=== PATIENT | female | born 1955 | race Caucasian/White ===

== ENCOUNTER → 2018-09-03 10:35 | Outpatient (CLI) | payer OTHER, SELFPAY ==
[2018-09-03 11:27] LABS: International Normalized Ratio 1.1; Prothrombin Time (Protime)PT. 14.1 SECONDS (11.7-14.9)
[2018-09-03 11:28] LABS: Partial Thromboplast Time 25.3 Seconds (24.1-36.2)
[2018-09-03 11:30] LABS: Absolute Neutrophil Count 10.2 X10^3/uL (2.0-7.7); Basophil# 0.03 X10^3/uL; Basophil% 0.2 % (0-1); Eosinophil# 0.14 X10^3/uL; Hematocrit 33.5 % (37-47); Lymphocyte % 17.3 % (19-41); Mean Corp Hgb Conc 29.9 g/gl (32-36); Mean Corpuscular Hgb 19.7 pg (27.0-32.0); Mean Corpuscular Volume 65.9 fL (81-99); Mean Platelet Vol. 10.5 fl (6.2-12.0); Monocyte# 1.06 X10^3/uL; Monocyte% 7.6 % (0-10); Neutrophil % 73.7 % (47-70); Platelet Count 487 K/mm3 (150-450); RBC Distribution Width CV 21.2 % (11.6-14.6); RBC Distribution Width SD 49.7 fl (35.1-43.9); Red Blood Count 5.08 M/mm3 (4.2-5.4); White Blood Count 13.9 K/mm3 (4.4-11.0)
[2018-09-03 11:34] LABS: Differential Indicated SCAN CRITERIA MET; POSITIVE COUNT NO; POSITIVE DIFFERENTIAL NO; POSITIVE MORPHOLOGY YES
[2018-09-03 11:49] LABS: Anisocytosis 2+; Hypochromasia 2+; Microcytosis 1+; Platelet Estimate ADEQUATE (ADEQ); Polychromasia 1+
== END ==
PROVIDERS: Referring Provider Surgery; Visit Provider Surgery
DX: Z01.818 Encounter for other preprocedural examination (principal); D64.9 Anemia, unspecified
CPT/HCPCS: 36415; 85025; 85610; 85730

== ENCOUNTER → 2019-04-10 12:52 | Outpatient (CLI) | payer OTHER, SELFPAY ==
[2018-10-01 14:43] VITALS: BMI 29.9
[2019-04-10 13:51] LABS: Absolute Lymphocyte Count 2.93 X10^3/ul (0.83-4.51); Absolute Neutrophil Count 3.4 X10^3/uL (2.0-7.7); Basophil# 0.01 X10^3/uL; Basophil% 0.1 % (0-1); Eosinophil# 0.06 X10^3/uL; Eosinophils% 0.8 % (0-5); Hematocrit 38.4 % (37-47); Lymphocyte # 2.93 X10^3/ul (4.0); Lymphocyte % 40.3 % (19-41); Mean Corp Hgb Conc 31.3 g/gl (32-36); Mean Corpuscular Hgb 26.5 pg (27.0-32.0); Mean Platelet Vol. 10.5 fl (6.2-12.0); Monocyte# 0.84 X10^3/uL; Monocyte% 11.6 % (0-10); Neutrophil # 3.41 X10^3/uL (2.7-7.7); Neutrophil % 46.9 % (47-70); POSITIVE COUNT NO; POSITIVE DIFFERENTIAL NO; POSITIVE MORPHOLOGY NO; Platelet Count 224 K/mm3 (150-450); RBC Distribution Width CV 19.2 % (11.6-14.6); RBC Distribution Width SD 59.4 fl (35.1-43.9); Red Blood Count 4.52 M/mm3 (4.2-5.4); White Blood Count 7.3 K/mm3 (4.4-11.0)
[2019-04-10 14:12] LABS: ALB/GLOB Ratio 1.1 RATIO (0.9-2.4); AST(SGOT) 12 U/L (15-37); Alanine Aminotransfer ALT/SGPT 15 U/L (13-56); Albumin, Serum 3.6 g/dL (3.2-5.0); Alkaline Phosphatase 65 U/L (45-117); Anion Gap 7 (5-15); BUN 13 mg/dL (7-18); BUN/Creat Ratio 20.5 RATIO (10-20); Calcium,Total 8.9 mg/dL (8.5-10.1); Chloride 106 mmol/L (98-107); Creatinine, Serum 0.63 mg/dL (0.55-1.02); EST Glomerular Filtration Rate 101 mL/min (>60); Est Glom Filt Rate - Afr Amer 122 mL/min (>60); Globulin 3.4 g/dL (2.2-4.2); Glucose 89 mg/dL (74-106); Sodium Level 140 mmol/L (136-145); Thyroid Stim Hormone (TSH) 0.12 uIU/mL (0.358-3.74)
== END ==
PROVIDERS: Visit Provider Obstetrics & Gynecology Gynecologic Oncology
DX: C54.1 Malignant neoplasm of endometrium (principal)
CPT/HCPCS: 80053; 84443; 85025; 96523; A4216

== ENCOUNTER → 2019-05-01 13:02 | Outpatient (CLI) | payer OTHER, SELFPAY ==
[2018-10-01 14:43] VITALS: BMI 29.9
[2019-05-01 13:45] LABS: Absolute Lymphocyte Count 2.94 X10^3/ul (0.83-4.51); Absolute Neutrophil Count 3.2 X10^3/uL (2.0-7.7); Basophil# 0.01 X10^3/uL; Basophil% 0.1 % (0-1); Eosinophil# 0.11 X10^3/uL; Eosinophils% 1.6 % (0-5); Hematocrit 37.1 % (37-47); Hemoglobin 11.5 g/dl (12.0-15.0); Lymphocyte # 2.94 X10^3/ul (4.0); Lymphocyte % 42.7 % (19-41); Mean Corpuscular Hgb 26.1 pg (27.0-32.0); Mean Corpuscular Volume 84.3 fL (81-99); Mean Platelet Vol. 11.2 fl (6.2-12.0); Monocyte# 0.64 X10^3/uL; Monocyte% 9.3 % (0-10); Neutrophil # 3.17 X10^3/uL (2.7-7.7); Platelet Count 211 K/mm3 (150-450); RBC Distribution Width CV 16.3 % (11.6-14.6); White Blood Count 6.9 K/mm3 (4.4-11.0)
[2019-05-01 13:48] LABS: POSITIVE COUNT NO; POSITIVE DIFFERENTIAL NO; POSITIVE MORPHOLOGY NO
[2019-05-01 14:01] LABS: Albumin, Serum 3.7 g/dL (3.2-5.0); BUN 11 mg/dL (7-18); BUN/Creat Ratio 18.3 RATIO (10-20); EST Glomerular Filtration Rate 107 mL/min (>60); Est Glom Filt Rate - Afr Amer 129 mL/min (>60); Glucose 94 mg/dL (74-106); Protein, Total 7.1 g/dL (6.4-8.2)
[2019-05-01 14:02] LABS: ALB/GLOB Ratio 1.1 RATIO (0.9-2.4); AST(SGOT) 12 U/L (15-37); Alanine Aminotransfer ALT/SGPT 16 U/L (13-56); Alkaline Phosphatase 79 U/L (45-117); Anion Gap 6 (5-15); Calcium,Total 9.2 mg/dL (8.5-10.1); Chloride 108 mmol/L (98-107); Globulin 3.4 g/dL (2.2-4.2); Potassium 3.7 mmol/L (3.5-5.1); Sodium Level 142 mmol/L (136-145)
[2019-05-01 21:39] LABS: Xtra Tube EP Lab EXTRA TUBE
== END ==
PROVIDERS: Referring Provider Obstetrics & Gynecology Gynecologic Oncology; Visit Provider Obstetrics & Gynecology Gynecologic Oncology
DX: Z45.2 Encounter for adjustment and management of vascular access device (principal); C54.1 Malignant neoplasm of endometrium
CPT/HCPCS: 36591; 80053; 85025; A4216

== ENCOUNTER → 2019-05-22 12:52 | Outpatient (CLI) | payer OTHER, SELFPAY ==
[2018-10-01 14:43] VITALS: BMI 29.9
[2019-05-22 13:30] LABS: Absolute Lymphocyte Count 2.94 X10^3/uL (0.83-4.51); Absolute Neutrophil Count 3.4 X10^3/uL (2.0-7.7); Basophil# 0.02 X10^3/uL; Basophil% 0.3 % (0-1); Eosinophils% 2.8 % (0-5); Hematocrit 37.6 % (37-47); Lymphocyte # 2.94 X10^3/ul (4.0); Lymphocyte % 41.6 % (19-41); Mean Corp Hgb Conc 31.9 g/dL (32-36); Mean Corpuscular Volume 84.7 fL (81-99); Mean Platelet Vol. 10.8 fl (6.2-12.0); Monocyte# 0.51 X10^3/uL; Monocyte% 7.2 % (0-10); NRBC Flagged by Analyzer 0 % (0-5); Neutrophil # 3.38 X10^3/uL (2.7-7.7); Neutrophil % 47.8 % (47-70); Platelet Count 230 K/mm3 (150-450); RBC Distribution Width CV 14.6 % (11.6-14.6); RBC Distribution Width SD 45.3 fl (35.1-43.9); Red Blood Count 4.44 M/mm3 (4.2-5.4); White Blood Count 7.1 K/mm3 (4.4-11.0)
[2019-05-22 13:44] LABS: ALB/GLOB Ratio 1.2 RATIO (0.9-2.4); AST(SGOT) 12 U/L (15-37); Alanine Aminotransfer ALT/SGPT 15 U/L (13-56); Albumin, Serum 3.9 g/dL (3.2-5.0); Alkaline Phosphatase 78 U/L (45-117); Anion Gap 6 (5-15); BUN 13 mg/dL (7-18); BUN/Creat Ratio 18.9 RATIO (10-20); Calcium,Total 9.1 mg/dL (8.5-10.1); Chloride 108 mmol/L (98-107); Creatinine, Serum 0.69 mg/dL (0.55-1.02); EST Glomerular Filtration Rate 91 mL/min (>60); Est Glom Filt Rate - Afr Amer 111 mL/min (>60); Globulin 3.2 g/dL (2.2-4.2); Glucose 92 mg/dL (74-106); Potassium 3.8 mmol/L (3.5-5.1); Protein, Total 7.1 g/dL (6.4-8.2); Sodium Level 141 mmol/L (136-145)
== END ==
PROVIDERS: Referring Provider Obstetrics & Gynecology Gynecologic Oncology; Visit Provider Obstetrics & Gynecology Gynecologic Oncology
DX: C54.1 Malignant neoplasm of endometrium (principal)
CPT/HCPCS: 36591; 80053; 85025; A4216

== ENCOUNTER → 2019-06-12 13:22 | Outpatient (CLI) | payer OTHER, SELFPAY ==
[2018-10-01 14:43] VITALS: BMI 29.9
[2019-06-12 13:59] LABS: Absolute Lymphocyte Count 3.32 X10^3/uL (0.83-4.51); Absolute Neutrophil Count 4.6 X10^3/uL (2.0-7.7); Basophil# 0.03 X10^3/uL; Basophil% 0.3 % (0-1); Eosinophil# 0.35 X10^3/uL; Eosinophils% 3.9 % (0-5); Hematocrit 37.2 % (37-47); Hemoglobin 11.6 g/dL (12.0-15.0); Lymphocyte # 3.32 X10^3/ul (4.0); Lymphocyte % 37.4 % (19-41); Mean Corp Hgb Conc 31.2 g/dL (32-36); Mean Corpuscular Volume 83.2 fL (81-99); Mean Platelet Vol. 10.7 fl (6.2-12.0); Monocyte# 0.57 X10^3/uL; Monocyte% 6.4 % (0-10); NRBC Flagged by Analyzer 0 % (0-5); Neutrophil # 4.58 X10^3/uL (2.7-7.7); Neutrophil % 51.8 % (47-70); Platelet Count 230 K/mm3 (150-450); RBC Distribution Width CV 14.1 % (11.6-14.6); RBC Distribution Width SD 42.9 fl (35.1-43.9); Red Blood Count 4.47 M/mm3 (4.2-5.4); White Blood Count 8.9 K/mm3 (4.4-11.0)
[2019-06-12 14:16] LABS: ALB/GLOB Ratio 1.2 RATIO (0.9-2.4); AST(SGOT) 11 U/L (15-37); Alanine Aminotransfer ALT/SGPT 14 U/L (13-56); Albumin, Serum 3.7 g/dL (3.2-5.0); Alkaline Phosphatase 77 U/L (45-117); Anion Gap 8 (5-15); BUN 14 mg/dL (7-18); Calcium,Total 8.9 mg/dL (8.5-10.1); Chloride 110 mmol/L (98-107); Creatinine, Serum 0.67 mg/dL (0.55-1.02); EST Glomerular Filtration Rate 95 mL/min (>60); Est Glom Filt Rate - Afr Amer 115 mL/min (>60); Globulin 3.2 g/dL (2.2-4.2); Glucose 86 mg/dL (74-106); Potassium 3.8 mmol/L (3.5-5.1); Protein, Total 6.9 g/dL (6.4-8.2); Sodium Level 145 mmol/L (136-145)
[2019-06-12 21:52] LABS: Xtra Tube EP Lab EXTRA TUBE
== END ==
PROVIDERS: Referring Provider Obstetrics & Gynecology Gynecologic Oncology; Visit Provider Obstetrics & Gynecology Gynecologic Oncology
DX: C15.4 Malignant neoplasm of middle third of esophagus (principal)
CPT/HCPCS: 36592; 80053; 85025; A4216

== ENCOUNTER → 2019-06-25 13:53 | Outpatient (CLI) | payer OTHER, SELFPAY ==
[2018-10-01 14:43] VITALS: BMI 29.9
[2019-06-25 14:14] LABS: Absolute Lymphocyte Count 3.91 X10^3/uL (0.83-4.51); Absolute Neutrophil Count 3.3 X10^3/uL (2.0-7.7); Basophil# 0.03 X10^3/uL; Basophil% 0.4 % (0-1); Eosinophil# 0.14 X10^3/uL; Eosinophils% 1.8 % (0-5); Hemoglobin 12.5 g/dL (12.0-15.0); Lymphocyte # 3.91 X10^3/ul (4.0); Lymphocyte % 48.9 % (19-41); Mean Corp Hgb Conc 31.3 g/dL (32-36); Mean Corpuscular Hgb 25.6 pg (27.0-32.0); Mean Corpuscular Volume 81.8 fL (81-99); Mean Platelet Vol. 10.5 fl (6.2-12.0); Monocyte# 0.62 X10^3/uL; Monocyte% 7.8 % (0-10); NRBC Flagged by Analyzer 0 % (0-5); Neutrophil # 3.27 X10^3/uL (2.7-7.7); Neutrophil % 40.8 % (47-70); Platelet Count 249 K/mm3 (150-450); RBC Distribution Width CV 14.6 % (11.6-14.6); RBC Distribution Width SD 42.5 fl (35.1-43.9); Red Blood Count 4.89 M/mm3 (4.2-5.4)
[2019-06-25 14:30] LABS: ALB/GLOB Ratio 1.1 RATIO (0.9-2.4); AST(SGOT) 47 U/L (15-37); Alanine Aminotransfer ALT/SGPT 57 U/L (13-56); Albumin, Serum 3.8 g/dL (3.2-5.0); Alkaline Phosphatase 86 U/L (45-117); Anion Gap 5 (5-15); BUN 11 mg/dL (7-18); BUN/Creat Ratio 13.4 RATIO (10-20); Calcium,Total 9.2 mg/dL (8.5-10.1); Chloride 109 mmol/L (98-107); Creatinine, Serum 0.82 mg/dL (0.55-1.02); EST Glomerular Filtration Rate 75 mL/min (>60); Est Glom Filt Rate - Afr Amer 91 mL/min (>60); Globulin 3.5 g/dL (2.2-4.2); Glucose 112 mg/dL (74-106); Potassium 3.7 mmol/L (3.5-5.1); Protein, Total 7.3 g/dL (6.4-8.2); Sodium Level 143 mmol/L (136-145)
== END ==
PROVIDERS: Visit Provider Obstetrics & Gynecology Gynecologic Oncology
DX: Z45.2 Encounter for adjustment and management of vascular access device (principal); C54.1 Malignant neoplasm of endometrium
CPT/HCPCS: 36591; 80053; 85025; A4216

== ENCOUNTER → 2019-07-24 12:25 | Outpatient (CLI) | payer OTHER, SELFPAY ==
[2018-10-01 14:43] VITALS: BMI 29.9
[2019-07-24 12:57] LABS: Absolute Lymphocyte Count 3.48 X10^3/uL (0.83-4.51); Absolute Neutrophil Count 3.4 X10^3/uL (2.0-7.7); Basophil# 0.03 X10^3/uL; Basophil% 0.4 % (0-1); Eosinophil# 0.22 X10^3/uL; Eosinophils% 2.8 % (0-5); Hematocrit 36.6 % (37-47); Hemoglobin 11.3 g/dL (12.0-15.0); Lymphocyte # 3.48 X10^3/ul (4.0); Mean Corp Hgb Conc 30.9 g/dL (32-36); Mean Corpuscular Hgb 24.5 pg (27.0-32.0); Mean Corpuscular Volume 79.2 fL (81-99); Mean Platelet Vol. 9.9 fl (6.2-12.0); Monocyte# 0.62 X10^3/uL; NRBC Flagged by Analyzer 0 % (0-5); Neutrophil # 3.36 X10^3/uL (2.7-7.7); Neutrophil % 43.5 % (47-70); Platelet Count 273 K/mm3 (150-450); RBC Distribution Width CV 15.3 % (11.6-14.6); RBC Distribution Width SD 43.6 fl (35.1-43.9); Red Blood Count 4.62 M/mm3 (4.2-5.4); White Blood Count 7.7 K/mm3 (4.4-11.0)
[2019-07-24 13:16] LABS: ALB/GLOB Ratio 1.2 RATIO (0.9-2.4); AST(SGOT) 12 U/L (15-37); Alanine Aminotransfer ALT/SGPT 17 U/L (13-56); Alkaline Phosphatase 77 U/L (45-117); Anion Gap 5 (5-15); BUN 12 mg/dL (7-18); Calcium,Total 9.2 mg/dL (8.5-10.1); Chloride 108 mmol/L (98-107); Creatinine, Serum 0.67 mg/dL (0.55-1.02); EST Glomerular Filtration Rate 95 mL/min (>60); Est Glom Filt Rate - Afr Amer 114 mL/min (>60); Globulin 3.3 g/dL (2.2-4.2); Glucose 94 mg/dL (74-106); Potassium 3.8 mmol/L (3.5-5.1); Protein, Total 7.3 g/dL (6.4-8.2); Sodium Level 141 mmol/L (136-145)
[2019-07-24 20:54] LABS: Xtra Tube EP Lab EXTRA TUBE
== END ==
PROVIDERS: Referring Provider Obstetrics & Gynecology Gynecologic Oncology; Visit Provider Obstetrics & Gynecology Gynecologic Oncology
DX: C54.1 Malignant neoplasm of endometrium (principal)
CPT/HCPCS: 36592; 80053; 85025; A4216

== ENCOUNTER → 2019-08-14 12:41 | Outpatient (CLI) | payer OTHER, SELFPAY ==
[2018-10-01 14:43] VITALS: BMI 29.9
[2019-08-14 12:58] LABS: Absolute Lymphocyte Count 2.26 X10^3/uL (0.83-4.51); Absolute Neutrophil Count 6.7 X10^3/uL (2.0-7.7); Basophil# 0.04 X10^3/uL; Basophil% 0.4 % (0-1); Eosinophil# 0.17 X10^3/uL; Eosinophils% 1.7 % (0-5); Hemoglobin 11.4 g/dL (12.0-15.0); Lymphocyte # 2.26 X10^3/ul (4.0); Lymphocyte % 22.8 % (19-41); Mean Corp Hgb Conc 30.8 g/dL (32-36); Mean Corpuscular Hgb 24.1 pg (27.0-32.0); Mean Corpuscular Volume 78.1 fL (81-99); Mean Platelet Vol. 9.9 fl (6.2-12.0); Monocyte# 0.72 X10^3/uL; Monocyte% 7.3 % (0-10); NRBC Flagged by Analyzer 0 % (0-5); Neutrophil # 6.67 X10^3/uL (2.7-7.7); Neutrophil % 67.3 % (47-70); Platelet Count 263 K/mm3 (150-450); RBC Distribution Width CV 16.4 % (11.6-14.6); RBC Distribution Width SD 46.4 fl (35.1-43.9); Red Blood Count 4.74 M/mm3 (4.2-5.4); White Blood Count 9.9 K/mm3 (4.4-11.0)
[2019-08-14 13:16] LABS: ALB/GLOB Ratio 1.1 RATIO (0.9-2.4); AST(SGOT) 11 U/L (15-37); Alanine Aminotransfer ALT/SGPT 18 U/L (13-56); Albumin, Serum 3.8 g/dL (3.2-5.0); Alkaline Phosphatase 76 U/L (45-117); Anion Gap 5 (5-15); BUN 7 mg/dL (7-18); BUN/Creat Ratio 10.1 RATIO (10-20); Calcium,Total 8.9 mg/dL (8.5-10.1); Chloride 109 mmol/L (98-107); Creatinine, Serum 0.69 mg/dL (0.55-1.02); EST Glomerular Filtration Rate 91 mL/min (>60); Est Glom Filt Rate - Afr Amer 110 mL/min (>60); Globulin 3.5 g/dL (2.2-4.2); Glucose 105 mg/dL (74-106); Potassium 3.8 mmol/L (3.5-5.1); Protein, Total 7.3 g/dL (6.4-8.2); Sodium Level 141 mmol/L (136-145)
== END ==
PROVIDERS: Referring Provider Obstetrics & Gynecology Gynecologic Oncology; Visit Provider Obstetrics & Gynecology Gynecologic Oncology
DX: C54.1 Malignant neoplasm of endometrium (principal)
CPT/HCPCS: 36415; 36591; 80053; 85025; A4216

== ENCOUNTER → 2019-08-23 12:30 | Outpatient (CLI) | payer OTHER, SELFPAY ==
[2018-10-01 14:43] VITALS: BMI 29.9
[2019-08-23 13:00] LABS: Absolute Neutrophil Count 4.2 X10^3/uL (2.0-7.7); Basophil# 0.05 X10^3/uL; Basophil% 0.6 % (0-1); Eosinophil# 0.26 X10^3/uL; Eosinophils% 2.9 % (0-5); Hematocrit 37.2 % (37-47); Hemoglobin 11.3 g/dL (12.0-15.0); Mean Corp Hgb Conc 30.4 g/dL (32-36); Mean Corpuscular Hgb 23.7 pg (27.0-32.0); Mean Platelet Vol. 10.2 fl (6.2-12.0); Monocyte% 8.9 % (0-10); NRBC Flagged by Analyzer 0 % (0-5); Neutrophil # 4.17 X10^3/uL (2.7-7.7); Platelet Count 334 K/mm3 (150-450); RBC Distribution Width CV 16.9 % (11.6-14.6); RBC Distribution Width SD 47.6 fl (35.1-43.9); Red Blood Count 4.77 M/mm3 (4.2-5.4)
[2019-08-23 13:09] LABS: AST(SGOT) 12 U/L (15-37); Alanine Aminotransfer ALT/SGPT 23 U/L (13-56); Albumin, Serum 3.6 g/dL (3.2-5.0); Alkaline Phosphatase 84 U/L (45-117); Anion Gap 7 (5-15); BUN 9 mg/dL (7-18); BUN/Creat Ratio 14.4 RATIO (10-20); Calcium,Total 8.7 mg/dL (8.5-10.1); Chloride 109 mmol/L (98-107); Creatinine, Serum 0.63 mg/dL (0.55-1.02); EST Glomerular Filtration Rate 102 mL/min (>60); Est Glom Filt Rate - Afr Amer 123 mL/min (>60); Globulin 3.6 g/dL (2.2-4.2); Glucose 91 mg/dL (74-106); Protein, Total 7.2 g/dL (6.4-8.2); Sodium Level 142 mmol/L (136-145)
== END ==
PROVIDERS: Visit Provider Obstetrics & Gynecology Gynecologic Oncology
DX: C54.1 Malignant neoplasm of endometrium (principal)
CPT/HCPCS: 36592; 80053; 85025; A4216

== ENCOUNTER → 2019-09-04 09:54 | Outpatient (CLI) | payer OTHER, SELFPAY ==
[2018-10-01 14:43] VITALS: BMI 29.9
[2019-09-04 10:17] LABS: Absolute Lymphocyte Count 2.96 X10^3/uL (0.83-4.51); Absolute Neutrophil Count 3.2 X10^3/uL (2.0-7.7); Basophil# 0.03 X10^3/uL; Basophil% 0.4 % (0-1); Eosinophil# 0.25 X10^3/uL; Eosinophils% 3.5 % (0-5); Hemoglobin 10.5 g/dL (12.0-15.0); Lymphocyte # 2.96 X10^3/ul (4.0); Lymphocyte % 41.5 % (19-41); Mean Corpuscular Hgb 23.5 pg (27.0-32.0); Mean Corpuscular Volume 78.3 fL (81-99); Mean Platelet Vol. 10.2 fl (6.2-12.0); Monocyte# 0.68 X10^3/uL; Monocyte% 9.5 % (0-10); NRBC Flagged by Analyzer 0 % (0-5); Neutrophil % 44.8 % (47-70); Platelet Count 306 K/mm3 (150-450); RBC Distribution Width CV 17.3 % (11.6-14.6); RBC Distribution Width SD 48.8 fl (35.1-43.9); Red Blood Count 4.47 M/mm3 (4.2-5.4); White Blood Count 7.1 K/mm3 (4.4-11.0)
[2019-09-04 10:32] LABS: AST(SGOT) 12 U/L (15-37); Alanine Aminotransfer ALT/SGPT 19 U/L (13-56); Albumin, Serum 3.6 g/dL (3.2-5.0); Alkaline Phosphatase 73 U/L (45-117); Anion Gap 6 (5-15); BUN 9 mg/dL (7-18); BUN/Creat Ratio 13.2 RATIO (10-20); Calcium,Total 8.7 mg/dL (8.5-10.1); Chloride 110 mmol/L (98-107); Creatinine, Serum 0.68 mg/dL (0.55-1.02); EST Glomerular Filtration Rate 93 mL/min (>60); Est Glom Filt Rate - Afr Amer 112 mL/min (>60); Globulin 3.5 g/dL (2.2-4.2); Glucose 108 mg/dL (74-106); Potassium 3.7 mmol/L (3.5-5.1); Protein, Total 7.1 g/dL (6.4-8.2); Sodium Level 141 mmol/L (136-145)
== END ==
PROVIDERS: Referring Provider Obstetrics & Gynecology Gynecologic Oncology; Visit Provider Obstetrics & Gynecology Gynecologic Oncology
DX: C54.1 Malignant neoplasm of endometrium (principal)
CPT/HCPCS: 36591; 80053; 85025; A4216

== ENCOUNTER → 2019-09-25 11:55 | Outpatient (CLI) | payer OTHER, SELFPAY ==
[2018-10-01 14:43] VITALS: BMI 29.9
[2019-09-25 12:47] LABS: Absolute Lymphocyte Count 3.21 X10^3/uL (0.83-4.51); Absolute Neutrophil Count 3.9 X10^3/uL (2.0-7.7); Basophil# 0.03 X10^3/uL; Basophil% 0.4 % (0-1); Eosinophil# 0.42 X10^3/uL; Hematocrit 36.2 % (37-47); Lymphocyte # 3.21 X10^3/ul (4.0); Lymphocyte % 38.3 % (19-41); Mean Corp Hgb Conc 30.4 g/dL (32-36); Mean Corpuscular Hgb 23.5 pg (27.0-32.0); Mean Corpuscular Volume 77.2 fL (81-99); Mean Platelet Vol. 10.4 fl (6.2-12.0); Monocyte# 0.77 X10^3/uL; Monocyte% 9.2 % (0-10); NRBC Flagged by Analyzer 0 % (0-5); Neutrophil # 3.93 X10^3/uL (2.7-7.7); Neutrophil % 46.7 % (47-70); Platelet Count 313 K/mm3 (150-450); RBC Distribution Width CV 17.1 % (11.6-14.6); RBC Distribution Width SD 47.6 fl (35.1-43.9); Red Blood Count 4.69 M/mm3 (4.2-5.4); White Blood Count 8.4 K/mm3 (4.4-11.0)
[2019-09-25 13:06] LABS: International Normalized Ratio 2.7; Prothrombin Time (Protime)PT. 28.7 SECONDS (11.7-14.9)
[2019-09-25 13:08] LABS: AST(SGOT) 11 U/L (15-37); Alanine Aminotransfer ALT/SGPT 20 U/L (13-56); Albumin, Serum 3.7 g/dL (3.2-5.0); Alkaline Phosphatase 76 U/L (45-117); Anion Gap 6 (5-15); BUN 12 mg/dL (7-18); BUN/Creat Ratio 15.1 RATIO (10-20); Calcium,Total 8.5 mg/dL (8.5-10.1); Chloride 107 mmol/L (98-107); Creatinine, Serum 0.79 mg/dL (0.55-1.02); EST Glomerular Filtration Rate 78 mL/min (>60); Est Glom Filt Rate - Afr Amer 94 mL/min (>60); Globulin 3.6 g/dL (2.2-4.2); Glucose 106 mg/dL (74-106); Potassium 3.7 mmol/L (3.5-5.1); Protein, Total 7.3 g/dL (6.4-8.2); Sodium Level 141 mmol/L (136-145)
== END ==
PROVIDERS: Referring Provider Obstetrics & Gynecology Gynecologic Oncology; Visit Provider Obstetrics & Gynecology Gynecologic Oncology
DX: C54.1 Malignant neoplasm of endometrium (principal); K55.069 Acute infarction of intestine, part and extent unspecified
CPT/HCPCS: 36591; 80053; 85025; 85610; A4216

== ENCOUNTER → 2019-10-14 11:13 | Outpatient (CLI) | payer OTHER, SELFPAY ==
[2018-10-01 14:43] VITALS: BMI 29.9
[2019-10-14 11:43] LABS: Absolute Lymphocyte Count 3.17 X10^3/uL (0.83-4.51); Basophil# 0.04 X10^3/uL; Basophil% 0.6 % (0-1); Eosinophil# 0.29 X10^3/uL; Eosinophils% 4.1 % (0-5); Hematocrit 34.5 % (37-47); Hemoglobin 10.3 g/dL (12.0-15.0); Lymphocyte # 3.17 X10^3/ul (4.0); Lymphocyte % 44.5 % (19-41); Mean Corp Hgb Conc 29.9 g/dL (32-36); Mean Corpuscular Hgb 22.7 pg (27.0-32.0); Mean Corpuscular Volume 76.2 fL (81-99); Mean Platelet Vol. 10.4 fl (6.2-12.0); Monocyte# 0.65 X10^3/uL; Monocyte% 9.1 % (0-10); NRBC Flagged by Analyzer 0 % (0-5); Neutrophil # 2.96 X10^3/uL (2.7-7.7); Neutrophil % 41.4 % (47-70); Platelet Count 287 K/mm3 (150-450); RBC Distribution Width SD 46.5 fl (35.1-43.9); Red Blood Count 4.53 M/mm3 (4.2-5.4); White Blood Count 7.1 K/mm3 (4.4-11.0)
[2019-10-14 11:51] LABS: ALB/GLOB Ratio 1.1 RATIO (0.9-2.4); AST(SGOT) 12 U/L (15-37); Alanine Aminotransfer ALT/SGPT 20 U/L (13-56); Albumin, Serum 3.6 g/dL (3.2-5.0); Alkaline Phosphatase 86 U/L (45-117); Anion Gap 5 (5-15); BUN 11 mg/dL (7-18); BUN/Creat Ratio 16.6 RATIO (10-20); Calcium,Total 8.3 mg/dL (8.5-10.1); Chloride 110 mmol/L (98-107); Creatinine, Serum 0.66 mg/dL (0.55-1.02); EST Glomerular Filtration Rate 96 mL/min (>60); Est Glom Filt Rate - Afr Amer 116 mL/min (>60); Globulin 3.3 g/dL (2.2-4.2); Glucose 103 mg/dL (74-106); Protein, Total 6.9 g/dL (6.4-8.2); Sodium Level 143 mmol/L (136-145)
[2019-10-14 11:56] LABS: Prothrombin Time (Protime)PT. 36.1 SECONDS (11.7-14.9)
[2019-10-14 12:25] LABS: International Normalized Ratio 3.6
== END ==
PROVIDERS: Referring Provider Obstetrics & Gynecology Gynecologic Oncology; Visit Provider Obstetrics & Gynecology Gynecologic Oncology
DX: C54.1 Malignant neoplasm of endometrium (principal)
CPT/HCPCS: 36591; 80053; 85025; 85610; A4216

== ENCOUNTER → 2019-11-06 10:33 | Outpatient (CLI) | payer OTHER, SELFPAY ==
[2018-10-01 14:43] VITALS: BMI 29.9
[2019-11-06 11:09] LABS: Absolute Lymphocyte Count 2.69 X10^3/uL (0.83-4.51); Absolute Neutrophil Count 2.8 X10^3/uL (2.0-7.7); Basophil# 0.04 X10^3/uL; Basophil% 0.6 % (0-1); Eosinophil# 0.21 X10^3/uL; Eosinophils% 3.3 % (0-5); Hematocrit 33.4 % (37-47); Hemoglobin 9.7 g/dL (12.0-15.0); Lymphocyte # 2.69 X10^3/ul (4.0); Lymphocyte % 42.6 % (19-41); Mean Corpuscular Hgb 21.6 pg (27.0-32.0); Mean Corpuscular Volume 74.2 fL (81-99); Mean Platelet Vol. 10.4 fl (6.2-12.0); Monocyte# 0.53 X10^3/uL; Monocyte% 8.4 % (0-10); NRBC Flagged by Analyzer 0 % (0-5); Neutrophil # 2.84 X10^3/uL (2.7-7.7); Neutrophil % 44.9 % (47-70); Platelet Count 288 K/mm3 (150-450); RBC Distribution Width CV 17.1 % (11.6-14.6); RBC Distribution Width SD 45.1 fl (35.1-43.9); White Blood Count 6.3 K/mm3 (4.4-11.0)
[2019-11-06 11:19] LABS: International Normalized Ratio 1.6; Prothrombin Time (Protime)PT. 18.7 SECONDS (11.7-14.9)
[2019-11-06 11:25] LABS: AST(SGOT) 11 U/L (15-37); Alanine Aminotransfer ALT/SGPT 17 U/L (13-56); Albumin, Serum 3.5 g/dL (3.2-5.0); Alkaline Phosphatase 82 U/L (45-117); Anion Gap 5 (5-15); BUN 12 mg/dL (7-18); BUN/Creat Ratio 18.7 RATIO (10-20); Calcium,Total 8.6 mg/dL (8.5-10.1); Chloride 110 mmol/L (98-107); Creatinine, Serum 0.64 mg/dL (0.55-1.02); EST Glomerular Filtration Rate 99 mL/min (>60); Est Glom Filt Rate - Afr Amer 120 mL/min (>60); Globulin 3.5 g/dL (2.2-4.2); Glucose 92 mg/dL (74-106); Potassium 3.7 mmol/L (3.5-5.1); Sodium Level 143 mmol/L (136-145)
== END ==
PROVIDERS: Referring Provider Obstetrics & Gynecology Gynecologic Oncology; Visit Provider Obstetrics & Gynecology Gynecologic Oncology
DX: Z45.2 Encounter for adjustment and management of vascular access device (principal); C54.1 Malignant neoplasm of endometrium
CPT/HCPCS: 36591; 80053; 85025; 85610; A4216

== ENCOUNTER → 2019-11-27 10:24 | Outpatient (CLI) | payer OTHER, SELFPAY ==
[2018-10-01 14:43] VITALS: BMI 29.9
[2019-11-27 10:53] LABS: Absolute Lymphocyte Count 3.19 X10^3/uL (0.83-4.51); Basophil# 0.03 X10^3/uL; Basophil% 0.4 % (0-1); Eosinophil# 0.19 X10^3/uL; Eosinophils% 2.7 % (0-5); Hematocrit 33.3 % (37-47); Hemoglobin 9.9 g/dL (12.0-15.0); Lymphocyte # 3.19 X10^3/ul (4.0); Lymphocyte % 45.6 % (19-41); Mean Corp Hgb Conc 29.7 g/dL (32-36); Mean Corpuscular Hgb 21.7 pg (27.0-32.0); Mean Corpuscular Volume 72.9 fL (81-99); Mean Platelet Vol. 10.2 fl (6.2-12.0); Monocyte# 0.59 X10^3/uL; Monocyte% 8.4 % (0-10); NRBC Flagged by Analyzer 0 % (0-5); Neutrophil # 2.98 X10^3/uL (2.7-7.7); Neutrophil % 42.6 % (47-70); Platelet Count 297 K/mm3 (150-450); RBC Distribution Width CV 17.2 % (11.6-14.6); RBC Distribution Width SD 44.9 fl (35.1-43.9); Red Blood Count 4.57 M/mm3 (4.2-5.4)
[2019-11-27 11:10] LABS: AST(SGOT) 10 U/L (15-37); Alanine Aminotransfer ALT/SGPT 17 U/L (13-56); Albumin, Serum 3.6 g/dL (3.2-5.0); Alkaline Phosphatase 83 U/L (45-117); Anion Gap 4 (5-15); BUN 10 mg/dL (7-18); BUN/Creat Ratio 13.8 RATIO (10-20); Calcium,Total 8.8 mg/dL (8.5-10.1); Chloride 111 mmol/L (98-107); Creatinine, Serum 0.73 mg/dL (0.55-1.02); EST Glomerular Filtration Rate 86 mL/min (>60); Est Glom Filt Rate - Afr Amer 104 mL/min (>60); Globulin 3.5 g/dL (2.2-4.2); Glucose 104 mg/dL (74-106); Potassium 3.6 mmol/L (3.5-5.1); Protein, Total 7.1 g/dL (6.4-8.2); Sodium Level 142 mmol/L (136-145)
== END ==
PROVIDERS: Referring Provider Obstetrics & Gynecology Gynecologic Oncology; Visit Provider Obstetrics & Gynecology Gynecologic Oncology
DX: Z45.2 Encounter for adjustment and management of vascular access device (principal); C54.1 Malignant neoplasm of endometrium
CPT/HCPCS: 36415; 80053; 85025; 96523; A4216

== ENCOUNTER → 2019-12-18 12:21 | Outpatient (CLI) | payer OTHER, SELFPAY ==
[2018-10-01 14:43] VITALS: BMI 29.9
[2019-12-18 12:54] LABS: Absolute Lymphocyte Count 2.69 X10^3/uL (0.83-4.51); Absolute Neutrophil Count 3.6 X10^3/uL (2.0-7.7); Basophil# 0.03 X10^3/uL; Basophil% 0.4 % (0-1); Eosinophil# 0.15 X10^3/uL; Eosinophils% 2.1 % (0-5); Hematocrit 32.2 % (37-47); Hemoglobin 9.3 g/dL (12.0-15.0); Lymphocyte # 2.69 X10^3/ul (4.0); Lymphocyte % 37.6 % (19-41); Mean Corp Hgb Conc 28.9 g/dL (32-36); Mean Corpuscular Hgb 20.9 pg (27.0-32.0); Mean Corpuscular Volume 72.2 fL (81-99); Mean Platelet Vol. 10.1 fl (6.2-12.0); Monocyte# 0.69 X10^3/uL; Monocyte% 9.7 % (0-10); NRBC Flagged by Analyzer 0 % (0-5); Neutrophil # 3.56 X10^3/uL (2.7-7.7); Neutrophil % 49.8 % (47-70); Platelet Count 280 K/mm3 (150-450); RBC Distribution Width CV 18.1 % (11.6-14.6); RBC Distribution Width SD 46.2 fl (35.1-43.9); Red Blood Count 4.46 M/mm3 (4.2-5.4); White Blood Count 7.2 K/mm3 (4.4-11.0)
[2019-12-18 13:05] LABS: International Normalized Ratio 2.7; Prothrombin Time (Protime)PT. 28.6 SECONDS (11.7-14.9)
[2019-12-18 13:09] LABS: AST(SGOT) 11 U/L (15-37); Alanine Aminotransfer ALT/SGPT 19 U/L (13-56); Albumin, Serum 3.8 g/dL (3.2-5.0); Alkaline Phosphatase 85 U/L (45-117); Anion Gap 5 (5-15); BUN 11 mg/dL (7-18); BUN/Creat Ratio 16.6 RATIO (10-20); Calcium,Total 8.7 mg/dL (8.5-10.1); Chloride 109 mmol/L (98-107); Creatinine, Serum 0.66 mg/dL (0.55-1.02); EST Glomerular Filtration Rate 95 mL/min (>60); Est Glom Filt Rate - Afr Amer 116 mL/min (>60); Globulin 3.7 g/dL (2.2-4.2); Glucose 96 mg/dL (74-106); Potassium 3.8 mmol/L (3.5-5.1); Protein, Total 7.5 g/dL (6.4-8.2); Sodium Level 141 mmol/L (136-145)
== END ==
PROVIDERS: Referring Provider Obstetrics & Gynecology Gynecologic Oncology; Visit Provider Obstetrics & Gynecology Gynecologic Oncology
DX: C54.1 Malignant neoplasm of endometrium (principal); K55.069 Acute infarction of intestine, part and extent unspecified
CPT/HCPCS: 36591; 80053; 85025; 85610; A4216

== ENCOUNTER → 2020-01-08 09:55 | Outpatient (CLI) | payer OTHER, SELFPAY ==
[2018-10-01 14:43] VITALS: BMI 29.9
[2020-01-08 10:26] LABS: Absolute Lymphocyte Count 2.62 X10^3/uL (0.83-4.51); Absolute Neutrophil Count 2.8 X10^3/uL (2.0-7.7); Basophil# 0.04 X10^3/uL; Basophil% 0.6 % (0-1); Eosinophil# 0.25 X10^3/uL; Hematocrit 31.7 % (37-47); Hemoglobin 9.1 g/dL (12.0-15.0); Lymphocyte # 2.62 X10^3/ul (4.0); Lymphocyte % 41.6 % (19-41); Mean Corp Hgb Conc 28.7 g/dL (32-36); Mean Corpuscular Hgb 20.6 pg (27.0-32.0); Mean Corpuscular Volume 71.9 fL (81-99); Mean Platelet Vol. 10.2 fl (6.2-12.0); Monocyte# 0.57 X10^3/uL; NRBC Flagged by Analyzer 0 % (0-5); Neutrophil # 2.79 X10^3/uL (2.7-7.7); Neutrophil % 44.3 % (47-70); Platelet Count 301 K/mm3 (150-450); RBC Distribution Width CV 18.6 % (11.6-14.6); RBC Distribution Width SD 47.3 fl (35.1-43.9); Red Blood Count 4.41 M/mm3 (4.2-5.4); White Blood Count 6.3 K/mm3 (4.4-11.0)
[2020-01-08 10:42] LABS: AST(SGOT) 15 U/L (15-37); Alanine Aminotransfer ALT/SGPT 17 U/L (13-56); Albumin, Serum 3.5 g/dL (3.2-5.0); Alkaline Phosphatase 83 U/L (45-117); Anion Gap 6 (5-15); BUN 12 mg/dL (7-18); BUN/Creat Ratio 17.6 RATIO (10-20); Calcium,Total 8.4 mg/dL (8.5-10.1); Chloride 109 mmol/L (98-107); Creatinine, Serum 0.68 mg/dL (0.55-1.02); EST Glomerular Filtration Rate 92 mL/min (>60); Est Glom Filt Rate - Afr Amer 112 mL/min (>60); Globulin 3.4 g/dL (2.2-4.2); Glucose 119 mg/dL (74-106); Potassium 3.7 mmol/L (3.5-5.1); Protein, Total 6.9 g/dL (6.4-8.2); Sodium Level 140 mmol/L (136-145)
[2020-01-08 10:43] LABS: International Normalized Ratio 2.3
== END ==
PROVIDERS: Referring Provider Obstetrics & Gynecology Gynecologic Oncology; Visit Provider Obstetrics & Gynecology Gynecologic Oncology
DX: Z45.2 Encounter for adjustment and management of vascular access device (principal); C54.1 Malignant neoplasm of endometrium
CPT/HCPCS: 36591; 80053; 85025; 85610; A4216

== ENCOUNTER → 2020-01-29 10:15 | Outpatient (CLI) | payer OTHER, SELFPAY ==
[2018-10-01 14:43] VITALS: BMI 29.9
[2020-01-29] MEDS: 0.9% NaCl VAD Flush IV (10:29)
[2020-01-29 10:40] LABS: Absolute Neutrophil Count 3.4 X10^3/uL (2.0-7.7); Basophil# 0.03 X10^3/uL; Basophil% 0.4 % (0-1); Eosinophil# 0.22 X10^3/uL; Eosinophils% 3.2 % (0-5); Hematocrit 32.8 % (37-47); Hemoglobin 9.3 g/dL (12.0-15.0); Lymphocyte % 36.9 % (19-41); Mean Corp Hgb Conc 28.4 g/dL (32-36); Mean Corpuscular Hgb 20.1 pg (27.0-32.0); Mean Corpuscular Volume 70.8 fL (81-99); Mean Platelet Vol. 9.9 fl (6.2-12.0); Monocyte# 0.61 X10^3/uL; NRBC Flagged by Analyzer 0 % (0-5); Neutrophil # 3.39 X10^3/uL (2.7-7.7); Neutrophil % 50.1 % (47-70); Platelet Count 338 K/mm3 (150-450); RBC Distribution Width CV 18.5 % (11.6-14.6); RBC Distribution Width SD 46.4 fl (35.1-43.9); Red Blood Count 4.63 M/mm3 (4.2-5.4); White Blood Count 6.8 K/mm3 (4.4-11.0)
[2020-01-29 10:55] LABS: ALB/GLOB Ratio 1.1 RATIO (0.9-2.4); AST(SGOT) 13 U/L (15-37); Alanine Aminotransfer ALT/SGPT 18 U/L (13-56); Albumin, Serum 3.7 g/dL (3.2-5.0); Alkaline Phosphatase 86 U/L (45-117); Anion Gap 5 (5-15); BUN 13 mg/dL (7-18); BUN/Creat Ratio 17.4 RATIO (10-20); Calcium,Total 8.8 mg/dL (8.5-10.1); Chloride 112 mmol/L (98-107); Creatinine, Serum 0.74 mg/dL (0.55-1.02); EST Glomerular Filtration Rate 83 mL/min (>60); Est Glom Filt Rate - Afr Amer 101 mL/min (>60); Globulin 3.3 g/dL (2.2-4.2); Glucose 101 mg/dL (74-106); Potassium 3.8 mmol/L (3.5-5.1); Sodium Level 143 mmol/L (136-145)
[2020-01-29 11:00] LABS: Prothrombin Time (Protime)PT. 36.1 SECONDS (11.7-14.9)
[2020-01-29 11:29] LABS: International Normalized Ratio 3.7
== END ==
PROVIDERS: Referring Provider Obstetrics & Gynecology Gynecologic Oncology; Visit Provider Obstetrics & Gynecology Gynecologic Oncology
DX: Z45.2 Encounter for adjustment and management of vascular access device (principal); C54.1 Malignant neoplasm of endometrium; K55.069 Acute infarction of intestine, part and extent unspecified
CPT/HCPCS: 36592; 80053; 85025; 85610; A4216

== ENCOUNTER → 2020-02-03 13:23 | Outpatient (CLI) | payer OTHER, SELFPAY ==
[2018-10-01 14:43] VITALS: BMI 29.9
[2020-02-03 15:25] LABS: International Normalized Ratio 2.8; Prothrombin Time (Protime)PT. 28.8 SECONDS (11.7-14.9)
== END ==
PROVIDERS: Referring Provider Obstetrics & Gynecology Gynecologic Oncology; Visit Provider Obstetrics & Gynecology Gynecologic Oncology
DX: Z45.2 Encounter for adjustment and management of vascular access device (principal); C54.1 Malignant neoplasm of endometrium; K55.069 Acute infarction of intestine, part and extent unspecified
CPT/HCPCS: 36415; 85610

== ENCOUNTER → 2020-02-18 13:25 | Outpatient (CLI) | payer OTHER, SELFPAY ==
[2018-10-01 14:43] VITALS: BMI 29.9
[2020-02-18 13:52] LABS: Absolute Lymphocyte Count 2.42 X10^3/uL (0.83-4.51); Absolute Neutrophil Count 4.8 X10^3/uL (2.0-7.7); Basophil# 0.03 X10^3/uL; Basophil% 0.4 % (0-1); Eosinophil# 0.15 X10^3/uL; Eosinophils% 1.9 % (0-5); Hematocrit 30.6 % (37-47); Hemoglobin 8.8 g/dL (12.0-15.0); Lymphocyte # 2.42 X10^3/ul (4.0); Lymphocyte % 30.5 % (19-41); Mean Corp Hgb Conc 28.8 g/dL (32-36); Mean Corpuscular Hgb 19.8 pg (27.0-32.0); Mean Corpuscular Volume 68.9 fL (81-99); Mean Platelet Vol. 10.1 fl (6.2-12.0); Monocyte# 0.53 X10^3/uL; Monocyte% 6.7 % (0-10); NRBC Flagged by Analyzer 0 % (0-5); Neutrophil # 4.78 X10^3/uL (2.7-7.7); Neutrophil % 60.1 % (47-70); Platelet Count 342 K/mm3 (150-450); RBC Distribution Width CV 18.4 % (11.6-14.6); RBC Distribution Width SD 45.3 fl (35.1-43.9); Red Blood Count 4.44 M/mm3 (4.2-5.4); White Blood Count 7.9 K/mm3 (4.4-11.0)
[2020-02-18 13:55] LABS: International Normalized Ratio 2.7; Prothrombin Time (Protime)PT. 28.3 SECONDS (11.7-14.9)
[2020-02-18 14:02] LABS: AST(SGOT) 11 U/L (15-37); Alanine Aminotransfer ALT/SGPT 18 U/L (13-56); Albumin, Serum 3.5 g/dL (3.2-5.0); Alkaline Phosphatase 84 U/L (45-117); Anion Gap 6 (5-15); BUN 10 mg/dL (7-18); BUN/Creat Ratio 14.3 RATIO (10-20); Calcium,Total 8.6 mg/dL (8.5-10.1); Chloride 110 mmol/L (98-107); EST Glomerular Filtration Rate 89 mL/min (>60); Est Glom Filt Rate - Afr Amer 108 mL/min (>60); Globulin 3.4 g/dL (2.2-4.2); Glucose 110 mg/dL (74-106); Potassium 3.5 mmol/L (3.5-5.1); Protein, Total 6.9 g/dL (6.4-8.2); Sodium Level 142 mmol/L (136-145)
== END ==
PROVIDERS: Referring Provider Obstetrics & Gynecology Gynecologic Oncology; Visit Provider Obstetrics & Gynecology Gynecologic Oncology
DX: Z45.2 Encounter for adjustment and management of vascular access device (principal); C54.1 Malignant neoplasm of endometrium; K55.069 Acute infarction of intestine, part and extent unspecified
CPT/HCPCS: 36592; 80053; 85025; 85610; A4216

== ENCOUNTER → 2020-03-11 13:19 | Outpatient (CLI) | payer OTHER, SELFPAY ==
[2018-10-01 14:43] VITALS: BMI 29.9
[2020-03-11] MEDS: 0.9% Saline Lock 10 ML Syringe IV (13:37)
[2020-03-11] MEDS: 0.9 % NaCl (Sterile) Posiflush 10 mL IV (13:37)
[2020-03-11 13:55] LABS: Absolute Lymphocyte Count 2.81 X10^3/uL (0.83-4.51); Absolute Neutrophil Count 3.7 X10^3/uL (2.0-7.7); Basophil# 0.03 X10^3/uL; Basophil% 0.4 % (0-1); Eosinophil# 0.15 X10^3/uL; Hematocrit 31.4 % (37-47); Hemoglobin 8.8 g/dL (12.0-15.0); Lymphocyte # 2.81 X10^3/ul (4.0); Lymphocyte % 38.2 % (19-41); Mean Corpuscular Hgb 19.2 pg (27.0-32.0); Mean Corpuscular Volume 68.6 fL (81-99); Mean Platelet Vol. 10.4 fl (6.2-12.0); Monocyte# 0.62 X10^3/uL; Monocyte% 8.4 % (0-10); NRBC Flagged by Analyzer 0 % (0-5); Neutrophil # 3.73 X10^3/uL (2.7-7.7); Neutrophil % 50.7 % (47-70); Platelet Count 370 K/mm3 (150-450); RBC Distribution Width CV 18.7 % (11.6-14.6); RBC Distribution Width SD 45.1 fl (35.1-43.9); Red Blood Count 4.58 M/mm3 (4.2-5.4); White Blood Count 7.4 K/mm3 (4.4-11.0)
[2020-03-11 14:07] LABS: ALB/GLOB Ratio 1.1 RATIO (0.9-2.4); AST(SGOT) 10 U/L (15-37); Alanine Aminotransfer ALT/SGPT 18 U/L (13-56); Albumin, Serum 3.7 g/dL (3.2-5.0); Alkaline Phosphatase 93 U/L (45-117); Anion Gap 6 (5-15); BUN 9 mg/dL (7-18); BUN/Creat Ratio 13.1 RATIO (10-20); Chloride 107 mmol/L (98-107); Creatinine, Serum 0.68 mg/dL (0.55-1.02); EST Glomerular Filtration Rate 92 mL/min (>60); Est Glom Filt Rate - Afr Amer 111 mL/min (>60); Globulin 3.5 g/dL (2.2-4.2); Glucose 96 mg/dL (74-106); Potassium 3.6 mmol/L (3.5-5.1); Protein, Total 7.2 g/dL (6.4-8.2); Sodium Level 140 mmol/L (136-145)
[2020-03-11 14:10] LABS: International Normalized Ratio 2.7; Prothrombin Time (Protime)PT. 28.2 SECONDS (11.7-14.9)
[2020-03-11 21:46] LABS: Xtra Tube EP Lab EXTRA TUBE
== END ==
PROVIDERS: Referring Provider Obstetrics & Gynecology Gynecologic Oncology; Visit Provider Obstetrics & Gynecology Gynecologic Oncology
DX: C54.1 Malignant neoplasm of endometrium (principal); K55.069 Acute infarction of intestine, part and extent unspecified
CPT/HCPCS: 36591; 80053; 85025; 85610; A4216

== ENCOUNTER → 2020-04-21 09:50 | Outpatient (CLI) | payer OTHER, SELFPAY ==
[2018-10-01 14:43] VITALS: BMI 29.9
[2020-04-21] MEDS: 0.9 % NaCl (Sterile) Posiflush 10 mL IV (10:05)
[2020-04-21] MEDS: 0.9% NaCl VAD Flush IV (10:05)
[2020-04-21 10:15] LABS: Absolute Lymphocyte Count 2.16 X10^3/uL (0.83-4.51); Absolute Neutrophil Count 4.2 X10^3/uL (2.0-7.7); Basophil# 0.03 X10^3/uL; Basophil% 0.4 % (0-1); Eosinophils% 2.7 % (0-5); Hematocrit 31.3 % (37-47); Hemoglobin 8.6 g/dL (12.0-15.0); Lymphocyte # 2.16 X10^3/ul (4.0); Lymphocyte % 29.4 % (19-41); Mean Corp Hgb Conc 27.5 g/dL (32-36); Mean Corpuscular Hgb 18.5 pg (27.0-32.0); Mean Corpuscular Volume 67.5 fL (81-99); Mean Platelet Vol. 10.3 fl (6.2-12.0); Monocyte# 0.73 X10^3/uL; Monocyte% 9.9 % (0-10); NRBC Flagged by Analyzer 0 % (0-5); Neutrophil # 4.19 X10^3/uL (2.7-7.7); Neutrophil % 57.2 % (47-70); Platelet Count 383 K/mm3 (150-450); RBC Distribution Width CV 19.1 % (11.6-14.6); RBC Distribution Width SD 45.2 fl (35.1-43.9); Red Blood Count 4.64 M/mm3 (4.2-5.4); White Blood Count 7.3 K/mm3 (4.4-11.0)
[2020-04-21 10:25] LABS: International Normalized Ratio 2.5; Prothrombin Time (Protime)PT. 26.7 SECONDS (11.7-14.9)
[2020-04-21 10:32] LABS: AST(SGOT) 10 U/L (15-37); Alanine Aminotransfer ALT/SGPT 17 U/L (13-56); Albumin, Serum 3.6 g/dL (3.2-5.0); Alkaline Phosphatase 92 U/L (45-117); Anion Gap 5 (5-15); BUN 9 mg/dL (7-18); BUN/Creat Ratio 12.6 RATIO (10-20); Calcium,Total 8.4 mg/dL (8.5-10.1); Chloride 110 mmol/L (98-107); Creatinine, Serum 0.72 mg/dL (0.55-1.02); EST Glomerular Filtration Rate 87 mL/min (>60); Est Glom Filt Rate - Afr Amer 105 mL/min (>60); Globulin 3.6 g/dL (2.2-4.2); Glucose 106 mg/dL (74-106); Potassium 3.7 mmol/L (3.5-5.1); Protein, Total 7.2 g/dL (6.4-8.2); Sodium Level 142 mmol/L (136-145)
== END ==
PROVIDERS: Referring Provider Obstetrics & Gynecology Gynecologic Oncology; Visit Provider Obstetrics & Gynecology Gynecologic Oncology
DX: Z45.2 Encounter for adjustment and management of vascular access device (principal); C54.1 Malignant neoplasm of endometrium; K55.069 Acute infarction of intestine, part and extent unspecified
CPT/HCPCS: 36591; 80053; 85025; 85610; A4216

== ENCOUNTER → 2020-06-03 11:30 | Outpatient (CLI) | payer OTHER, SELFPAY ==
[2018-10-01 14:43] VITALS: BMI 29.9
[2020-06-03] MEDS: 0.9 % NaCl (Sterile) Posiflush 10 mL IV (11:55)
[2020-06-03] MEDS: 0.9% Saline Lock 10 ML Syringe IV (11:56)
[2020-06-03 12:09] LABS: International Normalized Ratio 2.9; Prothrombin Time (Protime)PT. 29.9 SECONDS (11.7-14.9)
[2020-06-05 10:08] LABS: Absolute Lymphocyte Count 2.24 X10^3/uL (0.83-4.51); Basophil# 0.04 X10^3/uL; Basophil% 0.6 % (0-1); Eosinophil# 0.14 X10^3/uL; Eosinophils% 1.9 % (0-5); Hematocrit 31.7 % (37-47); Hemoglobin 8.4 g/dL (12.0-15.0); Lymphocyte # 2.24 X10^3/ul (4.0); Mean Corp Hgb Conc 26.5 g/dL (32-36); Mean Corpuscular Hgb 17.8 pg (27.0-32.0); Mean Corpuscular Volume 67.2 fL (81-99); Monocyte# 0.79 X10^3/uL; Monocyte% 10.9 % (0-10); NRBC Flagged by Analyzer 0 % (0-5); Neutrophil % 55.3 % (47-70); POSITIVE COUNT YES; Platelet Count 262 K/mm3 (150-450); RBC Distribution Width CV 19.9 % (11.6-14.6); RBC Distribution Width SD 46.2 fl (35.1-43.9); Red Blood Count 4.72 M/mm3 (4.2-5.4); White Blood Count 7.2 K/mm3 (4.4-11.0)
[2020-06-05 10:12] LABS: ALB/GLOB Ratio 1.2 RATIO (0.9-2.4); AST(SGOT) 12 U/L (15-37); Alanine Aminotransfer ALT/SGPT 15 U/L (13-56); Albumin, Serum 3.8 g/dL (3.2-5.0); Alkaline Phosphatase 87 U/L (45-117); Anion Gap 6 (5-15); BUN 6 mg/dL (7-18); BUN/Creat Ratio 7.9 RATIO (10-20); Calcium,Total 8.9 mg/dL (8.5-10.1); Chloride 110 mmol/L (98-107); Creatinine, Serum 0.76 mg/dL (0.55-1.02); EST Glomerular Filtration Rate 81 mL/min (>60); Est Glom Filt Rate - Afr Amer 98 mL/min (>60); Globulin 3.3 g/dL (2.2-4.2); Glucose 108 mg/dL (74-106); Potassium 3.9 mmol/L (3.5-5.1); Protein, Total 7.1 g/dL (6.4-8.2); Sodium Level 143 mmol/L (136-145)
[2020-06-05 10:36] LABS: Differential Indicated SCAN CRITERIA MET
[2020-06-05 10:42] LABS: Differential Comment SCANNED; Platelet Estimate ADEQUATE (ADEQ)
== END ==
PROVIDERS: Referring Provider Obstetrics & Gynecology Gynecologic Oncology; Visit Provider Obstetrics & Gynecology Gynecologic Oncology
DX: C54.1 Malignant neoplasm of endometrium (principal); K55.069 Acute infarction of intestine, part and extent unspecified
CPT/HCPCS: 36591; 80053; 85025; 85610; A4216

== ENCOUNTER 2020-06-30 10:39 | Outpatient (RCR) | payer OTHER, SELFPAY ==
[2018-10-01 14:43] VITALS: BMI 29.9
[2020-06-23 12:52] LABS: Prothrombin Time (Protime)PT. 38.8 SECONDS (11.7-14.9)
[2020-06-30 11:37] LABS: International Normalized Ratio 1.7; Prothrombin Time (Protime)PT. 19.4 SECONDS (11.7-14.9)
== END 2020-07-22 23:59 ==
LOC: PAVLAB 10:39
PROVIDERS: Referring Provider Family Medicine; Visit Provider Family Medicine
DX: K55.069 Acute infarction of intestine, part and extent unspecified (principal); Z79.01 Long term (current) use of anticoagulants
CPT/HCPCS: 36415; 85610

== ENCOUNTER → 2020-07-15 11:06 | Outpatient (CLI) | payer OTHER, SELFPAY ==
[2018-10-01 14:43] VITALS: BMI 29.9
[2020-07-15 11:47] LABS: Absolute Lymphocyte Count 1.92 X10^3/uL (0.83-4.51); Absolute Neutrophil Count 5.7 X10^3/uL (2.0-7.7); Basophil# 0.03 X10^3/uL; Basophil% 0.3 % (0-1); Eosinophil# 0.18 X10^3/uL; Eosinophils% 2.1 % (0-5); Hematocrit 29.5 % (37-47); Hemoglobin 8.1 g/dL (12.0-15.0); Lymphocyte # 1.92 X10^3/ul (4.0); Lymphocyte % 22.2 % (19-41); Mean Corp Hgb Conc 27.5 g/dL (32-36); Mean Corpuscular Hgb 17.6 pg (27.0-32.0); Mean Corpuscular Volume 64.3 fL (81-99); Mean Platelet Vol. 10.9 fl (6.2-12.0); Monocyte# 0.75 X10^3/uL; Monocyte% 8.7 % (0-10); NRBC Flagged by Analyzer 0 % (0-5); Neutrophil # 5.73 X10^3/uL (2.7-7.7); Neutrophil % 66.2 % (47-70); POSITIVE MORPHOLOGY YES; Platelet Count 320 K/mm3 (150-450); RBC Distribution Width CV 20.6 % (11.6-14.6); RBC Distribution Width SD 45.9 fl (35.1-43.9); Red Blood Count 4.59 M/mm3 (4.2-5.4); White Blood Count 8.7 K/mm3 (4.4-11.0)
[2020-07-15 11:48] LABS: Differential Indicated SCAN CRITERIA MET
[2020-07-15 12:06] LABS: AST(SGOT) 12 U/L (15-37); Alanine Aminotransfer ALT/SGPT 17 U/L (13-56); Albumin, Serum 3.6 g/dL (3.2-5.0); Alkaline Phosphatase 95 U/L (45-117); Anion Gap 6 (5-15); BUN 6 mg/dL (7-18); BUN/Creat Ratio 7.4 RATIO (10-20); Calcium,Total 8.7 mg/dL (8.5-10.1); Chloride 109 mmol/L (98-107); Creatinine, Serum 0.81 mg/dL (0.55-1.02); EST Glomerular Filtration Rate 76 mL/min (>60); Est Glom Filt Rate - Afr Amer 92 mL/min (>60); Globulin 3.5 g/dL (2.2-4.2); Glucose 118 mg/dL (74-106); Potassium 3.6 mmol/L (3.5-5.1); Protein, Total 7.1 g/dL (6.4-8.2); Sodium Level 141 mmol/L (136-145)
[2020-07-15 12:14] LABS: Anisocytosis 2+; Hypochromasia 2+; Ovalocyte 1+; Platelet Estimate ADEQUATE (ADEQ)
[2020-07-15 12:18] LABS: International Normalized Ratio 2.1; Prothrombin Time (Protime)PT. 22.8 SECONDS (11.7-14.9)
== END ==
PROVIDERS: Referring Provider Obstetrics & Gynecology Gynecologic Oncology; Visit Provider Obstetrics & Gynecology Gynecologic Oncology
DX: C54.1 Malignant neoplasm of endometrium (principal); Z79.01 Long term (current) use of anticoagulants
CPT/HCPCS: 36591; 80053; 85025; 85610; A4216

== ENCOUNTER → 2020-08-14 10:56 | Outpatient (CLI) | payer OTHER, SELFPAY ==
[2018-10-01 14:43] VITALS: BMI 29.9
[2020-08-14 12:59] LABS: International Normalized Ratio 1.6; Prothrombin Time (Protime)PT. 18.3 SECONDS (11.7-14.9)
== END ==
PROVIDERS: Referring Provider Obstetrics & Gynecology Gynecologic Oncology; Visit Provider Obstetrics & Gynecology Gynecologic Oncology
DX: C54.1 Malignant neoplasm of endometrium (principal)
CPT/HCPCS: 36415; 85610

== ENCOUNTER → 2020-08-26 14:38 | Outpatient (CLI) | payer OTHER, SELFPAY ==
[2018-10-01 14:43] VITALS: BMI 29.9
[2020-08-26] MEDS: 0.9 % NaCl (Sterile) Posiflush 10 mL IV (15:02)
[2020-08-26] MEDS: 0.9% NaCl VAD Flush IV (15:02)
[2020-08-26 15:20] LABS: Absolute Lymphocyte Count 2.25 X10^3/uL (0.83-4.51); Absolute Neutrophil Count 3.1 X10^3/uL (2.0-7.7); Basophil# 0.01 X10^3/uL; Basophil% 0.2 % (0-1); Eosinophil# 0.04 X10^3/uL; Eosinophils% 0.7 % (0-5); Hematocrit 28.7 % (37-47); Hemoglobin 7.7 g/dL (12.0-15.0); Lymphocyte # 2.25 X10^3/ul (4.0); Lymphocyte % 38.5 % (19-41); Mean Corp Hgb Conc 26.8 g/dL (32-36); Mean Corpuscular Hgb 16.7 pg (27.0-32.0); Mean Corpuscular Volume 62.4 fL (81-99); Monocyte# 0.45 X10^3/uL; Monocyte% 7.7 % (0-10); NRBC Flagged by Analyzer 0 % (0-5); Neutrophil # 3.08 X10^3/uL (2.7-7.7); Neutrophil % 52.6 % (47-70); POSITIVE MORPHOLOGY YES; Platelet Count 268 K/mm3 (150-450); RBC Distribution Width CV 20.9 % (11.6-14.6); White Blood Count 5.9 K/mm3 (4.4-11.0)
[2020-08-26 15:24] LABS: Differential Indicated SCAN CRITERIA MET
[2020-08-26 15:28] LABS: International Normalized Ratio 2.7; Prothrombin Time (Protime)PT. 28.1 SECONDS (11.7-14.9)
[2020-08-26 15:34] LABS: ALB/GLOB Ratio 1.1 RATIO (0.9-2.4); AST(SGOT) 11 U/L (15-37); Alanine Aminotransfer ALT/SGPT 19 U/L (13-56); Albumin, Serum 3.5 g/dL (3.2-5.0); Alkaline Phosphatase 84 U/L (45-117); Anion Gap 8 (5-15); BUN 6 mg/dL (7-18); BUN/Creat Ratio 7.9 RATIO (10-20); Calcium,Total 8.3 mg/dL (8.5-10.1); Chloride 109 mmol/L (98-107); Creatinine, Serum 0.76 mg/dL (0.55-1.02); EST Glomerular Filtration Rate 81 mL/min (>60); Est Glom Filt Rate - Afr Amer 98 mL/min (>60); Globulin 3.3 g/dL (2.2-4.2); Glucose 109 mg/dL (74-106); Potassium 2.8 mmol/L (3.5-5.1); Protein, Total 6.8 g/dL (6.4-8.2); Sodium Level 144 mmol/L (136-145)
[2020-08-26 16:23] LABS: Anisocytosis 1+; Microcytosis 3+; Platelet Estimate ADEQUATE (ADEQ)
[2020-08-26 16:24] LABS: Hypochromasia 3+; Ovalocyte 1+; Polychromasia RARE
== END ==
PROVIDERS: Family Medicine; Referring Provider Obstetrics & Gynecology Gynecologic Oncology; Visit Provider Obstetrics & Gynecology Gynecologic Oncology
DX: C54.1 Malignant neoplasm of endometrium (principal); Z79.01 Long term (current) use of anticoagulants
CPT/HCPCS: 36591; 80053; 85025; 85610; A4216

== ENCOUNTER → 2020-09-14 09:53 | Outpatient (CLI) | payer OTHER, SELFPAY ==
[2018-10-01 14:43] VITALS: BMI 29.9
[2020-09-14 10:57] LABS: International Normalized Ratio 1.4; Prothrombin Time (Protime)PT. 16.9 SECONDS (11.7-14.9)
== END ==
PROVIDERS: Referring Provider Family Medicine; Visit Provider Family Medicine
DX: Z79.01 Long term (current) use of anticoagulants (principal)
CPT/HCPCS: 36415; 85610

== ENCOUNTER → 2020-10-07 09:00 | Outpatient (CLI) | payer MEDICARE, OTHER, SELFPAY ==
[2018-10-01 14:43] VITALS: BMI 29.9
[2020-10-07] MEDS: 0.9 % NaCl (Sterile) Posiflush 10 mL IV (09:17)
[2020-10-07] MEDS: 0.9% NaCl VAD Flush IV (09:17)
[2020-10-07 09:33] LABS: Absolute Lymphocyte Count 1.62 X10^3/uL (0.83-4.51); Absolute Neutrophil Count 4.7 X10^3/uL (2.0-7.7); Basophil# 0.05 X10^3/uL; Basophil% 0.7 % (0-1); Eosinophil# 0.23 X10^3/uL; Eosinophils% 3.1 % (0-5); Hematocrit 35.9 % (37-47); Hemoglobin 9.9 g/dL (12.0-15.0); Lymphocyte # 1.62 X10^3/ul (4.0); Lymphocyte % 21.8 % (19-41); Mean Corp Hgb Conc 27.6 g/dL (32-36); Mean Corpuscular Hgb 18.5 pg (27.0-32.0); Mean Corpuscular Volume 67.2 fL (81-99); Monocyte# 0.79 X10^3/uL; Monocyte% 10.6 % (0-10); NRBC Flagged by Analyzer 0 % (0-5); Neutrophil # 4.72 X10^3/uL (2.7-7.7); Neutrophil % 63.5 % (47-70); POSITIVE COUNT YES; POSITIVE MORPHOLOGY YES; RBC Distribution Width CV 27.9 % (11.6-14.6); RBC Distribution Width SD 63.7 fl (35.1-43.9); Red Blood Count 5.34 M/mm3 (4.2-5.4); White Blood Count 7.4 K/mm3 (4.4-11.0)
[2020-10-07 09:34] LABS: Differential Indicated SCAN CRITERIA MET
[2020-10-07 09:47] LABS: International Normalized Ratio 1.3; Prothrombin Time (Protime)PT. 15.3 SECONDS (11.7-14.9)
[2020-10-07 09:48] LABS: ALB/GLOB Ratio 1.1 RATIO (0.9-2.4); AST(SGOT) 16 U/L (15-37); Alanine Aminotransfer ALT/SGPT 17 U/L (13-56); Albumin, Serum 3.7 g/dL (3.2-5.0); Alkaline Phosphatase 92 U/L (45-117); Anion Gap 7 (5-15); BUN 14 mg/dL (7-18); BUN/Creat Ratio 18.7 RATIO (10-20); Calcium,Total 8.8 mg/dL (8.5-10.1); Chloride 110 mmol/L (98-107); Creatinine, Serum 0.75 mg/dL (0.55-1.02); EST Glomerular Filtration Rate 83 mL/min (>60); Est Glom Filt Rate - Afr Amer 100 mL/min (>60); Globulin 3.3 g/dL (2.2-4.2); Glucose 114 mg/dL (74-106); Potassium 3.8 mmol/L (3.5-5.1); Sodium Level 141 mmol/L (136-145)
[2020-10-07 10:09] LABS: Anisocytosis 3+
[2020-10-07 10:10] LABS: Macrocytosis 1+; Microcytosis 1+
[2020-10-07 10:11] LABS: Platelet Estimate ADEQUATE (ADEQ)
== END ==
PROVIDERS: Referring Provider Obstetrics & Gynecology Gynecologic Oncology; Visit Provider Obstetrics & Gynecology Gynecologic Oncology
DX: C54.1 Malignant neoplasm of endometrium (principal); Z79.01 Long term (current) use of anticoagulants
CPT/HCPCS: 36415; 80053; 85025; 85610; 96523; A4216

== ENCOUNTER → 2020-11-18 10:14 | Outpatient (CLI) | payer MEDICARE, OTHER, SELFPAY ==
[2018-10-01 14:43] VITALS: BMI 29.9
[2020-11-18 10:55] LABS: Absolute Lymphocyte Count 2.01 X10^3/uL (0.83-4.51); Absolute Neutrophil Count 4.3 X10^3/uL (2.0-7.7); Basophil# 0.07 X10^3/uL; Basophil% 0.9 % (0-1); Eosinophil# 0.89 X10^3/uL; Eosinophils% 10.9 % (0-5); Hematocrit 35.4 % (37-47); Hemoglobin 10.2 g/dL (12.0-15.0); Lymphocyte # 2.01 X10^3/ul (4.0); Lymphocyte % 24.6 % (19-41); Mean Corp Hgb Conc 28.8 g/dL (32-36); Mean Corpuscular Hgb 20.2 pg (27.0-32.0); Mean Corpuscular Volume 70.2 fL (81-99); Mean Platelet Vol. 10.6 fl (6.2-12.0); Monocyte# 0.83 X10^3/uL; Monocyte% 10.1 % (0-10); NRBC Flagged by Analyzer 0 % (0-5); Neutrophil # 4.31 X10^3/uL (2.7-7.7); Neutrophil % 52.6 % (47-70); POSITIVE MORPHOLOGY YES; Platelet Count 325 K/mm3 (150-450); RBC Distribution Width CV 23.3 % (11.6-14.6); RBC Distribution Width SD 56.1 fl (35.1-43.9); Red Blood Count 5.04 M/mm3 (4.2-5.4); White Blood Count 8.2 K/mm3 (4.4-11.0)
[2020-11-18 10:56] LABS: Differential Indicated SCAN CRITERIA MET
[2020-11-18 11:02] LABS: International Normalized Ratio 2.6; Prothrombin Time (Protime)PT. 27.8 SECONDS (11.7-14.9)
[2020-11-18 11:11] LABS: Anisocytosis 1+
[2020-11-18 11:18] LABS: ALB/GLOB Ratio 0.9 RATIO (0.9-2.4); AST(SGOT) 13 U/L (15-37); Alanine Aminotransfer ALT/SGPT 18 U/L (13-56); Albumin, Serum 3.2 g/dL (3.2-5.0); Alkaline Phosphatase 89 U/L (45-117); Anion Gap 6 (5-15); BUN 10 mg/dL (7-18); BUN/Creat Ratio 13.2 RATIO (10-20); Calcium,Total 8.4 mg/dL (8.5-10.1); Chloride 105 mmol/L (98-107); Creatinine, Serum 0.76 mg/dL (0.55-1.02); EST Glomerular Filtration Rate 81 mL/min (>60); Est Glom Filt Rate - Afr Amer 98 mL/min (>60); Globulin 3.6 g/dL (2.2-4.2); Glucose 98 mg/dL (74-106); Potassium 3.5 mmol/L (3.5-5.1); Protein, Total 6.8 g/dL (6.4-8.2); Sodium Level 138 mmol/L (136-145)
[2020-11-18 18:44] LABS: Xtra Tube EP Lab EXTRA TUBE
== END ==
PROVIDERS: Referring Provider Obstetrics & Gynecology Gynecologic Oncology; Visit Provider Obstetrics & Gynecology Gynecologic Oncology
DX: C54.1 Malignant neoplasm of endometrium (principal); Z79.01 Long term (current) use of anticoagulants
CPT/HCPCS: 36591; 80053; 85025; 85610; A4216

== ENCOUNTER 2020-12-31 10:10 | Outpatient (CLI) | payer MEDICARE, SELFPAY ==
[2018-10-01 14:43] VITALS: BMI 29.9
[2020-12-31 11:02] LABS: Absolute Lymphocyte Count 2.47 X10^3/uL (0.83-4.51); Absolute Neutrophil Count 4.1 X10^3/uL (2.0-7.7); Basophil# 0.04 X10^3/uL; Basophil% 0.5 % (0-1); Eosinophil# 0.29 X10^3/uL; Eosinophils% 3.8 % (0-5); Hematocrit 35.9 % (37-47); Hemoglobin 10.2 g/dL (12.0-15.0); Lymphocyte # 2.47 X10^3/ul (4.0); Lymphocyte % 32.3 % (19-41); Mean Corp Hgb Conc 28.4 g/dL (32-36); Mean Corpuscular Hgb 19.7 pg (27.0-32.0); Mean Corpuscular Volume 69.2 fL (81-99); Mean Platelet Vol. 10.1 fl (6.2-12.0); Monocyte# 0.71 X10^3/uL; Monocyte% 9.3 % (0-10); NRBC Flagged by Analyzer 0 % (0-5); Neutrophil # 4.11 X10^3/uL (2.7-7.7); Neutrophil % 53.7 % (47-70); Platelet Count 347 K/mm3 (150-450); RBC Distribution Width CV 18.9 % (11.6-14.6); RBC Distribution Width SD 45.7 fl (35.1-43.9); Red Blood Count 5.19 M/mm3 (4.2-5.4); White Blood Count 7.7 K/mm3 (4.4-11.0)
[2020-12-31 11:10] LABS: International Normalized Ratio 2.1
[2020-12-31 11:23] LABS: ALB/GLOB Ratio 1.1 RATIO (0.9-2.4); AST(SGOT) 15 U/L (15-37); Alanine Aminotransfer ALT/SGPT 18 U/L (13-56); Albumin, Serum 3.8 g/dL (3.2-5.0); Alkaline Phosphatase 94 U/L (45-117); Anion Gap 7 (5-15); BUN 10 mg/dL (7-18); BUN/Creat Ratio 15.1 RATIO (10-20); Calcium,Total 8.9 mg/dL (8.5-10.1); Chloride 107 mmol/L (98-107); Creatinine, Serum 0.66 mg/dL (0.55-1.02); EST Glomerular Filtration Rate 95 mL/min (>60); Est Glom Filt Rate - Afr Amer 115 mL/min (>60); Globulin 3.5 g/dL (2.2-4.2); Glucose 105 mg/dL (74-106); Potassium 3.7 mmol/L (3.5-5.1); Protein, Total 7.3 g/dL (6.4-8.2); Sodium Level 141 mmol/L (136-145)
== END 2020-12-31 12:00 | disposition home or self-care (01) ==
LOC: MEDOUTP 10:14
PROVIDERS: Referring Provider Obstetrics & Gynecology Gynecologic Oncology; Visit Provider Obstetrics & Gynecology Gynecologic Oncology
DX: Z79.01 Long term (current) use of anticoagulants (principal)
CPT/HCPCS: 36591; 80053; 85025; 85610; A4216

== ENCOUNTER 2021-01-24 20:23 | Emergency (ER) | payer MEDICARE, SELFPAY ==
[2018-10-01 14:43] VITALS: BMI 29.9
[2021-01-24 20:24] VITALS: BP 143/86; PULSE 118; RESP 20; TEMP 37.2; O2SAT 95; BMI 34.5
--- NOTE | 2021-01-24 20:45 | CT_ITS ---
STUDY: CT ABDOMEN AND PELVIS WITH CONTRAST REASON FOR EXAM: Female, 65 years old.n/v with black emesis, on coumadin, hx uterine ca with current keytruta tx abdominal pain -- IV PO Contrast RADIATION DOSAGE (If Supplied By Facility): CTDIvol = ( 18.83 ) mGy, DLP = ( 1502.20 ) mGycm TECHNIQUE: Transaxial images were obtained from the dome of the diaphragm to the symphysis pubis with oral contrast. Oral and amp; IV Breeza Neutral and amp; 100mL Isovue-370 was administered. Sagittal and coronal images were reconstructed. Individualized dose optimization techniques were used for this CT. COMPARISON: None. FINDINGS: Large left Bochdalek hernia with the stomach and intra-abdominal mesenteric fat in the left hemithorax. The visualized lung bases are unremarkable. The visualized portions of the heart are within normal limits. Normal liver. Mild focally dilated biliary duct of the posterior aspect right lobe of liver. There is a solitary gallstone. Normal spleen. Normal pancreas. Normal bilateral adrenal glands. Normal right kidney. Normal left kidney. Normal visualized stomach. Normal small intestine. Prior right partial colonic resection suture material noted. Unremarkable remaining colonic loops.. The appendix is visualized and appears normal. There is minor atherosclerotic calcification of the abdominal aorta, without a demonstrated aneurysm. Normal inferior vena cava. Normal retroperitoneum. Normal urinary bladder. There is absence of the uterus consistent with a prior hysterectomy. Healed anterior abdominal wall surgical incision tract. No visualized hernia. Normal osseous structures. CT/Abdomen/Pelvis WITH Contrast IMPRESSION: 1. Large left Bochdalek hernia with the stomach and intra-abdominal mesenteric fat in the left hemithorax. 2. Small gallstone. Electronically Signed: Mayito Hickman MD at 23:46 EDT , Service support ,
[2021-01-24 22:00] LABS: Absolute Lymphocyte Count 2.41 X10^3/uL (0.83-4.51); Basophil# 0.03 X10^3/uL; Basophil% 0.3 % (0-1); Eosinophil# 0.19 X10^3/uL; Eosinophils% 1.6 % (0-5); Hematocrit 33.2 % (37-47); Hemoglobin 9.6 g/dL (12.0-15.0); Lymphocyte # 2.41 X10^3/ul (4.0); Lymphocyte % 20.9 % (19-41); Mean Corp Hgb Conc 28.9 g/dL (32-36); Mean Corpuscular Hgb 19.8 pg (27.0-32.0); Mean Corpuscular Volume 68.3 fL (81-99); Mean Platelet Vol. 10.7 fl (6.2-12.0); Monocyte# 0.88 X10^3/uL; Monocyte% 7.6 % (0-10); NRBC Flagged by Analyzer 0 % (0-5); Neutrophil # 7.97 X10^3/uL (2.7-7.7); Neutrophil % 69.3 % (47-70); Platelet Count 338 K/mm3 (150-450); RBC Distribution Width CV 18.6 % (11.6-14.6); RBC Distribution Width SD 43.4 fl (35.1-43.9); Red Blood Count 4.86 M/mm3 (4.2-5.4); White Blood Count 11.5 K/mm3 (4.4-11.0)
[2021-01-24] MEDS: Ondansetron 4 MG/2 ML Vial IV (22:01)
[2021-01-24 22:06] VITALS: BP 158/96; PULSE 79; RESP 20; TEMP 36.8; O2SAT 99
[2021-01-24 22:17] LABS: AST(SGOT) 9 U/L (15-37); Alanine Aminotransfer ALT/SGPT 16 U/L (13-56); Albumin, Serum 3.7 g/dL (3.2-5.0); Alkaline Phosphatase 87 U/L (45-117); Anion Gap 5 (5-15); BUN 8 mg/dL (7-18); BUN/Creat Ratio 11.3 RATIO (10-20); Chloride 106 mmol/L (98-107); EST Glomerular Filtration Rate 89 mL/min (>60); Est Glom Filt Rate - Afr Amer 107 mL/min (>60); Estimated Creatinine Clearance 60.46 ml/min; Globulin 3.6 g/dL (2.2-4.2); Glucose 116 mg/dL (74-106); Lipase 272 U/L (73-393); Potassium 3.3 mmol/L (3.5-5.1); Protein, Total 7.3 g/dL (6.4-8.2); Sodium Level 141 mmol/L (136-145)
[2021-01-24 22:33] LABS: International Normalized Ratio 2.5; Prothrombin Time (Protime)PT. 26.1 SECONDS (11.7-14.9)
[2021-01-24 22:34] LABS: Partial Thromboplast Time 30.2 Seconds (24.1-36.2)
[2021-01-24 22:55] LABS: Bacteria 0 SEEN /hpf (None Seen); Glucose, Dipstick Normal (Normal); Ketone-Dipstick Negative (Negative); Leukocyte Esterase-Dipstick 25 /ul (Negative); Mucous, Urine 0 SEEN /hpf (<or=2+); Nitrite-Dipstick Negative (Negative); Occult Blood-Urine Negative /ul (Negative); Protein-Dipstick Negative (Negative); Red Blood Cells-Urine 0 SEEN /hpf (0-5); Urine Bilirubin Dipstick Negative (Negative); Urine Urobilinogen Normal (Normal)
[2021-01-24 23:00] LABS: Color, Urine Yellow (Yellow)
[2021-01-24 23:01] LABS: Amorphous Sediment 1+ PHOS; Squamous Epithelial Cells - UA 0-5 SEEN /hpf (5-10); Urine Clarity Sl Cldy (Clear); White Blood Cells 0-5 SEEN /hpf (0-5)
[2021-01-25 00:02] VITALS: BP 160/92; PULSE 83; RESP 19; TEMP 36.8; O2SAT 98
--- NOTE | 2021-01-25 00:23 | ED.VISSUMM ---
- ER Visit Summary Date of Service: 01/25/21 Chief Complaint: Nausea and vomiting History of Present Illness: The patient is a 65 F presents with nausea and vomiting that began today. Patient states that she vomited up black liquid. Patient states that earlier today she did have some black licorice. Patient admits to some mild pain across her mid abdomen. Patient describes it as a pulling. Patient states it is intermittent. Patient states nothing makes her vomiting or pain better or worse. Patient denies any fevers or chills. Patient denies any dysuria or hematuria. Patient does have a history of uterine cancer and is on Keytruda. Patient is also on Coumadin. Patient denies any melena or hematochezia. Physical Examination: Vital signs are stable except for mild tachycardia of 118. Patient is afebrile. Patient is in no acute distress. Oral mucosa is pink and moist. Neck is supple. Trachea is midline. There is no JVD noted. Heart was regular and tachycardic. Lungs are clear and equal bilaterally. Abdomen is soft. Bowel sounds are normal. There is some mild tenderness over the mid abdomen. There is no rebound or guarding noted. Cranial nerves II through XII are intact. There are no focal motor or sensory deficits noted. Extremities are intact. There is no calf tenderness or edema. Test Results: CBC shows a mild leukocytosis of 11.5. Hemoglobin is 9.6 and hematocrit is 33.2. These were consistent with prior results. Comprehensive metabolic profile showed a mild hypokalemia of 3.3. INR is 2.5 and PTT is 30.2. Urinalysis does not show any evidence of urinary tract infection. CT scan of the abdomen and pelvis was obtained. There is no obstruction. There is a large Bochdalek hernia with the stomach and mesenteric fat in the thoracic cavity. This was interpreted by the radiologist and reviewed by myself. Emergency Department Course and Treatment: Patient was given IV fluids and Zofran here. Patient was feeling better on reevaluation. Patient was instructed to start with a liquid diet. Patient was instructed return if any coffee-ground emesis, hematemesis, melena, or hematochezia. Patient was instructed return if her pain is worse in any way. Patient was instructed to follow-up with her primary care physician in 5 to 7 days. Patient understood and was agreeable with the plan. All questions were answered. Disposition: Discharge home Impression: 1. Nausea and vomiting This note was generated with [employer] dictation software. It may contain incorrect words, spelling, and punctuation that were not noted in review of the chart prior to signing ED Disposition - Plan for ED Patient: Disposition: Home or Assisted Living Diagnosis: Nausea and vomiting in adult Instructions: ED Vomiting (Adult) Referrals: Kavya Law MD [Primary Care Provider] - 3-5 Days
[2021-01-25 00:29] VITALS: BP 151/75; PULSE 80; RESP 22; TEMP 36.9; O2SAT 97
== END 2021-01-25 00:35 | disposition home or self-care (01) ==
PROVIDERS: Emergency Provider Emergency Medicine; PCP Family Medicine
DX: R11.2 Nausea with vomiting, unspecified (principal); Z79.01 Long term (current) use of anticoagulants
CPT/HCPCS: 74177; 80053; 81001; 83690; 85025; 85610; 85730; 96374; 99283; J7030; Q9967; A4216; J2405

== ENCOUNTER 2021-02-10 15:07 | Outpatient (CLI) | payer MEDICARE, SELFPAY ==
[2021-02-10 15:46] LABS: Absolute Lymphocyte Count 2.88 X10^3/uL (0.83-4.51); Basophil# 0.04 X10^3/uL; Basophil% 0.4 % (0-1); Eosinophil# 0.18 X10^3/uL; Eosinophils% 1.8 % (0-5); Hematocrit 33.2 % (37-47); Hemoglobin 9.4 g/dL (12.0-15.0); Lymphocyte # 2.88 X10^3/ul (0.83-4.51); Lymphocyte % 29.5 % (19-41); Mean Corp Hgb Conc 28.3 g/dL (32-36); Mean Corpuscular Hgb 18.9 pg (27.0-32.0); Mean Corpuscular Volume 66.7 fL (81-99); Mean Platelet Vol. 10.3 fl (6.2-12.0); Monocyte# 0.63 X10^3/uL; Monocyte% 6.4 % (0-10); NRBC Flagged by Analyzer 0 % (0-5); Neutrophil # 6.01 X10^3/uL (2.7-7.7); Neutrophil % 61.6 % (47-70); Platelet Count 375 K/mm3 (150-450); RBC Distribution Width CV 18.9 % (11.6-14.6); RBC Distribution Width SD 43.7 fl (35.1-43.9); Red Blood Count 4.98 M/mm3 (4.2-5.4); White Blood Count 9.8 K/mm3 (4.4-11.0)
[2021-02-10 16:02] LABS: International Normalized Ratio 1.9; Prothrombin Time (Protime)PT. 21.5 SECONDS (11.7-14.9)
[2021-02-10 16:04] LABS: ALB/GLOB Ratio 1.1 RATIO (0.9-2.4); AST(SGOT) 7 U/L (15-37); Alanine Aminotransfer ALT/SGPT 15 U/L (13-56); Albumin, Serum 3.7 g/dL (3.2-5.0); Alkaline Phosphatase 80 U/L (45-117); Anion Gap 6 (5-15); BUN 13 mg/dL (7-18); BUN/Creat Ratio 12.4 RATIO (10-20); Calcium,Total 8.8 mg/dL (8.5-10.1); Chloride 109 mmol/L (98-107); Creatinine, Serum 1.05 mg/dL (0.55-1.02); EST Glomerular Filtration Rate 56 mL/min (>60); Est Glom Filt Rate - Afr Amer 68 mL/min (>60); Globulin 3.5 g/dL (2.2-4.2); Glucose 106 mg/dL (74-106); Potassium 3.5 mmol/L (3.5-5.1); Protein, Total 7.2 g/dL (6.4-8.2); Sodium Level 141 mmol/L (136-145)
[2021-02-10 23:43] LABS: Xtra Tube EP Lab EXTRA TUBE
== END 2021-02-10 17:00 | disposition home or self-care (01) ==
LOC: MEDOUTP 15:07
PROVIDERS: PCP Family Medicine; Referring Provider Obstetrics & Gynecology Gynecologic Oncology; Visit Provider Obstetrics & Gynecology Gynecologic Oncology
DX: Z79.01 Long term (current) use of anticoagulants (principal)
CPT/HCPCS: 36415; 80053; 85025; 85610; 96523; A4216

== ENCOUNTER 2021-02-21 21:03 | Emergency (ER) | payer MEDICARE, SELFPAY ==
[2021-02-21 21:04] VITALS: BP 101/67; PULSE 86; RESP 18; TEMP 36.6; O2SAT 95; BMI 34.0
[2021-02-21 21:24] LABS: Bacteria 0 SEEN /hpf (None Seen); Red Blood Cells-Urine 0 SEEN /hpf (0-5)
[2021-02-21 21:37] LABS: Color, Urine Yellow (Yellow); Glucose, Dipstick Normal (Normal); Ketone-Dipstick 5 mg/dl (Negative); Leukocyte Esterase-Dipstick 100 /ul (Negative); Nitrite-Dipstick Negative (Negative); Occult Blood-Urine Negative /ul (Negative); Protein-Dipstick 30 mg/dl (Negative); Urine Clarity Sl. Cloudy (Clear); Urine Urobilinogen 1 mg/dl (Normal)
[2021-02-21 21:38] LABS: Urine Bilirubin Dipstick 1 mg/dL (Negative)
[2021-02-21 21:41] LABS: Absolute Lymphocyte Count 1.85 X10^3/uL (0.83-4.51); Absolute Neutrophil Count 8.5 X10^3/uL (2.0-7.7); Basophil# 0.02 X10^3/uL; Basophil% 0.2 % (0-1); Eosinophil# 0.19 X10^3/uL; Eosinophils% 1.7 % (0-5); Hematocrit 35.5 % (37-47); Hemoglobin 9.9 g/dL (12.0-15.0); Lymphocyte # 1.85 X10^3/ul (0.83-4.51); Lymphocyte % 16.5 % (19-41); Mean Corp Hgb Conc 27.9 g/dL (32-36); Mean Corpuscular Hgb 18.6 pg (27.0-32.0); Mean Corpuscular Volume 66.6 fL (81-99); Mean Platelet Vol. 10.4 fl (6.2-12.0); Monocyte# 0.66 X10^3/uL; Monocyte% 5.9 % (0-10); NRBC Flagged by Analyzer 0 % (0-5); Neutrophil # 8.46 X10^3/uL (2.7-7.7); Neutrophil % 75.4 % (47-70); POSITIVE MORPHOLOGY YES; Platelet Count 344 K/mm3 (150-450); RBC Distribution Width CV 20.5 % (11.6-14.6); RBC Distribution Width SD 46.8 fl (35.1-43.9); Red Blood Count 5.33 M/mm3 (4.2-5.4); White Blood Count 11.2 K/mm3 (4.4-11.0)
[2021-02-21 21:44] LABS: Differential Indicated SCAN CRITERIA MET
[2021-02-21 21:46] LABS: White Blood Cells 10-25 SEEN /hpf (0-5)
[2021-02-21 21:47] LABS: Mucous, Urine 2+ /hpf (<or=2+); Squamous Epithelial Cells - UA 5-10 SEEN /hpf (5-10)
[2021-02-21 21:54] LABS: Anion Gap 7 (5-15); BUN 7 mg/dL (7-18); Calcium,Total 8.8 mg/dL (8.5-10.1); Chloride 110 mmol/L (98-107); EST Glomerular Filtration Rate 90 mL/min (>60); Est Glom Filt Rate - Afr Amer 108 mL/min (>60); Estimated Creatinine Clearance 60.46 ml/min; Glucose 120 mg/dL (74-106); Potassium 3.4 mmol/L (3.5-5.1); Sodium Level 140 mmol/L (136-145)
--- NOTE | 2021-02-21 22:01 | EX.ED.DYSGE1 ---
HPI History of Present Illness Chief Complaint: Abd Pain Narrative Narrative: Patient stated she has had abdominal pain for several days. It comes and goes. Is located in the lower abdomen. Denies any nausea vomiting or diarrhea. Had a colonoscopy last week which she stated was normal. History of remote uterine cancer status post hysterectomy. Patient stated she has no complaints currently. No fevers or chills. She denies any nausea or vomiting today. She did take an antacid earlier. Current severity is resolved. PFSH PFSH Medical History Anemia Depression Diabetes mellitus Gallstones GERD (gastroesophageal reflux disease) HTN (hypertension) Hypothyroid Paraesophageal hernia Renal calculi Uterine cancer Home Medications lansoprazole 30 mg PO DAILY PRN 01/24/21 [History Last Taken Unknown] lorazepam 0.5 mg PO Q6H PRN PRN 01/24/21 [History Last Taken Unknown] valsartan 80 mg PO DAILY 01/24/21 [History Last Taken Unknown] warfarin 2.5 mg PO DAILY 01/24/21 [History Last Taken Unknown] Allergy/AdvReac Type Severity Reaction Status Date / Time No Known Allergies Allergy Verified 02/21/21 21:07 Family History Father Diabetes Non-alcoholic cirrhosis Mother Breast cancer Dementia Surgical History History of dilation and curettage History of hysterectomy History of tonsillectomy and adenoidectomy Social History Smoking Status: Never smoker ROS ROS ED ROS Narrative ROS General: Denies fever, chills, sweats Eyes: Denies visual changes, blurred vision, double vision ENT: Denies ear pain, rhinorrhea, sore throat Cardiovascular: Denies chest pain, palpitations, heart racing Respiratory: Denies dyspnea, cough, sputum, dyspnea on exertion, orthopnea,PND GI: See HPI : Denies dysuria, hematuria, frequency Musculoskeletal: Denies myalgias, arthralgias, neck pain, back pain Skin: Denies rash, abscess, abrasions Neuro: Denies headache, weakness, paresthesia Psych: Denies depression, anxiety Endo: Denies polyuria, polydipsia, polyphagia Heme: Denies easy bruising, easy bleeding, lymphadenopathy Allergy: Denies hives, swelling EXAM Physical Exam Narrative Exam Narrative: Vital signs reviewed General: Well-nourished well-developed Head: Normocephalic atraumatic Eyes: Pupils equal round and reactive to light extraocular movements intact ENT: TMs clear no hemotympanum no trauma Neck: Nontender full range of motion Cardiovascular: Regular rate rhythm no murmurs normal S1-S2 Respiratory: No distress clear to auscultation bilaterally chest nontender Abdomen: Soft nontender nondistended normal bowel sounds no masses Back: Nontender no CVA tenderness Extremities: Nontender active range of motion ?4 extremities no trauma Skin: Normal color no trauma Neuro alert oriented cranial nerves II through XII intact normal strength sensation reflexes Const Vital Signs: 02/21/21 21:04 Temperature 97.9 F Temperature Source Temporal Pulse Rate 86 Respiratory Rate 18 Blood Pressure 101/67 Blood Pressure Mean 78 Pulse Ox 95 Oxygen Delivery Method Room Air MDM MDM MDM Narrative Medical decision making narrative: Patient does not have any symptoms currently. Lab work obtained upon arrival. Does not want a thing for pain currently. Lab work shows a very slight leukocytosis. Electrolytes showed no major abnormalities. Urinalysis shows 0 bacteria to suggest infection. Patient reports prior to discharge 1 dose of pain medicine just in case her symptoms come back. This appears to be a chronic symptoms. She has a benign abdomen at this time. I do not feel she needs further lab work or imaging. We will follow-up with her family doctor. Lab Data Labs: Laboratory Results - last 24 hr 02/21/21 02/21/21 02/21/21 21:20 21:30 21:30 WBC 11.2 H RBC 5.33 Hgb 9.9 L Hct 35.5 L MCV 66.6 L MCH 18.6 L MCHC 27.9 L RDW Std Deviation 46.8 H RDW Coeff of Tammie 20.5 H Plt Count 344 MPV 10.4 Immature Gran % (Auto) 0.300 Neut % (Auto) 75.4 H Lymph % (Auto) 16.5 L [place] % (Auto) 5.9 Eos % (Auto) 1.7 Baso % (Auto) 0.2 Absolute Neuts (auto) 8.5 H Absolute Lymphs (auto) 1.85 Nucleated RBC % 0 Differential Comment SCANNED Hypochromasia 2+ Poikilocytosis 1+ Anisocytosis 2+ Microcytosis 2+ Ovalocytes 1+ Sodium 140 Potassium 3.4 L Chloride 110 H Carbon Dioxide 23.0 Anion Gap 7 BUN 7 Creatinine 0.70 Estim Creat Clear Calc 60.46 Est GFR (MDRD) Af Amer 108 Est GFR (MDRD) Non-Af 90 BUN/Creatinine Ratio 10.0 Glucose 120 H Calcium 8.8 Urine Color Yellow Urine Clarity Sl. Cloudy Urine pH 5.0 Ur Specific [place] 1.020 Urine Protein 30 H Urine Glucose (UA) Normal Urine Ketones 5 H Urine Occult Blood Negative Urine Nitrite Negative Urine Bilirubin 1 H Urine Urobilinogen 1 H Ur Leukocyte Esterase 100 H Urine RBC 0 SEEN Urine WBC 10-25 SEEN Ur Squamous Epith Cells 5-10 SEEN Urine Bacteria 0 SEEN Urine Mucus 2+ Discharge Plan Triage Chief Complaint: Abd Pain ED Provider: Jamarcus Benavidez Dx/Rx/DC Orders Prescriptions: No Action warfarin 2.5 MG tablet 2.5 mg PO DAILY RF: 0 valsartan 80 MG tablet 80 mg PO DAILY RF: 0 lorazepam 0.5 MG tablet 0.5 mg PO Q6H PRN PRN (Reason: Anxiety) RF: 0 lansoprazole 30 MG capsule 30 mg PO DAILY PRN (Reason: gerd) RF: 0 Primary Care Provider: Kavya Law
[2021-02-21 22:02] LABS: Anisocytosis 2+; Differential Comment SCANNED; Hypochromasia 2+; Microcytosis 2+; Ovalocyte 1+; Poikilocytosis 1+
[2021-02-21 22:36] VITALS: BP 110/63; PULSE 65; RESP 18; O2SAT 100
[2021-02-21] MEDS: HYDROcodone Bitartrate/Apap 5/325 Tablet PO (22:36)
== END 2021-02-21 22:37 | disposition home or self-care (01) ==
PROVIDERS: Emergency Provider Emergency Medicine; PCP Family Medicine
DX: R10.9 Unspecified abdominal pain (principal)
CPT/HCPCS: 80048; 81001; 85025; 99284; A4216

== ENCOUNTER → 2021-03-24 12:11 | Outpatient (CLI) | payer MEDICARE, OTHER, SELFPAY ==
--- NOTE | 2021-03-24 12:42 | RAD_ITS ---
CLINICAL HISTORY: Female, 65 years old. Nonfunctional Mediport. PROCEDURE: Portogram. FLUOROSCOPY TIME (if supplied): (24 seconds) minutes/seconds. 17 spot views were obtained. STERILE BARRIER TECHNIQUE: The following sterile barrier precautions were used during the procedure: hand hygiene; use of 2% chlorhexidine aseptic; use of a cap, mask, sterile gown, sterile gloves, sterile full body drape, and a large sterile sheet. TECHNIQUE: 12 cc of ISOVUE 300 was injected for the examination. Port is patent. # of Images: 3 RAD/Fluoroscopy 1 Hr or Less IMPRESSION: Port is patent. Electronically Signed: Wade Lind MD at 13:19 EDT , Service support ,
--- NOTE | 2021-03-24 13:14 | NURSING ---
THIS RN CALLED DR GRAHAM'S OFFICE TO RELAY RESULTS OF PORTAGRAM, NO BLOOD RETURN, BUT PORT IS IN CORRECT PLACEMENT. PT STS SHE IS TO HAVE LABS DRAWN. DR GRAHAM'S OFFICE STAFF TO FAX ORDER.
[2021-03-24 13:50] LABS: Absolute Lymphocyte Count 2.75 X10^3/uL (0.83-4.51); Absolute Neutrophil Count 5.5 X10^3/uL (2.0-7.7); Basophil# 0.04 X10^3/uL; Basophil% 0.4 % (0-1); Eosinophils% 2.2 % (0-5); Hematocrit 33.9 % (37-47); Hemoglobin 9.5 g/dL (12.0-15.0); Lymphocyte # 2.75 X10^3/ul (0.83-4.51); Lymphocyte % 29.8 % (19-41); Mean Corpuscular Hgb 18.4 pg (27.0-32.0); Mean Corpuscular Volume 65.6 fL (81-99); Mean Platelet Vol. 10.4 fl (6.2-12.0); Monocyte% 7.6 % (0-10); NRBC Flagged by Analyzer 0 % (0-5); Neutrophil % 59.6 % (47-70); POSITIVE MORPHOLOGY YES; Platelet Count 374 K/mm3 (150-450); RBC Distribution Width CV 21.2 % (11.6-14.6); RBC Distribution Width SD 47.9 fl (35.1-43.9); Red Blood Count 5.17 M/mm3 (4.2-5.4); White Blood Count 9.2 K/mm3 (4.4-11.0)
[2021-03-24 14:03] LABS: International Normalized Ratio 1.5; Prothrombin Time (Protime)PT. 17.1 SECONDS (11.7-14.9)
[2021-03-24 14:09] LABS: Differential Indicated SCAN CRITERIA MET
[2021-03-24 14:15] LABS: ALB/GLOB Ratio 1.1 RATIO (0.9-2.4); AST(SGOT) 11 U/L (15-37); Alanine Aminotransfer ALT/SGPT 16 U/L (13-56); Albumin, Serum 3.9 g/dL (3.2-5.0); Alkaline Phosphatase 86 U/L (45-117); Anion Gap 7 (5-15); BUN 10 mg/dL (7-18); BUN/Creat Ratio 12.9 RATIO (10-20); Calcium,Total 9.3 mg/dL (8.5-10.1); Chloride 106 mmol/L (98-107); Creatinine, Serum 0.78 mg/dL (0.55-1.02); EST Glomerular Filtration Rate 79 mL/min (>60); Est Glom Filt Rate - Afr Amer 96 mL/min (>60); Globulin 3.6 g/dL (2.2-4.2); Glucose 111 mg/dL (74-106); Potassium 3.8 mmol/L (3.5-5.1); Protein, Total 7.5 g/dL (6.4-8.2); Sodium Level 139 mmol/L (136-145)
[2021-03-24 14:22] LABS: Differential Comment SCANNED
[2021-03-24 14:23] LABS: Anisocytosis 1+; Hypochromasia 2+; Microcytosis 2+; Ovalocyte 1+
[2021-03-25 13:03] LABS: Pathologist Review Reviewed
== END ==
PROVIDERS: PCP Family Medicine; Referring Provider Obstetrics & Gynecology Gynecologic Oncology; Visit Provider Obstetrics & Gynecology Gynecologic Oncology
DX: I87.8 Other specified disorders of veins (principal)
CPT/HCPCS: 36415; 76000; 80053; 85025; 85610; Q9965

== ENCOUNTER 2021-04-15 14:27 | Emergency (ER) | payer MEDICARE, SELFPAY ==
[2021-04-15 14:28] VITALS: BP 157/85; PULSE 69; RESP 15; TEMP 36.8; O2SAT 97; BMI 30.2
--- NOTE | 2021-04-15 15:34 | EX.ED.DYSGE1 ---
HPI History of Present Illness Chief Complaint: Other, Pain/Inj Onset/Context/Timing Context: Gradual Onset Timing: Continuous Quality: Dull Location: Mid abdomen Worsened by: Bending Relieved by: Nothing Narrative Narrative: Patient presents with possible dehydration. Patient states that she has noticed her skin has been dry and wrinkling recently. Patient states she has had a lot of nausea and vomiting recently. Patient states that she knows she has an umbilical hernia that needs to be repaired. Patient admits to some intermittent pain in this area. Patient describes it as dull. Patient states it only comes on when she bends forward. Patient also states she is having some increased thirst. Patient feels weak at times. Patient states she called her oncologist who told her to come to the emergency department for IV fluids. [facility] Medical History (Updated 04/15/21 @ 16:[address] Tony Gann DO) Anemia Depression Diabetes mellitus Gallstones GERD (gastroesophageal reflux disease) HTN (hypertension) Hypothyroid Paraesophageal hernia Renal calculi Uterine cancer Home Medications lansoprazole 30 mg PO DAILY PRN 01/24/21 [History Last Taken Unknown] lorazepam 0.5 mg PO Q6H PRN PRN 01/24/21 [History Last Taken Unknown] valsartan 80 mg PO DAILY 01/24/21 [History Last Taken Unknown] warfarin 2.5 mg PO DAILY 01/24/21 [History Last Taken Unknown] oxycodone-acetaminophen [Percocet] 1 tab PO Q8H PRN 3 Days #10 tab 02/21/21 [Rx Last Taken Unknown] ondansetron 4 mg PO Q8H PRN PRN #10 tab 04/15/21 [Rx Last Taken Unknown] Allergy/AdvReac Type Severity Reaction Status Date / Time No Known Allergies Allergy Verified 04/15/21 14:31 Family History Father Diabetes Non-alcoholic cirrhosis Mother Breast cancer Dementia Surgical History History of dilation and curettage History of hysterectomy History of tonsillectomy and adenoidectomy Social History Smoking Status: Never smoker ROS ROS ED Constitutional Constitutional ED: Denies chills or fever(s) Eyes Eyes: Denies blurry vision or change in vision ENT ENT ED: Denies rhinorrhea or sore throat Cardiovascular Cardiovascular: Denies chest pain or palpitations Respiratory/Chest Respiratory/Chest: Denies cough or dyspnea Gastrointestinal Gastrointestinal: Reports nausea and vomiting Genitourinary Genitourinary ED: Denies dysuria or hematuria Musculoskeletal Musculoskeletal: Denies back pain or neck pain Integumentary Denies abscess or rash Neurologic Neurologic: Reports weakness; Denies headache(s) Allergic/Immunologic Allergic/Immunologic ED: Denies mouth swelling or urticaria EXAM Physical Exam Const Vital Signs: 04/15/21 14:28 04/15/21 14:53 Temperature 98.3 F Temperature Source Temporal Pulse Rate 69 Respiratory Rate 15 Respiratory Effort Normal Respiratory Pattern Normal Blood Pressure 157/85 H Blood Pressure Mean 109 Pulse Ox 97 Oxygen Delivery Method Room Air Positive well nourished and well developed General Appearance ED: well developed HEENT Reports moist mucous membranes Neck supple and no JVD Resp normal respiratory effort and clear to auscultation bilaterally Cardio regular rate, regular rhythm and no murmurs GI normal to inspection, nondistended, normoactive bowel sounds and non-tender Palpation: soft Extremity normal to inspection General Extremety ED: Negative for edema or tenderness General Extremity: Negative for edema Neuro oriented x3, CN's II-XII intact bilaterally and no sensory deficits noted Sensorium / Orientation: alert Motor Exam: strength 5/5 throughout Psych mental status grossly normal Skin no rashes or lesions noted MDM MDM MDM Narrative Medical decision making narrative: Patient was given IV fluids. CBC and comprehensive metabolic profile were within normal limits except for a potassium of 3.0. Urinalysis does not show any evidence of urinary tract infection. Patient was given a dose of oral potassium here. Patient was given a prescription for Zofran. Patient was instructed to drink plenty of fluids. Patient was instructed to follow-up with her primary care physician in 3 to 5 days. Patient understood and was agreeable with the plan. All questions were answered. Lab Data Attestation: I reviewed the patient's lab results. Labs: Laboratory Results - last 24 hr 04/15/21 04/15/21 04/15/21 15:55 15:55 16:12 WBC 10.3 RBC 5.07 Hgb 9.4 L Hct 33.4 L MCV 65.9 L MCH 18.5 L MCHC 28.1 L RDW Std Deviation 47.6 H RDW Coeff of Tammie 21.2 H Plt Count 311 MPV 10.8 Immature Gran % (Auto) 0.400 Neut % (Auto) 60.3 Lymph % (Auto) 28.7 [place] % (Auto) 8.4 Eos % (Auto) 1.7 Baso % (Auto) 0.5 Absolute Neuts (auto) 6.2 Absolute Lymphs (auto) 2.95 Nucleated RBC % 0 Platelet Estimate ADEQUATE RBC Morphology N CHROM Hypochromasia 1+ Anisocytosis 2+ Microcytosis 1+ Ovalocytes RARE Sodium 142 Potassium 3.0 L Chloride 108 H Carbon Dioxide 29.0 Anion Gap 5 BUN 6 L Creatinine 0.76 Estim Creat Clear Calc 55.69 Est GFR (MDRD) Af Amer 98 Est GFR (MDRD) Non-Af 81 BUN/Creatinine Ratio 7.9 L Glucose 89 Calcium 8.6 Total Bilirubin 0.30 AST 12 L ALT 18 Alkaline Phosphatase 88 Total Protein 7.0 Albumin 3.8 Globulin 3.2 Albumin/Globulin Ratio 1.2 Urine Color Yellow Urine Clarity Clear Urine pH 7.0 Ur Specific [place] 1.010 Urine Protein Negative Urine Glucose (UA) Normal Urine Ketones Negative Urine Occult Blood Negative Urine Nitrite Negative Urine Bilirubin Negative Urine Urobilinogen Normal Ur Leukocyte Esterase 100 H Urine RBC 0 SEEN Urine WBC 0-5 SEEN Ur Squamous Epith Cells 0-5 SEEN Urine Bacteria 0 SEEN Urine Mucus 0 SEEN Discharge Plan Triage Chief Complaint: Other, Pain/Inj ED Provider: Tony Gann Dx/Rx/DC Orders Clinical Impression: Nausea and vomiting, Hypokalemia Instructions: ED Hypokalemia, ED Vomiting and Diarrhea ... Prescriptions: New ondansetron [ondansetron] 4 MG tablet 4 mg PO Q8H PRN PRN (Reason: Nausea) Qty: 10 RF: 0 No Action warfarin 2.5 MG tablet 2.5 mg PO DAILY RF: 0 valsartan 80 MG tablet 80 mg PO DAILY RF: 0 lorazepam 0.5 MG tablet 0.5 mg PO Q6H PRN PRN (Reason: Anxiety) RF: 0 lansoprazole 30 MG capsule 30 mg PO DAILY PRN (Reason: gerd) RF: 0 oxycodone-acetaminophen [Percocet] 5-325 mg tablet 1 tab PO Q8H PRN (Reason: pain) 3 Days Qty: 10 RF: 0 Primary Care Provider: Gagandeep Charles Referrals: Gagandeep Charles MD [Primary Care Provider] - 5-7 Days Disposition Disposition: Home, Self Care
[2021-04-15 16:06] LABS: Absolute Lymphocyte Count 2.95 X10^3/uL (0.83-4.51); Absolute Neutrophil Count 6.2 X10^3/uL (2.0-7.7); Basophil# 0.05 X10^3/uL; Basophil% 0.5 % (0-1); Eosinophil# 0.17 X10^3/uL; Eosinophils% 1.7 % (0-5); Hematocrit 33.4 % (37-47); Hemoglobin 9.4 g/dL (12.0-15.0); Lymphocyte # 2.95 X10^3/ul (0.83-4.51); Lymphocyte % 28.7 % (19-41); Mean Corp Hgb Conc 28.1 g/dL (32-36); Mean Corpuscular Hgb 18.5 pg (27.0-32.0); Mean Corpuscular Volume 65.9 fL (81-99); Mean Platelet Vol. 10.8 fl (6.2-12.0); Monocyte# 0.86 X10^3/uL; Monocyte% 8.4 % (0-10); NRBC Flagged by Analyzer 0 % (0-5); Neutrophil % 60.3 % (47-70); POSITIVE MORPHOLOGY YES; Platelet Count 311 K/mm3 (150-450); RBC Distribution Width CV 21.2 % (11.6-14.6); RBC Distribution Width SD 47.6 fl (35.1-43.9); Red Blood Count 5.07 M/mm3 (4.2-5.4); White Blood Count 10.3 K/mm3 (4.4-11.0)
[2021-04-15] MEDS: 0.9% Normal Saline 1,000 ML 1000 ML IV (16:08)
[2021-04-15 16:11] LABS: Differential Indicated SCAN CRITERIA MET
[2021-04-15 16:20] LABS: ALB/GLOB Ratio 1.2 RATIO (0.9-2.4); AST(SGOT) 12 U/L (15-37); Alanine Aminotransfer ALT/SGPT 18 U/L (13-56); Albumin, Serum 3.8 g/dL (3.2-5.0); Alkaline Phosphatase 88 U/L (45-117); Anion Gap 5 (5-15); BUN 6 mg/dL (7-18); BUN/Creat Ratio 7.9 RATIO (10-20); Calcium,Total 8.6 mg/dL (8.5-10.1); Chloride 108 mmol/L (98-107); Creatinine, Serum 0.76 mg/dL (0.55-1.02); EST Glomerular Filtration Rate 81 mL/min (>60); Est Glom Filt Rate - Afr Amer 98 mL/min (>60); Estimated Creatinine Clearance 55.69 ml/min; Globulin 3.2 g/dL (2.2-4.2); Glucose 89 mg/dL (74-106); Sodium Level 142 mmol/L (136-145)
[2021-04-15 16:21] LABS: Bacteria 0 SEEN /hpf (None Seen); Mucous, Urine 0 SEEN /hpf (<or=2+); Red Blood Cells-Urine 0 SEEN /hpf (0-5)
[2021-04-15 16:25] LABS: Color, Urine Yellow (Yellow); Glucose, Dipstick Normal (Normal); Ketone-Dipstick Negative (Negative); Leukocyte Esterase-Dipstick 100 /ul (Negative); Nitrite-Dipstick Negative (Negative); Occult Blood-Urine Negative /ul (Negative); Protein-Dipstick Negative (Negative); Urine Bilirubin Dipstick Negative (Negative); Urine Clarity Clear (Clear); Urine Urobilinogen Normal (Normal)
[2021-04-15 16:36] LABS: Squamous Epithelial Cells - UA 0-5 SEEN /hpf (5-10); White Blood Cells 0-5 SEEN /hpf (0-5)
[2021-04-15 16:48] LABS: Platelet Estimate ADEQUATE (ADEQ)
[2021-04-15 16:49] LABS: Anisocytosis 2+; Hypochromasia 1+; Microcytosis 1+; Ovalocyte RARE; Red Cell Morphology N CHROM NORMAL (NORM C&C)
[2021-04-15] MEDS: Potassium Chloride Oral Tablet 20 MEQ 40 MEQ PO (17:30)
[2021-04-15 17:33] VITALS: BP 160/88; PULSE 62; RESP 15; O2SAT 99
[2021-04-16 10:17] LABS: Pathologist Review Reviewed
== END 2021-04-15 17:40 | disposition home or self-care (01) ==
PROVIDERS: Emergency Provider Emergency Medicine; PCP Obstetrics & Gynecology Gynecologic Oncology
DX: R11.2 Nausea with vomiting, unspecified (principal); E87.6 Hypokalemia
CPT/HCPCS: 80053; 81001; 85025; 99283; J7030; A4216

== ENCOUNTER → 2021-05-19 11:09 | Outpatient (CLI) | payer MEDICARE, SELFPAY ==
[2021-05-19 11:41] LABS: Absolute Lymphocyte Count 2.08 X10^3/uL (0.83-4.51); Absolute Neutrophil Count 3.6 X10^3/uL (2.0-7.7); Basophil# 0.05 X10^3/uL; Basophil% 0.7 % (0-1); Eosinophil# 0.45 X10^3/uL; Eosinophils% 6.6 % (0-5); Hematocrit 31.1 % (37-47); Hemoglobin 8.9 g/dL (12.0-15.0); Lymphocyte # 2.08 X10^3/ul (0.83-4.51); Lymphocyte % 30.7 % (19-41); Mean Corp Hgb Conc 28.6 g/dL (32-36); Mean Corpuscular Hgb 18.8 pg (27.0-32.0); Mean Corpuscular Volume 65.6 fL (81-99); Mean Platelet Vol. 10.4 fl (6.2-12.0); Monocyte# 0.57 X10^3/uL; Monocyte% 8.4 % (0-10); NRBC Flagged by Analyzer 0 % (0-5); Neutrophil % 53.3 % (47-70); POSITIVE MORPHOLOGY YES; Platelet Count 397 K/mm3 (150-450); RBC Distribution Width CV 21.4 % (11.6-14.6); RBC Distribution Width SD 48.4 fl (35.1-43.9); Red Blood Count 4.74 M/mm3 (4.2-5.4); White Blood Count 6.8 K/mm3 (4.4-11.0)
[2021-05-19 11:42] LABS: Differential Indicated SCAN CRITERIA MET
[2021-05-19 11:53] LABS: International Normalized Ratio 2.9; Prothrombin Time (Protime)PT. 29.5 SECONDS (11.7-14.9)
[2021-05-19 11:55] LABS: ALB/GLOB Ratio 1.1 RATIO (0.9-2.4); AST(SGOT) 10 U/L (15-37); Alanine Aminotransfer ALT/SGPT 20 U/L (13-56); Albumin, Serum 3.7 g/dL (3.2-5.0); Alkaline Phosphatase 83 U/L (45-117); Anion Gap 8 (5-15); BUN 8 mg/dL (7-18); BUN/Creat Ratio 11.7 RATIO (10-20); Calcium,Total 8.7 mg/dL (8.5-10.1); Chloride 110 mmol/L (98-107); Creatinine, Serum 0.68 mg/dL (0.55-1.02); EST Glomerular Filtration Rate 92 mL/min (>60); Est Glom Filt Rate - Afr Amer 111 mL/min (>60); Globulin 3.5 g/dL (2.2-4.2); Glucose 105 mg/dL (74-106); Potassium 3.4 mmol/L (3.5-5.1); Protein, Total 7.2 g/dL (6.4-8.2); Sodium Level 143 mmol/L (136-145)
[2021-05-19 12:02] LABS: Anisocytosis 1+; Hypochromasia 1+
== END ==
PROVIDERS: PCP Obstetrics & Gynecology Gynecologic Oncology; Referring Provider Obstetrics & Gynecology Gynecologic Oncology; Visit Provider Obstetrics & Gynecology Gynecologic Oncology
DX: Z79.01 Long term (current) use of anticoagulants (principal)
CPT/HCPCS: 36415; 80053; 85025; 85610

== ENCOUNTER 2021-06-30 10:27 | Outpatient (RCR) | payer MEDICARE, SELFPAY ==
[2021-06-30 11:15] LABS: Absolute Lymphocyte Count 2.16 X10^3/uL (0.83-4.51); Absolute Neutrophil Count 6.1 X10^3/uL (2.0-7.7); Basophil# 0.03 X10^3/uL; Basophil% 0.3 % (0-1); Eosinophil# 0.35 X10^3/uL; Eosinophils% 3.7 % (0-5); Hematocrit 34.1 % (37-47); Hemoglobin 9.6 g/dL (12.0-15.0); Lymphocyte # 2.16 X10^3/ul (0.83-4.51); Lymphocyte % 22.7 % (19-41); Mean Corp Hgb Conc 28.2 g/dL (32-36); Mean Corpuscular Hgb 18.4 pg (27.0-32.0); Mean Corpuscular Volume 65.2 fL (81-99); Monocyte# 0.88 X10^3/uL; Monocyte% 9.2 % (0-10); NRBC Flagged by Analyzer 0 % (0-5); Neutrophil # 6.07 X10^3/uL (2.7-7.7); Neutrophil % 63.8 % (47-70); POSITIVE MORPHOLOGY YES; Platelet Count 345 K/mm3 (150-450); RBC Distribution Width CV 21.8 % (11.6-14.6); RBC Distribution Width SD 47.8 fl (35.1-43.9); Red Blood Count 5.23 M/mm3 (4.2-5.4); White Blood Count 9.5 K/mm3 (4.4-11.0)
[2021-06-30 11:16] LABS: Differential Indicated SCAN CRITERIA MET
[2021-06-30 11:21] LABS: International Normalized Ratio 1.8; Prothrombin Time (Protime)PT. 19.9 SECONDS (11.7-14.9)
[2021-06-30 11:33] LABS: AST(SGOT) 15 U/L (15-37); Alanine Aminotransfer ALT/SGPT 23 U/L (13-56); Albumin, Serum 3.8 g/dL (3.2-5.0); Alkaline Phosphatase 97 U/L (45-117); Anion Gap 5 (5-15); Anisocytosis 1+; BUN 9 mg/dL (7-18); BUN/Creat Ratio 13.5 RATIO (10-20); Calcium,Total 8.9 mg/dL (8.5-10.1); Chloride 109 mmol/L (98-107); Creatinine, Serum 0.67 mg/dL (0.55-1.02); EST Glomerular Filtration Rate 94 mL/min (>60); Est Glom Filt Rate - Afr Amer 114 mL/min (>60); Globulin 3.8 g/dL (2.2-4.2); Glucose 124 mg/dL (74-106); Potassium 3.7 mmol/L (3.5-5.1); Protein, Total 7.6 g/dL (6.4-8.2); Sodium Level 140 mmol/L (136-145)
[2021-07-01 14:20] LABS: Thyroid Stim Hormone (TSH) 0.59 uIU/mL (0.358-3.74)
== END 2021-07-22 23:59 ==
LOC: PAVLAB 10:27
PROVIDERS: PCP Obstetrics & Gynecology Gynecologic Oncology; Referring Provider Family Medicine; Visit Provider Family Medicine
DX: K55.069 Acute infarction of intestine, part and extent unspecified (principal); Z79.01 Long term (current) use of anticoagulants; Z79.899 Other long term (current) drug therapy
CPT/HCPCS: 36415; 80053; 84443; 85025; 85610

== ENCOUNTER 2021-08-18 09:38 | Outpatient (RCR) | payer MEDICARE, SELFPAY ==
[2021-08-18 10:05] LABS: Absolute Lymphocyte Count 2.65 X10^3/uL (0.83-4.51); Absolute Neutrophil Count 3.9 X10^3/uL (2.0-7.7); Basophil# 0.03 X10^3/uL; Basophil% 0.4 % (0-1); Eosinophil# 0.32 X10^3/uL; Eosinophils% 4.2 % (0-5); Hematocrit 32.6 % (37-47); Lymphocyte # 2.65 X10^3/ul (0.83-4.51); Lymphocyte % 35.1 % (19-41); Mean Corp Hgb Conc 27.6 g/dL (32-36); Mean Corpuscular Hgb 18.4 pg (27.0-32.0); Mean Corpuscular Volume 66.8 fL (81-99); NRBC Flagged by Analyzer 0 % (0-5); Neutrophil # 3.92 X10^3/uL (2.7-7.7); POSITIVE MORPHOLOGY YES; Platelet Count 304 K/mm3 (150-450); RBC Distribution Width CV 20.2 % (11.6-14.6); RBC Distribution Width SD 47.1 fl (35.1-43.9); Red Blood Count 4.88 M/mm3 (4.2-5.4); White Blood Count 7.5 K/mm3 (4.4-11.0)
[2021-08-18 10:18] LABS: International Normalized Ratio 2.9; Prothrombin Time (Protime)PT. 29.7 SECONDS (11.7-14.9)
[2021-08-18 10:36] LABS: ALB/GLOB Ratio 1.1 RATIO (0.9-2.4); AST(SGOT) 12 U/L (15-37); Alanine Aminotransfer ALT/SGPT 15 U/L (13-56); Albumin, Serum 3.6 g/dL (3.2-5.0); Alkaline Phosphatase 76 U/L (45-117); Anion Gap 6 (5-15); BUN 8 mg/dL (7-18); BUN/Creat Ratio 13.1 RATIO (10-20); Calcium,Total 8.4 mg/dL (8.5-10.1); Chloride 111 mmol/L (98-107); Creatinine, Serum 0.61 mg/dL (0.55-1.02); EST Glomerular Filtration Rate 104 mL/min (>60); Est Glom Filt Rate - Afr Amer 126 mL/min (>60); Globulin 3.4 g/dL (2.2-4.2); Glucose 105 mg/dL (74-106); Potassium 3.3 mmol/L (3.5-5.1); Sodium Level 143 mmol/L (136-145); Thyroid Stim Hormone (TSH) 0.63 uIU/mL (0.358-3.74)
[2021-08-18 10:37] LABS: Differential Indicated SCAN CRITERIA MET
[2021-08-18 10:45] LABS: Anisocytosis 1+
[2021-08-18 17:58] LABS: Xtra Tube EP Lab EXTRA TUBE
== END 2021-08-22 23:59 ==
LOC: PAVLAB 09:38
PROVIDERS: PCP Obstetrics & Gynecology Gynecologic Oncology; Referring Provider Family Medicine; Visit Provider Family Medicine
DX: K55.069 Acute infarction of intestine, part and extent unspecified (principal); Z79.01 Long term (current) use of anticoagulants; Z79.899 Other long term (current) drug therapy
CPT/HCPCS: 36415; 80053; 84443; 85025; 85610

== ENCOUNTER 2021-09-29 11:22 | Outpatient (RCR) | payer MEDICARE, SELFPAY ==
[2021-09-29 11:40] LABS: Absolute Lymphocyte Count 1.49 X10^3/uL (0.83-4.51); Absolute Neutrophil Count 3.1 X10^3/uL (2.0-7.7); Basophil# 0.04 X10^3/uL; Basophil% 0.7 % (0-1); Eosinophils% 3.4 % (0-5); Lymphocyte # 1.49 X10^3/ul (0.83-4.51); Lymphocyte % 25.6 % (19-41); Mean Corp Hgb Conc 28.6 g/dL (32-36); Mean Corpuscular Hgb 18.6 pg (27.0-32.0); Mean Corpuscular Volume 65.2 fL (81-99); Mean Platelet Vol. 10.6 fl (6.2-12.0); Monocyte# 0.96 X10^3/uL; Monocyte% 16.5 % (0-10); NRBC Flagged by Analyzer 0 % (0-5); Neutrophil # 3.11 X10^3/uL (2.7-7.7); Neutrophil % 53.5 % (47-70); POSITIVE MORPHOLOGY YES; Platelet Count 283 K/mm3 (150-450); RBC Distribution Width CV 20.7 % (11.6-14.6); RBC Distribution Width SD 45.2 fl (35.1-43.9); Red Blood Count 5.37 M/mm3 (4.2-5.4); White Blood Count 5.8 K/mm3 (4.4-11.0)
[2021-09-29 11:42] LABS: Differential Indicated SCAN CRITERIA MET
[2021-09-29 12:18] LABS: AST(SGOT) 20 U/L (15-37); Alanine Aminotransfer ALT/SGPT 25 U/L (13-56); Albumin, Serum 3.7 g/dL (3.2-5.0); Alkaline Phosphatase 88 U/L (45-117); Anion Gap 9 (5-15); BUN 9 mg/dL (7-18); BUN/Creat Ratio 11.8 RATIO (10-20); Calcium,Total 9.1 mg/dL (8.5-10.1); Chloride 106 mmol/L (98-107); Creatinine, Serum 0.76 mg/dL (0.55-1.02); EST Glomerular Filtration Rate 81 mL/min (>60); Est Glom Filt Rate - Afr Amer 98 mL/min (>60); Globulin 3.8 g/dL (2.2-4.2); Glucose 125 mg/dL (74-106); Potassium 3.5 mmol/L (3.5-5.1); Protein, Total 7.5 g/dL (6.4-8.2); Sodium Level 140 mmol/L (136-145); Thyroid Stim Hormone (TSH) 0.27 uIU/mL (0.358-3.74)
[2021-09-29 13:06] LABS: Anisocytosis 2+; Differential Comment SCANNED; Macrocytosis 1+; Microcytosis 1+
== END 2021-10-22 23:59 ==
LOC: PAVLAB 11:22
PROVIDERS: PCP Obstetrics & Gynecology Gynecologic Oncology; Referring Provider Family Medicine; Visit Provider Family Medicine
DX: K55.069 Acute infarction of intestine, part and extent unspecified (principal); Z79.01 Long term (current) use of anticoagulants; Z79.899 Other long term (current) drug therapy; C54.1 Malignant neoplasm of endometrium
CPT/HCPCS: 36415; 80053; 84443; 85025

== ENCOUNTER 2021-10-26 12:21 | Outpatient (CLI) | payer MEDICARE, SELFPAY ==
[2021-10-26 13:08] LABS: Anion Gap 9 (5-15); BUN 7 mg/dL (7-18); Calcium,Total 8.9 mg/dL (8.5-10.1); Chloride 108 mmol/L (98-107); EST Glomerular Filtration Rate 89 mL/min (>60); Est Glom Filt Rate - Afr Amer 108 mL/min (>60); Glucose 108 mg/dL (74-106); Potassium 3.7 mmol/L (3.5-5.1); Sodium Level 142 mmol/L (136-145)
== END 2021-10-26 23:59 | disposition short-term general hospital (02) ==
LOC: PAVLAB 12:23
PROVIDERS: PCP Obstetrics & Gynecology Gynecologic Oncology; Referring Provider Obstetrics & Gynecology Gynecologic Oncology; Visit Provider Obstetrics & Gynecology Gynecologic Oncology
DX: C54.1 Malignant neoplasm of endometrium (principal)
CPT/HCPCS: 36415; 80048

== ENCOUNTER 2021-11-10 09:52 | Outpatient (RCR) | payer MEDICARE, SELFPAY ==
[2021-11-10 10:22] LABS: Absolute Lymphocyte Count 2.18 X10^3/uL (0.83-4.51); Absolute Neutrophil Count 3.3 X10^3/uL (2.0-7.7); Basophil# 0.04 X10^3/uL; Basophil% 0.6 % (0-1); Eosinophil# 0.42 X10^3/uL; Eosinophils% 6.4 % (0-5); Hematocrit 32.3 % (37-47); Hemoglobin 9.1 g/dL (12.0-15.0); Lymphocyte # 2.18 X10^3/ul (0.83-4.51); Lymphocyte % 33.3 % (19-41); Mean Corp Hgb Conc 28.2 g/dL (32-36); Mean Corpuscular Hgb 18.4 pg (27.0-32.0); Mean Corpuscular Volume 65.3 fL (81-99); Mean Platelet Vol. 10.2 fl (6.2-12.0); Monocyte# 0.59 X10^3/uL; NRBC Flagged by Analyzer 0 % (0-5); Neutrophil # 3.28 X10^3/uL (2.7-7.7); Neutrophil % 50.2 % (47-70); POSITIVE MORPHOLOGY YES; Platelet Count 351 K/mm3 (150-450); RBC Distribution Width CV 20.2 % (11.6-14.6); RBC Distribution Width SD 45.1 fl (35.1-43.9); Red Blood Count 4.95 M/mm3 (4.2-5.4); White Blood Count 6.5 K/mm3 (4.4-11.0)
[2021-11-10 10:24] LABS: Differential Indicated SCAN CRITERIA MET
[2021-11-10 10:30] LABS: International Normalized Ratio 1.9; Prothrombin Time (Protime)PT. 20.9 SECONDS (11.7-14.9)
[2021-11-10 10:42] LABS: AST(SGOT) 9 U/L (15-37); Alanine Aminotransfer ALT/SGPT 18 U/L (13-56); Albumin, Serum 3.6 g/dL (3.2-5.0); Alkaline Phosphatase 75 U/L (45-117); Anion Gap 8 (5-15); BUN 11 mg/dL (7-18); BUN/Creat Ratio 15.6 RATIO (10-20); Calcium,Total 8.8 mg/dL (8.5-10.1); Chloride 108 mmol/L (98-107); EST Glomerular Filtration Rate 88 mL/min (>60); Est Glom Filt Rate - Afr Amer 107 mL/min (>60); Globulin 3.6 g/dL (2.2-4.2); Glucose 110 mg/dL (74-106); Potassium 3.7 mmol/L (3.5-5.1); Protein, Total 7.2 g/dL (6.4-8.2); Sodium Level 141 mmol/L (136-145)
[2021-11-10 10:45] LABS: Differential Comment SCANNED
[2021-11-10 10:46] LABS: Anisocytosis 2+; Hypochromasia 1+; Microcytosis 2+
== END 2021-11-22 23:59 ==
LOC: PAVLAB 09:52
PROVIDERS: PCP Obstetrics & Gynecology Gynecologic Oncology; Referring Provider Family Medicine; Visit Provider Family Medicine
DX: C54.1 Malignant neoplasm of endometrium (principal); K55.069 Acute infarction of intestine, part and extent unspecified; Z79.899 Other long term (current) drug therapy
CPT/HCPCS: 36415; 80053; 85025; 85610

== ENCOUNTER 2021-12-22 10:38 | Outpatient (RCR) | payer MEDICARE, SELFPAY ==
[2021-12-22 11:07] LABS: Absolute Lymphocyte Count 2.47 X10^3/uL (0.83-4.51); Absolute Neutrophil Count 4.4 X10^3/uL (2.0-7.7); Basophil# 0.04 X10^3/uL; Basophil% 0.5 % (0-1); Eosinophil# 0.35 X10^3/uL; Eosinophils% 4.4 % (0-5); Hematocrit 32.5 % (37-47); Hemoglobin 9.5 g/dL (12.0-15.0); Lymphocyte # 2.47 X10^3/ul (0.83-4.51); Lymphocyte % 30.8 % (19-41); Mean Corp Hgb Conc 29.2 g/dL (32-36); Mean Platelet Vol. 10.1 fl (6.2-12.0); Monocyte# 0.73 X10^3/uL; Monocyte% 9.1 % (0-10); NRBC Flagged by Analyzer 0 % (0-5); Neutrophil % 54.8 % (47-70); POSITIVE MORPHOLOGY YES; Platelet Count 390 K/mm3 (150-450); RBC Distribution Width CV 20.6 % (11.6-14.6); RBC Distribution Width SD 45.9 fl (35.1-43.9)
[2021-12-22 11:15] LABS: International Normalized Ratio 1.8; Prothrombin Time (Protime)PT. 20.2 SECONDS (11.7-14.9)
[2021-12-22 11:28] LABS: Differential Indicated SCAN CRITERIA MET
[2021-12-22 11:31] LABS: AST(SGOT) 10 U/L (15-37); Alanine Aminotransfer ALT/SGPT 17 U/L (13-56); Albumin, Serum 3.7 g/dL (3.2-5.0); Alkaline Phosphatase 75 U/L (45-117); Anion Gap 8 (5-15); BUN 11 mg/dL (7-18); BUN/Creat Ratio 15.4 RATIO (10-20); Calcium,Total 8.7 mg/dL (8.5-10.1); Chloride 107 mmol/L (98-107); Creatinine, Serum 0.72 mg/dL (0.55-1.02); EST Glomerular Filtration Rate 87 mL/min (>60); Est Glom Filt Rate - Afr Amer 105 mL/min (>60); Globulin 3.8 g/dL (2.2-4.2); Glucose 113 mg/dL (74-106); Potassium 3.9 mmol/L (3.5-5.1); Protein, Total 7.5 g/dL (6.4-8.2); Sodium Level 139 mmol/L (136-145); Thyroid Stim Hormone (TSH) 0.53 uIU/mL (0.358-3.74)
[2021-12-22 11:35] LABS: Anisocytosis 1+
[2021-12-22 11:37] LABS: Ovalocyte RARE
== END 2022-01-20 23:59 | disposition home or self-care (01) ==
LOC: PAVLAB 10:38
PROVIDERS: PCP Obstetrics & Gynecology Gynecologic Oncology; Referring Provider Family Medicine; Visit Provider Family Medicine
DX: C54.1 Malignant neoplasm of endometrium (principal); K55.069 Acute infarction of intestine, part and extent unspecified; Z79.899 Other long term (current) drug therapy
CPT/HCPCS: 36415; 80053; 84443; 85025; 85610

== ENCOUNTER 2022-01-26 14:35 | Outpatient (CLI) | payer MEDICARE, SELFPAY ==
[2022-01-26 15:06] LABS: Color, Urine Yellow (Yellow); Glucose, Dipstick Normal (Normal); Ketone-Dipstick Negative (Negative); Leukocyte Esterase-Dipstick 500 /ul (Negative); Nitrite-Dipstick Negative (Negative); Occult Blood-Urine 25 /ul (Negative); Protein-Dipstick 15 mg/dl (Negative); Urine Bilirubin Dipstick Negative (Negative); Urine Clarity Clear (Clear); Urine Urobilinogen Normal (Normal); Urine pH 6.5 (5.0 - 8.0)
== END 2022-01-26 23:59 | disposition home or self-care (01) ==
PROVIDERS: PCP Obstetrics & Gynecology Gynecologic Oncology; Visit Provider Nurse Practitioner Gerontology
DX: R35.0 Frequency of micturition (principal)
CPT/HCPCS: 81002; 87086; 87088

== ENCOUNTER 2022-02-09 11:13 | Outpatient (RCR) | payer MEDICARE, SELFPAY ==
[2022-02-09 11:32] LABS: Absolute Lymphocyte Count 2.19 X10^3/uL (0.83-4.51); Absolute Neutrophil Count 3.5 X10^3/uL (2.0-7.7); Basophil# 0.03 X10^3/uL; Basophil% 0.5 % (0-1); Eosinophil# 0.23 X10^3/uL; Eosinophils% 3.5 % (0-5); Hematocrit 31.7 % (37-47); Hemoglobin 9.1 g/dL (12.0-15.0); Lymphocyte # 2.19 X10^3/ul (0.83-4.51); Lymphocyte % 33.1 % (19-41); Mean Corp Hgb Conc 28.7 g/dL (32-36); Mean Platelet Vol. 10.9 fl (6.2-12.0); Monocyte# 0.61 X10^3/uL; Monocyte% 9.2 % (0-10); NRBC Flagged by Analyzer 0 % (0-5); Neutrophil # 3.52 X10^3/uL (2.7-7.7); Neutrophil % 53.2 % (47-70); Platelet Count 312 K/mm3 (150-450); RBC Distribution Width SD 45.9 fl (35.1-43.9); White Blood Count 6.6 K/mm3 (4.4-11.0)
[2022-02-09 11:40] LABS: International Normalized Ratio 2.8; Prothrombin Time (Protime)PT. 29.4 SECONDS (11.7-14.9)
[2022-02-09 12:04] LABS: AST(SGOT) 10 U/L (15-37); Alanine Aminotransfer ALT/SGPT 20 U/L (13-56); Albumin, Serum 3.3 g/dL (3.2-5.0); Alkaline Phosphatase 66 U/L (45-117); Anion Gap 4 (5-15); BUN 6 mg/dL (7-18); Calcium,Total 8.7 mg/dL (8.5-10.1); Chloride 109 mmol/L (98-107); Creatinine, Serum 0.66 mg/dL (0.55-1.02); EST Glomerular Filtration Rate 94 mL/min (>60); Est Glom Filt Rate - Afr Amer 114 mL/min (>60); Globulin 3.4 g/dL (2.2-4.2); Glucose 115 mg/dL (74-106); Potassium 2.9 mmol/L (3.5-5.1); Protein, Total 6.7 g/dL (6.4-8.2); Sodium Level 143 mmol/L (136-145); Thyroid Stim Hormone (TSH) 0.34 uIU/mL (0.358-3.74)
== END 2022-02-19 23:59 ==
LOC: PAVLAB 11:13
PROVIDERS: PCP Obstetrics & Gynecology Gynecologic Oncology; Referring Provider Family Medicine; Visit Provider Family Medicine
DX: C54.1 Malignant neoplasm of endometrium (principal); K55.069 Acute infarction of intestine, part and extent unspecified; Z79.899 Other long term (current) drug therapy
CPT/HCPCS: 36415; 80053; 84443; 85025; 85610

== ENCOUNTER 2022-04-06 07:39 | Observation (INO) | payer MEDICARE, SELFPAY ==
[2022-04-06] VITALS (11 sets, daily range): BP systolic 142–198; BP diastolic 49–86; PULSE 68–85; RESP 16–24; TEMP 36.6–37.2; O2SAT 96–100; BMI 32.1
--- NOTE | 2022-04-06 08:04 | CT_ITS ---
STUDY: CT ABDOMEN AND PELVIS WITHOUT CONTRAST REASON FOR EXAM: Female, 66 years old. Epigastric pain. HISTORY OF ENDOMETRIAL CANCER, DB RADIATION DOSAGE (If Supplied By Facility): CTDIvol = ( 15.20 ) mGy, DLP = ( 782.28 ) mGycm TECHNIQUE: Transaxial images were obtained from the dome of the diaphragm to the symphysis pubis without oral contrast, and without intravenous contrast. Sagittal and coronal images were reconstructed. Individualized dose optimization techniques were used for this CT. COMPARISON: Comparison is made with prior study dated 01/24/2021. FINDINGS: The visualized lung bases are unremarkable. Once again, stable left [place] hernia with stomach and intra-abdominal mesenteric fat in the left hemithorax. The visualized portions of the heart are within normal limits. Normal liver. Mildly distended gallbladder. An 8 mm gallstone is seen in the region of The gallbladder. Correlation with ultrasound is recommended. Normal spleen. Normal pancreas. Normal bilateral adrenal glands. There is a 7.5 mm calculus in the posterior lower pole calyx of the right kidney. Normal left kidney. There is evidence of a prior surgery at the gastroesophageal junction with a residual small hiatal hernia. Normal small intestine. Surgical anastomosis is seen in the region of the hepatic flexure. Possible right hemicolectomy. There is non-visualization of the appendix. There is scattered atherosclerotic calcification of the abdominal aorta, without a demonstrated aneurysm. Normal inferior vena cava. Normal retroperitoneum. Normal urinary bladder. Normal abdominal wall. Disc space narrowing at the L5-S1 level. CT/Abdomen/Pelvis without Cont IMPRESSION: Solitary gallstone in the neck of the gallbladder with mild distention of the gallbladder lumen. Correlation with ultrasound is recommended. Findings suggestive of a prior right hemicolectomy. Nonobstructive, considering the posterior lower pole calyx of the right kidney. Electronically Signed: Wade Lind MD at 10:02 EDT ,
--- NOTE | 2022-04-06 08:06 | EKG12_ITS ---
Test Reason : ABD PAIN Blood Pressure : / mmHG Vent. Rate : 066 BPM Atrial Rate : 066 BPM P-R Int : 152 ms QRS Dur : 078 ms QT Int : 412 ms P-R-T Axes : 015 -01 016 degrees QTc Int : 431 ms Normal sinus rhythm Low voltage QRS Borderline ECG Confirmed by VIANIA BLANDON, RAYMUNDO ([id number]), health editor PATEL DUMONT ([id number]) on 04/08/2022 9:07:48 AM Referred By: DILCIA Confirmed By:RAYMUNDO REDD MD
--- NOTE | 2022-04-06 08:07 | EDS_ITS ---
HPI History of Present Illness Chief Complaint: General Illness Informant: patient Onset/Context/Timing Onset: Yesterday Context: Gradual Onset Timing: Continuous Quality: weak Location: all over Current Severity: Severe Maximum Severity: Severe Worsened by: nothing Relieved by: nothing Associated Symptoms Associated Symptoms: periumbilical abd pain, nausea, diarrhea, chills, anorexia Narrative Narrative: Patient very poor historian saying that she does not feel well. Initially she states this started yesterday at 6 PM, but after further questioning, nothing started suddenly. She has had a poor appetite, abdominal discomfort, multiple episodes of loose diarrhea that she did not look at, not knowing if she has had any blood or melena. She states she is on warfarin but she does not know why. She does not have a history of A. fib, she does have a history of endometrial cancer that she has had IV infusions for, for the past 5 years at [facility]. She denies a known history of blood clots but my father did. She felt some chills but she denies any known fevers or checking for that. [facility] Medical History (Updated 04/06/22 @ 13:[address] Xander Hunter MD) Anemia Depression Diabetes mellitus Gallstones GERD (gastroesophageal reflux disease) HTN (hypertension) Hypothyroid Paraesophageal hernia Renal calculi Uterine cancer Home Medications lansoprazole 30 mg capsule,delayed release 30 mg PO DAILY PRN gerd 01/24/21 [History Last Taken Unknown] lorazepam 0.5 mg tablet 0.5 mg PO Q8H PRN PRN Anxiety 01/24/21 [History Last Taken Unknown] valsartan 80 mg tablet 80 mg PO DAILY 01/24/21 [History Last Taken Unknown] warfarin 2.5 mg tablet 2.5 mg PO DAILY 01/24/21 [History Last Taken Unknown] oxycodone-acetaminophen 5 mg-325 mg tablet (Percocet) 1 tab PO Q8H PRN pain 3 days #10 tabs 02/21/21 [Rx Last Taken Unknown] ondansetron 4 mg disintegrating tablet 4 mg PO Q8H PRN PRN Nausea #10 tabs 04/15/21 [Rx Last Taken Unknown] Allergy/AdvReac Type Severity Reaction Status Date / Time No Known Allergies Allergy Verified 04/06/22 08:18 Family History Father Diabetes Non-alcoholic cirrhosis Mother Breast cancer Dementia Surgical History History of dilation and curettage History of hysterectomy History of tonsillectomy and adenoidectomy Social History Smoking Status: Never smoker ROS ROS ED Constitutional Constitutional ED: Reports chills and weakness; Denies fever(s) Eyes Eyes: Denies change in vision or diplopia ENT ENT ED: Denies rhinorrhea or sore throat Cardiovascular Cardiovascular: Denies chest pain or palpitations Respiratory/Chest Respiratory/Chest: Denies cough or dyspnea Gastrointestinal Gastrointestinal: Reports abdominal pain, diarrhea and nausea; Denies vomiting Genitourinary Genitourinary ED: Denies dysuria or hematuria Musculoskeletal Musculoskeletal: Denies back pain or neck pain Integumentary Denies abscess or rash Neurologic Neurologic: Reports other Details: tipsy -- weak all over; denies vertigo or lightheadedness ; Denies headache(s), paresthesias or weakness Psychiatric Psychiatric: Denies anxiety or suicidal thoughts EXAM Physical Exam Const Vital Signs: 04/06/22 07:39 04/06/22 07:52 04/06/22 10:40 Temperature 97.8 F 97.9 F Temperature Source Temporal Oral Pulse Rate 69 68 81 Respiratory Rate 18 24 H 18 Blood Pressure 183/86 H 198/81 H 142/49 H Blood Pressure Mean 118 120 80 Pulse Ox 99 99 Oxygen Delivery Method Room Air Room Air 04/06/22 11:18 Temperature Temperature Source Pulse Rate 84 Respiratory Rate 18 Blood Pressure 154/72 H Blood Pressure Mean 99 Pulse Ox 96 Oxygen Delivery Method Room Air Positive well nourished, well developed and obese General Appearance ED: well developed and NAD Nutritional Appearance: obese HEENT Reports moist mucous membranes normocephalic and atraumatic Eyes PERRL and EOMs intact bilaterally Neck full ROM and supple Resp normal respiratory effort and clear to auscultation bilaterally Cardio regular rate, regular rhythm and no murmurs GI non-distended GI Narrative: Tender epigastrium, right upper quadrant, periumbilical and infraumbilical areas mildly. No guarding or rebound. No other areas of tenderness. Auscultation: normoactive bowel sounds Palpation: soft Rectal Exam: visual inspection normal, normal sphincter tone and other Other Details: Scattered bits of nonbloody nonmelanotic diarrhea Back/Spine no CVA tenderness General Back: other FROM Extremity normal to inspection General Extremety ED: Negative for edema, pulses abnormal or tenderness General Extremity: Negative for edema or pulses abnormal Neuro oriented x3, CN's II-XII intact bilaterally and no sensory deficits noted Sensorium / Orientation: awake and alert Motor Exam: strength 5/5 throughout Skin no rashes or lesions noted and no wounds MDM MDM MDM Narrative Medical decision making narrative: Patient very nauseated and her blood pressure very high, she is very poor historian presenting with vague symptoms. She is tender in her upper abdomen but not severely so. She is a leukocytosis, she just had her CT images and she appears to have a gallstone in the neck of her gallbladder so I ordered an ultrasound, she is getting IV fluids, antiemetics, and hydralazine because her pressure is very elevated. Her liver enzymes and lipase are within normal limits. Her INR is subtherapeutic at 1.2 but again I am not sure why she needs it. Ultrasound shows the solitary gallstone that appears to be stuck in the neck of the gallbladder along with a distended gallbladder, but no other objective signs of acute cholecystitis. On reexamination after morphine she is feeling much better, and she is mildly tender in the right upper quadrant without Conroy sign at this time. I discussed this case with Dr. Wray with surgery who evaluated her in the emergency department. Initially patient was amenable to surgery but wanted to go to [facility] where her surgical oncologist practices. However, [facility] has no available beds and is not able to except her for any reason right now. Discussed again with the patient she was amenable to staying here for care. Zosyn started in ED. Patient is clinically and hemodynamically stable. Lab Data Attestation: I reviewed the patient's lab results. Labs: Laboratory Results - last 24 hr 04/06/22 04/06/22 04/06/22 08:15 08:20 08:20 WBC 16.2 H RBC 5.08 Hgb 9.8 L Hct 33.8 L MCV 66.5 L MCH 19.3 L MCHC 29.0 L RDW Std Deviation 48.1 H RDW Coeff of Tammie 21.2 H Plt Count 309 Immature Gran % (Auto) 2.700 H Neut % (Auto) 85.7 H Lymph % (Auto) 7.3 L [place] % (Auto) 3.9 Eos % (Auto) 0.1 Baso % (Auto) 0.3 Absolute Neuts (auto) 13.9 H Absolute Lymphs (auto) 1.19 Nucleated RBC % 0 Platelet Estimate ADEQUATE RBC Morphology N CHROM Anisocytosis 1+ PT 14.9 INR 1.2 Sodium Potassium Chloride Carbon Dioxide Anion Gap BUN Creatinine Estim Creat Clear Calc Est GFR (MDRD) Af Amer Est GFR (MDRD) Non-Af BUN/Creatinine Ratio Glucose Calcium Total Bilirubin AST ALT Alkaline Phosphatase Troponin I High Sens Total Protein Albumin Globulin Albumin/Globulin Ratio Lipase Urine Color Yellow Urine Clarity Clear Urine pH 7.0 Ur Specific [place] 1.010 Urine Protein 15 H Urine Glucose (UA) 100 H Urine Ketones 5 H Urine Occult Blood Negative Urine Nitrite Negative Urine Bilirubin Negative Urine Urobilinogen Normal Ur Leukocyte Esterase Negative Urine RBC 0 SEEN Urine WBC 0-5 SEEN Ur Squamous Epith Cells 0-5 SEEN Urine Bacteria RARE Urine Mucus 1+ 04/06/22 08:20 WBC RBC Hgb Hct MCV MCH MCHC RDW Std Deviation RDW Coeff of Tammie Plt Count Immature Gran % (Auto) Neut % (Auto) Lymph % (Auto) [place] % (Auto) Eos % (Auto) Baso % (Auto) Absolute Neuts (auto) Absolute Lymphs (auto) Nucleated RBC % Platelet Estimate RBC Morphology Anisocytosis PT INR Sodium 140 Potassium 3.3 L Chloride 108 H Carbon Dioxide 24.0 Anion Gap 8 BUN 6 L Creatinine 0.75 Estim Creat Clear Calc 41.76 Est GFR (MDRD) Af Amer 99 Est GFR (MDRD) Non-Af 82 BUN/Creatinine Ratio 8.0 L Glucose 174 H Calcium 8.9 Total Bilirubin 0.30 AST 16 ALT 23 Alkaline Phosphatase 79 Troponin I High Sens 6 Total Protein 7.4 Albumin 3.8 Globulin 3.6 Albumin/Globulin Ratio 1.1 Lipase 180 Urine Color Urine Clarity Urine pH Ur Specific [place] Urine Protein Urine Glucose (UA) Urine Ketones Urine Occult Blood Urine Nitrite Urine Bilirubin Urine Urobilinogen Ur Leukocyte Esterase Urine RBC Urine WBC Ur Squamous Epith Cells Urine Bacteria Urine Mucus Radiography Diagnostic Testing: Clinical Impression(s) from Imaging Studies Abdomen/Pelvis CT 04/06/22 08:04 IMPRESSION: Solitary gallstone in the neck of the gallbladder with mild distention of the gallbladder lumen. Correlation with ultrasound is recommended. Findings suggestive of a prior right hemicolectomy. Nonobstructive, considering the posterior lower pole calyx of the right kidney. Electronically Signed: Wade Lind MD at 10:02 EDT , Chest X-Ray 04/06/22 09:40 IMPRESSION: No acute abnormality is seen. Electronically Signed: Wade Lind MD at 10:04 EDT , Gallbladder Ultrasound 04/06/22 09:59 IMPRESSION: Solitary gallstone in the neck of the gallbladder with distention of the gallbladder. Small right renal cyst and nonobstructive right intrarenal calculus. Fatty infiltration of the liver. Electronically Signed: Wade Lind MD at 11:33 EDT , Rhythm Strip Rhythm Strip: Sinus Rhythm Rate: 65 Ectopy: None EKG Initial EKG: Attestation: I personally reviewed and interpreted this EKG as follows: Interpretation: Sinus Rhythm and No Acute Injury Pattern Prior EKG tracings: available for review Prior: Unchanged Discharge Plan Dx/Rx/DC Orders Clinical Impression: Acute calculous cholecystitis Disposition Disposition: Acute Care Hospital [facility]
[2022-04-06 08:19] LABS: Red Blood Cells-Urine 0 SEEN /hpf (0-5)
[2022-04-06] MEDS: 0.9% Normal Saline 1,000 ML 250 ML IV (08:19)
[2022-04-06 08:20] LABS: Color, Urine Yellow (Yellow); Glucose, Dipstick 100 mg/dl (Normal); Ketone-Dipstick 5 mg/dl (Negative); Leukocyte Esterase-Dipstick Negative /ul (Negative); Nitrite-Dipstick Negative (Negative); Occult Blood-Urine Negative /ul (Negative); Protein-Dipstick 15 mg/dl (Negative); Urine Bilirubin Dipstick Negative (Negative); Urine Clarity Clear (Clear); Urine Urobilinogen Normal (Normal)
[2022-04-06 08:26] LABS: Bacteria RARE /hpf (None Seen); Mucous, Urine 1+ /hpf (<or=2+); Squamous Epithelial Cells - UA 0-5 SEEN /hpf (5-10); White Blood Cells 0-5 SEEN /hpf (0-5)
[2022-04-06] MEDS: Ondansetron 4 MG/2 ML Vial IV (08:28)
[2022-04-06] MEDS: hydrALAZINE 20 MG/ML Vial IV (08:28)
[2022-04-06 08:36] LABS: Absolute Lymphocyte Count 1.19 X10^3/uL (0.83-4.51); Absolute Neutrophil Count 13.9 X10^3/uL (2.0-7.7); Basophil# 0.05 X10^3/uL; Basophil% 0.3 % (0-1); Eosinophil# 0.01 X10^3/uL; Eosinophils% 0.1 % (0-5); Hematocrit 33.8 % (37-47); Hemoglobin 9.8 g/dL (12.0-15.0); Lymphocyte # 1.19 X10^3/ul (0.83-4.51); Lymphocyte % 7.3 % (19-41); Mean Corpuscular Hgb 19.3 pg (27.0-32.0); Mean Corpuscular Volume 66.5 fL (81-99); Monocyte# 0.64 X10^3/uL; Monocyte% 3.9 % (0-10); NRBC Flagged by Analyzer 0 % (0-5); Neutrophil # 13.91 X10^3/uL (2.7-7.7); Neutrophil % 85.7 % (47-70); POSITIVE MORPHOLOGY YES; Platelet Count 309 K/mm3 (150-450); RBC Distribution Width CV 21.2 % (11.6-14.6); RBC Distribution Width SD 48.1 fl (35.1-43.9); Red Blood Count 5.08 M/mm3 (4.2-5.4); White Blood Count 16.2 K/mm3 (4.4-11.0)
[2022-04-06 08:40] LABS: Differential Indicated SCAN CRITERIA MET
[2022-04-06 08:41] LABS: International Normalized Ratio 1.2; Prothrombin Time (Protime)PT. 14.9 SECONDS (11.7-14.9)
[2022-04-06 09:11] LABS: Anisocytosis 1+; Platelet Estimate ADEQUATE (ADEQ); Red Cell Morphology N CHROM NORMAL (NORM C&C)
[2022-04-06] MEDS: Metoclopramide 10 MG/2 ML Vial 5 MG IV (09:25)
[2022-04-06 09:26] LABS: ALB/GLOB Ratio 1.1 RATIO (0.9-2.4); AST(SGOT) 16 U/L (15-37); Alanine Aminotransfer ALT/SGPT 23 U/L (13-56); Albumin, Serum 3.8 g/dL (3.2-5.0); Alkaline Phosphatase 79 U/L (45-117); Anion Gap 8 (5-15); BUN 6 mg/dL (7-18); Calcium,Total 8.9 mg/dL (8.5-10.1); Chloride 108 mmol/L (98-107); Creatinine, Serum 0.75 mg/dL (0.55-1.02); EST Glomerular Filtration Rate 82 mL/min (>60); Est Glom Filt Rate - Afr Amer 99 mL/min (>60); Estimated Creatinine Clearance 41.76 ml/min; Globulin 3.6 g/dL (2.2-4.2); Glucose 174 mg/dL (74-106); Lipase 180 U/L (73-393); Potassium 3.3 mmol/L (3.5-5.1); Protein, Total 7.4 g/dL (6.4-8.2); Sodium Level 140 mmol/L (136-145); Troponin-I HS 6 pg/mL (3.0-54.0)
--- NOTE | 2022-04-06 09:40 | RAD_ITS ---
STUDY: X-RAY CHEST REASON FOR EXAM: Female, 66 years old. Weakness TECHNIQUE: Single AP portable view of the chest. COMPARISON: None. FINDINGS: The lungs are clear and expanded. Scattered calcified granulomas. There is no demonstrated pleural abnormality. Normal size heart. Normal mediastinum and steven. Normal visualized pulmonary arteries. There is atherosclerotic tortuosity of the aortic arch and descending thoracic aorta. There are diffuse degenerative changes of the visualized thoracic spine. Normal visualized ribs, clavicles, and shoulders. There is no demonstrated abnormality of the visualized soft tissue structures of the upper abdomen. RAD/Chest 1 View (Portable) IMPRESSION: No acute abnormality is seen. Electronically Signed: Wade Lind MD at 10:04 EDT ,
--- NOTE | 2022-04-06 09:59 | US_ITS ---
STUDY: ABDOMINAL ULTRASOUND - RIGHT UPPER QUADRANT REASON FOR VISIT: Female, 66 years old . Right upper quadrant pain with nausea and vomiting. TECHNIQUE: Ultrasound evaluation of the right upper quadrant was performed with real-time and static felix-scale imaging. TECHNICAL QUALITY: Adequate. COMPARISON: Comparison is made with prior CT scan of the abdomen and pelvis done earlier in the day. FINDINGS: Liver: The liver is mildly enlarged and measures 18.7 cm. There is increased echogenicity consistent with fatty infiltration. The bile ducts are within normal limits. There is hepatic color flow. The direction of portal flow is hepatopetal. There is no demonstrated mass lesion. Gallbladder: The gallbladder is distended. The gallbladder wall measures 2 mm. There is a positive sonographic Conroy''s sign. There is no pericholecystic fluid. There is a solitary echogenic gallstone within the neck of the gallbladder. Common Bile Duct (C.B.D.): The common bile duct measures 4 mm. Pancreas: Normal size of the head, body and tail of the pancreas. There is normal echogenicity of the pancreas. There is no demonstrated pancreatic mass or cyst. Right Kidney: Normal size of the right kidney. The right kidney measures 11.5 cm x 4.5 cm x 5.5 cm. Normal renal cortex. The right cortex measures 1.7 cm. There is an 8 mm x 7 mm x 6 mm right renal cyst. There is also evidence of a nonobstructive intrarenal calculus measuring 5 mm. There is no right hydronephrosis. US/Gallbladder IMPRESSION: Solitary gallstone in the neck of the gallbladder with distention of the gallbladder. Small right renal cyst and nonobstructive right intrarenal calculus. Fatty infiltration of the liver. Electronically Signed: Wade Lind MD at 11:33 EDT ,
--- NOTE | 2022-04-06 10:48 | ED.RN ---
morphine obtained and drawn up however pt was already in ultrasound, will medicate when pt is back from ultrasound. will keep morphine on my person, charge nurse ELIANA Lerma is aware.
[2022-04-06] MEDS: Morphine 4 MG/ML Syringe IV ×3 (11:13→16:54)
--- NOTE | 2022-04-06 14:21 | PCM.CONS.GEN ---
Assessment & Plan Assessment/Plan (1) Acute calculous cholecystitis: PLAN: Plan #Acute cholecystitis has gallstone stuck in the neck of the gallbladder with mild distension of the gallbladder lumen general surgery evaluated patient and she is admitted to the general surgery service management as per primary team general surgery #History of endometrial cancer s/p robotic hysterectomy with bilateral salpingo-oophrectomy and lymph node sampling, followed by vaginal brachii therapy in 2014. Says she had the surgery done at [facility] also had exploratory laparotomy with repair of ventral hernia and debulking resection of t intra abdominal tumors, which were found to be metastatic adenocarcinoma with squamous differentiation. #Hypertension: on valsartan #Hypothyroidism; on synthroid #TYpe 2 diabetes mellitus: ISS. Accuchecks ACHS #GERD:on PPI DVT prophylaxis: on coumadin. Unclear why she is on coumadin; she says she doesnt know why she is on it, or who prescribed it. Hold coumadin as she will have surgery tomorrow. Start on lovenox 40mg daily. REquest records from [facility] to see why she is on coumadin THank you for the courtesy of the consult. We will continue to follow with you. HPI Consult Data Date of Consult: 04/06/22 HPI Narrative Reason for Consultation: medical management HPI Narrative: NAEEM HIGHTOWER, is a 66 F with a PMH as outlined who presents via the ED with a complaint of abdominal pain which started the day of admission. Pain was mainly in the epigastrum and right upper quadrant area. She also complained of poor appetite, abdominal discomfort and multiple episodes of loose diarrhea. She denied any fever, chils,nausea, vomiting or diarrhea. She has a history of endometrial cancer, for which she had surgery at [facility]. She was also on coumadin, though she didnt know why she was on coumadin and didnt even know who prescribed it for her. She denies any history of blood clots or afib. Vitals in the ED were BP of 154/72, DE of 84, RR of 18 and she was saturating at 96% on room air. CBC showed wbc of 16.2, Hb of 9.8 and platelets of 309. INR was 1.2. Chemistry showed sodium of 140 and potassiuim of 3.3 as well as bicarb of 24. Liver profile was normal. Urinalysis showed no evidence of UTI. Gallbladder USG shwoed a solitary gallstone in hte neck of the gallbladder with distention of the gallbladder, and nonobstructive right intrarenal calculus, as well as fatty infiltrate of the liver. CT of the abdomen showed solitary gallstone in the neck of the gallbladder with mild distention of the gallbladder lumen and finding suggestive of prior right hemicolectomy. Patient was admitted to the service of general surgery hospitalist service was consulted for medical management. Patient initially requested transfer to [facility] but there were no beds available so she agreed to stay. [facility] Medical History (Updated 04/06/22 @ 15:52 by Renetta Lynch) Anemia Anxiety Depression Diabetes mellitus Gallstones GERD (gastroesophageal reflux disease) HTN (hypertension) Hypothyroid Migraines Non-smoker Paraesophageal hernia Renal calculi Uterine cancer Home Medications lansoprazole 30 mg capsule,delayed release 30 mg PO DAILY PRN gerd 01/24/21 [History Last Taken Unknown] lorazepam 0.5 mg tablet 0.5 mg PO Q8H PRN PRN Anxiety 01/24/21 [History Last Taken 04/05/22] valsartan 80 mg tablet 80 mg PO DAILY htn 01/24/21 [History Last Taken 04/06/22] warfarin 2.5 mg tablet 2.5 mg PO DAILY 01/24/21 [History Last Taken 04/06/22] ondansetron 4 mg disintegrating tablet 4 mg PO Q8H PRN PRN Nausea #10 tabs 04/15/21 [Rx Last Taken Unknown] nystatin 100,000 unit/gram topical cream 1 applic topical DAILY skin 04/06/22 [History Last Taken 04/04/22] potassium chloride 20 mEq tablet,extended release(part/cryst) 20 meq PO DAILY 04/06/22 [History Last Taken 04/03/22] Allergy/AdvReac Type Severity Reaction Status Date / Time No Known Allergies Allergy Verified 04/06/22 08:18 Family History Father Diabetes Non-alcoholic cirrhosis Mother Breast cancer Dementia Surgical History History of dilation and curettage History of hysterectomy History of tonsillectomy and adenoidectomy Social History Smoking Status: Never smoker ROS Review of Systems ROS Unobtainable: Denies due to encephalopathy Constitutional Constitutional: Reports anorexia, fatigue, malaise and weakness; Denies change in weight, chills or fever(s) Eyes Eyes: Denies change in vision ENT HEENT: Denies dysphagia Cardiovascular Cardiovascular: Denies chest pain, dyspnea on exertion, edema, lightheadedness, orthopnea, palpitations, rapid heart rate or syncope Respiratory/Chest Respiratory/Chest: Denies cough, excessive phlegm production, productive cough, shortness of breath at rest, shortness of breath with exertion or wheezing Gastrointestinal Gastrointestinal: Reports abdominal pain, diarrhea, nausea and vomiting; Denies constipation, dyspepsia, hematemesis or melena Genitourinary Genitourinary: Denies burning urination, dysuria, hematuria, urinary frequency or urinary hesitancy Musculoskeletal Musculoskeletal: Denies arthralgias Neurologic Neurologic: Denies abnormal gait or confusion Psychiatric Psychiatric: Denies anxiety Endocrine Endocrinology: Denies change in body appearance Physical Exam Const alert, oriented x3 and no apparent distress General Appearance: cooperative HEENT normocephalic, head/scalp atraumatic and hearing grossly normal bilaterally Mouth: oral and palatal mucosa normal Eyes PERRL, EOMs intact bilaterally and conjunctivae normal Neck no lymphadenopathy, supple and no JVD Resp normal respiratory effort, no retractions, no use of accessory muscles and clear to auscultation bilaterally Auscultation: crackles Cardio regular rate, regular rhythm, S1 normal heart sound, S2 normal heart sound and no murmurs GI normal to inspection, nondistended, normoactive bowel sounds, soft to palpation and non-tender Auscultation: hyperactive bowel sounds and hypoactive bowel sounds Extremity normal to inspection, full ROM and no clubbing, cyanosis or edema Neuro oriented x3, CN's II-XII intact bilaterally, moves all extremities, no focal motor deficits and no sensory deficits noted Sensorium / Orientation: awake and alert Motor Exam: strength 5/5 throughout Psych affect normal Lab / Micro Data Result Diagrams: 04/06/22 08:20 04/06/22 08:20 Labs: Laboratory Results - last 24 hr 04/06/22 08:15: Urine Color Yellow, Urine Clarity Clear, Urine pH 7.0, Ur Specific [place] 1.010, Urine Protein 15 H, Urine Glucose (UA) 100 H, Urine Ketones 5 H, Urine Occult Blood Negative, Urine Nitrite Negative, Urine Bilirubin Negative, Urine Urobilinogen Normal, Ur Leukocyte Esterase Negative, Urine RBC 0 SEEN, Urine WBC 0-5 SEEN, Ur Squamous Epith Cells 0-5 SEEN, Urine Bacteria RARE, Urine Mucus 1+ 04/06/22 08:20: WBC 16.2 H, RBC 5.08, Hgb 9.8 L, Hct 33.8 L, MCV 66.5 L, MCH 19.3 L, MCHC 29.0 L, RDW Std Deviation 48.1 H, RDW Coeff of Tammie 21.2 H, Plt Count 309, Immature Gran % (Auto) 2.700 H, Neut % (Auto) 85.7 H, Lymph % (Auto) 7.3 L, [place] % (Auto) 3.9, Eos % (Auto) 0.1, Baso % (Auto) 0.3, Absolute Neuts (auto) 13.9 H, Absolute Lymphs (auto) 1.19, Nucleated RBC % 0, Platelet Estimate ADEQUATE, RBC Morphology N CHROM, Anisocytosis 1+ 04/06/22 08:20: PT 14.9, INR 1.2 04/06/22 08:20: Sodium 140, Potassium 3.3 L, Chloride 108 H, Carbon Dioxide 24.0, Anion Gap 8, BUN 6 L, Creatinine 0.75, Estim Creat Clear Calc 41.76, Est GFR (MDRD) Af Amer 99, Est GFR (MDRD) Non-Af 82, BUN/Creatinine Ratio 8.0 L, Glucose 174 H, Calcium 8.9, Total Bilirubin 0.30, AST 16, ALT 23, Alkaline Phosphatase 79, Troponin I High Sens 6, Total Protein 7.4, Albumin 3.8, Globulin 3.6, Albumin/Globulin Ratio 1.1, Lipase 180 Micro: Microbiology 04/06/22 08:20 Nasal Secretion SARS-CoV-2 Antigen (Rapid) - Final 04/06/22 08:00 Stool Stool Occult Blood (RAJ) - Final Rhythm Strip Rhythm Strip: Sinus Rhythm Rate: 65 Ectopy: None Radiology Impression Abdomen/Pelvis CT 04/06/22 08:04 IMPRESSION: Solitary gallstone in the neck of the gallbladder with mild distention of the gallbladder lumen. Correlation with ultrasound is recommended. Findings suggestive of a prior right hemicolectomy. Nonobstructive, considering the posterior lower pole calyx of the right kidney. Electronically Signed: Wade Lind MD at 10:02 EDT , Chest X-Ray 04/06/22 09:40 IMPRESSION: No acute abnormality is seen. Electronically Signed: Wade Lind MD at 10:04 EDT , Gallbladder Ultrasound 04/06/22 09:59 IMPRESSION: Solitary gallstone in the neck of the gallbladder with distention of the gallbladder. Small right renal cyst and nonobstructive right intrarenal calculus. Fatty infiltration of the liver. Electronically Signed: Wade Lind MD at 11:33 EDT , Charges/Coding Visit Charges Office Visits / Consults: [id number] IP Consult L4
--- NOTE | 2022-04-06 15:03 | PCM.HP.STD ---
[facility] - General General Date of Service: 04/06/22 Chief Complaint: Abdominal discomfort and generalized weakness HPI Narrative NAEEM HIGHTOWER, is a 66 F with a number of comorbidities including diabetes mellitus, hypertension, GERD, and chronic anticoagulation on warfarin who presents to [facility] after acute onset of generalized weakness and abdominal pain last evening. She states she suddenly felt weak last evening and some rather nonspecific abdominal pain along the right side of her abdomen. Her dinner consisted of chocolate covered bananas, but she did admit to a meal of greasy foods for lunch. She notes a history of uterine cancer and concurrent Keytruda therapy. She reports her last treatment was last week and it has always been well-tolerated so she decided to seek evaluation when she felt this change in her wellbeing. Patient's ED work-up was notable for leukocytosis with left shift. CT imaging showed a distended gallbladder with a solitary gallstone in the gallbladder neck. This was confirmed with reflex ultrasound and there was mention of a positive sonographic Conroy sign, but importantly gallbladder wall was not thickened and there is no pericholecystic fluid or common bile duct dilation. Patient was also negative for any signs of transaminitis. Patient reports some 8-9 prior abdominal surgical procedures with Dr. Gagandeep Charles of gynecology oncology through [facility]. She also reports a history of a complicated, redo hiatal hernia repair for paraesophageal hernia with Dr. Glover(sp?), also of [facility]. [facility] Medical History (Updated 04/06/22 @ 13:[address] Xander Hunter MD) Anemia Depression Diabetes mellitus Gallstones GERD (gastroesophageal reflux disease) HTN (hypertension) Hypothyroid Paraesophageal hernia Renal calculi Uterine cancer Home Medications lansoprazole 30 mg capsule,delayed release 30 mg PO DAILY PRN gerd 01/24/21 [History Last Taken Unknown] lorazepam 0.5 mg tablet 0.5 mg PO Q8H PRN PRN Anxiety 01/24/21 [History Last Taken Unknown] valsartan 80 mg tablet 80 mg PO DAILY 01/24/21 [History Last Taken Unknown] warfarin 2.5 mg tablet 2.5 mg PO DAILY 01/24/21 [History Last Taken Unknown] oxycodone-acetaminophen 5 mg-325 mg tablet (Percocet) 1 tab PO Q8H PRN pain 3 days #10 tabs 02/21/21 [Rx Last Taken Unknown] ondansetron 4 mg disintegrating tablet 4 mg PO Q8H PRN PRN Nausea #10 tabs 04/15/21 [Rx Last Taken Unknown] Allergy/AdvReac Type Severity Reaction Status Date / Time No Known Allergies Allergy Verified 04/06/22 08:18 Family History Father Diabetes Non-alcoholic cirrhosis Mother Breast cancer Dementia Surgical History History of dilation and curettage History of hysterectomy History of tonsillectomy and adenoidectomy Social History Smoking Status: Never smoker Vital Signs Vital Signs Vital Signs: 04/06/22 07:39 04/06/22 07:52 04/06/22 10:40 Temperature 97.8 F 97.9 F Temperature Source Temporal Oral Pulse Rate 69 68 81 Respiratory Rate 18 24 H 18 Blood Pressure 183/86 H 198/81 H 142/49 H Blood Pressure Mean 118 120 80 Pulse Ox 99 99 Oxygen Delivery Method Room Air Room Air 04/06/22 11:18 Temperature Temperature Source Pulse Rate 84 Respiratory Rate 18 Blood Pressure 154/72 H Blood Pressure Mean 99 Pulse Ox 96 Oxygen Delivery Method Room Air Weight Weight: 170 lb Body Mass Index (BMI) 32.1 Physical Exam Const alert and oriented x3 GI GI Narrative: Nondistended, multiple scars including the primarily infraumbilical laparotomy incision now well-healed. No evidence of hernia with inspection. Patient was soft and tender to palpation in the right upper quadrant with a clinically positive Conroy sign Results Lab / Micro Data Result Diagrams: 04/06/22 08:20 04/06/22 08:20 Labs: Laboratory Results - last 24 hr 04/06/22 08:15: Urine Color Yellow, Urine Clarity Clear, Urine pH 7.0, Ur Specific [place] 1.010, Urine Protein 15 H, Urine Glucose (UA) 100 H, Urine Ketones 5 H, Urine Occult Blood Negative, Urine Nitrite Negative, Urine Bilirubin Negative, Urine Urobilinogen Normal, Ur Leukocyte Esterase Negative, Urine RBC 0 SEEN, Urine WBC 0-5 SEEN, Ur Squamous Epith Cells 0-5 SEEN, Urine Bacteria RARE, Urine Mucus 1+ 04/06/22 08:20: WBC 16.2 H, RBC 5.08, Hgb 9.8 L, Hct 33.8 L, MCV 66.5 L, MCH 19.3 L, MCHC 29.0 L, RDW Std Deviation 48.1 H, RDW Coeff of Tammie 21.2 H, Plt Count 309, Immature Gran % (Auto) 2.700 H, Neut % (Auto) 85.7 H, Lymph % (Auto) 7.3 L, [place] % (Auto) 3.9, Eos % (Auto) 0.1, Baso % (Auto) 0.3, Absolute Neuts (auto) 13.9 H, Absolute Lymphs (auto) 1.19, Nucleated RBC % 0, Platelet Estimate ADEQUATE, RBC Morphology N CHROM, Anisocytosis 1+ 04/06/22 08:20: PT 14.9, INR 1.2 04/06/22 08:20: Sodium 140, Potassium 3.3 L, Chloride 108 H, Carbon Dioxide 24.0, Anion Gap 8, BUN 6 L, Creatinine 0.75, Estim Creat Clear Calc 41.76, Est GFR (MDRD) Af Amer 99, Est GFR (MDRD) Non-Af 82, BUN/Creatinine Ratio 8.0 L, Glucose 174 H, Calcium 8.9, Total Bilirubin 0.30, AST 16, ALT 23, Alkaline Phosphatase 79, Troponin I High Sens 6, Total Protein 7.4, Albumin 3.8, Globulin 3.6, Albumin/Globulin Ratio 1.1, Lipase 180 Micro: Microbiology 04/06/22 08:20 Nasal Secretion SARS-CoV-2 Antigen (Rapid) - Final 04/06/22 08:00 Stool Stool Occult Blood (RAJ) - Final Rhythm Strip Rhythm Strip: Sinus Rhythm Rate: 65 Ectopy: None Radiology Impression Abdomen/Pelvis CT 04/06/22 08:04 IMPRESSION: Solitary gallstone in the neck of the gallbladder with mild distention of the gallbladder lumen. Correlation with ultrasound is recommended. Findings suggestive of a prior right hemicolectomy. Nonobstructive, considering the posterior lower pole calyx of the right kidney. Electronically Signed: Wade Lind MD at 10:02 EDT , Chest X-Ray 04/06/22 09:40 IMPRESSION: No acute abnormality is seen. Electronically Signed: Wade Lind MD at 10:04 EDT , Gallbladder Ultrasound 04/06/22 09:59 IMPRESSION: Solitary gallstone in the neck of the gallbladder with distention of the gallbladder. Small right renal cyst and nonobstructive right intrarenal calculus. Fatty infiltration of the liver. Electronically Signed: Wade Lind MD at 11:33 EDT , Assessment & Plan Assessment/Plan (1) Acute calculous cholecystitis: PLAN: This is a 66-year-old female with complex past medical and past surgical histories (the latter most related to a history of uterine cancer), who presents with signs and symptoms of acute calculus cholecystitis. She is currently receiving infusions of Keytruda for management of her cancer diagnosis through [facility]. I discussed with Ms. Pacheco my suspicion for acute cholecystitis and my recommendation for laparoscopic cholecystectomy. I also shared with them my intent to on board our hospitalist service given the patient's numerous other comorbidities and even introduced them to Dr. Edouard of the hospitalist service. Immediately patient and her brother expressed hesitancy with proceeding with any surgical intervention here in [place] and stated they would prefer to run things by Dr. Charles of gynecology oncology. They stated that if any surgery were required they would like for it to be done at [facility] given their familiarity with her care to date. Therefore, this request was further to emergency medicine and provisions will be made to transfer patient to [place] for evaluation. Charges/Coding Visit Charges Inpatient E&M: 92536 Init Hosp L2
--- NOTE | 2022-04-06 15:24 | NURSING ---
CALLED [facility]. NOT ACCEPTING ADMITS. LOTS IN ER WAITING ROOM
--- NOTE | 2022-04-06 15:54 | NURSING ---
MED SURG BORLIEN ACUTE CHOLECYSTITIS
[2022-04-06 17:51] LABS: Bedside Glucose 143 mg/dL (74-106)
[2022-04-06] MEDS: Potassium Chloride Oral Tablet 20 MEQ 40 MEQ PO (18:09)
[2022-04-06] MEDS: 0.9% Normal Saline 1,000 ML 125 ML IV (18:10)
[2022-04-06] MEDS: 0.9% Saline Lock 10 ML Syringe IV (21:34)
[2022-04-06 21:46] LABS: Bedside Glucose 139 mg/dL (74-106)
[2022-04-06] MEDS: LORazepam 0.5 MG Tablet PO (22:42)
[2022-04-07 01:16] LABS: Bedside Glucose 144 mg/dL (74-106)
[2022-04-07 02:20] VITALS: BP 153/89; PULSE 92; RESP 16; TEMP 37.2; O2SAT 98
[2022-04-07] MEDS: 0.9% Normal Saline 1,000 ML 125 ML IV (02:36)
[2022-04-07 05:41] LABS: Bedside Glucose 142 mg/dL (74-106)
[2022-04-07 06:37] LABS: Absolute Lymphocyte Count 1.42 X10^3/uL (0.83-4.51); Absolute Neutrophil Count 19.1 X10^3/uL (2.0-7.7); Basophil# 0.03 X10^3/uL; Basophil% 0.1 % (0-1); Hematocrit 29.7 % (37-47); Lymphocyte # 1.42 X10^3/ul (0.83-4.51); Lymphocyte % 6.3 % (19-41); Mean Corp Hgb Conc 30.3 g/dL (32-36); Mean Corpuscular Hgb 19.6 pg (27.0-32.0); Mean Corpuscular Volume 64.7 fL (81-99); Monocyte# 1.94 X10^3/uL; Monocyte% 8.6 % (0-10); NRBC Flagged by Analyzer 0 % (0-5); Neutrophil % 84.3 % (47-70); POSITIVE DIFFERENTIAL YES; POSITIVE MORPHOLOGY YES; Platelet Count 293 K/mm3 (150-450); RBC Distribution Width CV 20.9 % (11.6-14.6); RBC Distribution Width SD 46.3 fl (35.1-43.9); Red Blood Count 4.59 M/mm3 (4.2-5.4); White Blood Count 22.6 K/mm3 (4.4-11.0)
[2022-04-07 06:44] LABS: Differential Indicated SCAN CRITERIA MET
[2022-04-07 06:45] LABS: International Normalized Ratio 1.3; Prothrombin Time (Protime)PT. 15.8 SECONDS (11.7-14.9)
[2022-04-07 07:00] LABS: Anisocytosis 2+; Microcytosis 2+; Polychromasia 2+
[2022-04-07 07:10] LABS: AST(SGOT) 44 U/L (15-37); Alanine Aminotransfer ALT/SGPT 40 U/L (13-56); Albumin, Serum 3.1 g/dL (3.2-5.0); Alkaline Phosphatase 73 U/L (45-117); Anion Gap 5 (5-15); BUN 5 mg/dL (7-18); BUN/Creat Ratio 7.9 RATIO (10-20); Calcium,Total 8.4 mg/dL (8.5-10.1); Chloride 110 mmol/L (98-107); Creatinine, Serum 0.63 mg/dL (0.55-1.02); EST Glomerular Filtration Rate 100 mL/min (>60); Est Glom Filt Rate - Afr Amer 121 mL/min (>60); Estimated Creatinine Clearance 41.76 ml/min; Globulin 3.1 g/dL (2.2-4.2); Glucose 134 mg/dL (74-106); Lipase 60 U/L (73-393); Potassium 3.1 mmol/L (3.5-5.1); Protein, Total 6.2 g/dL (6.4-8.2); Sodium Level 140 mmol/L (136-145)
--- NOTE | 2022-04-07 08:04 | PN.SURG_ITS ---
Subjective Subjective Patient seen and examined during AM rounds. She denies any significant abdominal pain at rest. She denies any nausea. Objective Data Objective Data Vital Signs: Vital Signs Temp Pulse Resp BP Pulse Ox 98.9 F 92 16 153/89 H 98 04/07/22 02:20 04/07/22 02:20 04/07/22 02:20 04/07/22 02:20 04/07/22 02:20 Oxygen Delivery Method Room Air Weight: 170 lb 1.6 oz Body Mass Index (BMI) 32.1 Intake & Output: Intake and Output for Last 24 Hours 04/05/22 04/06/22 04/07/22 23:59 23:59 23:59 Intake Total 1050 / 1050 1050 / 1050 Output Total 0 / 0 Balance 1050 / 1050 1050 / 1050 Lab / Micro Data Result Diagrams: 04/07/22 05:52 04/07/22 05:52 Labs: Laboratory Results - last 24 hr 04/06/22 08:15: Urine Color Yellow, Urine Clarity Clear, Urine pH 7.0, Ur Specific [place] 1.010, Urine Protein 15 H, Urine Glucose (UA) 100 H, Urine Ketones 5 H, Urine Occult Blood Negative, Urine Nitrite Negative, Urine Bilirubin Negative, Urine Urobilinogen Normal, Ur Leukocyte Esterase Negative, Urine RBC 0 SEEN, Urine WBC 0-5 SEEN, Ur Squamous Epith Cells 0-5 SEEN, Urine Bacteria RARE, Urine Mucus 1+ 04/06/22 08:20: WBC 16.2 H, RBC 5.08, Hgb 9.8 L, Hct 33.8 L, MCV 66.5 L, MCH 19.3 L, MCHC 29.0 L, RDW Std Deviation 48.1 H, RDW Coeff of Tammie 21.2 H, Plt Count 309, Immature Gran % (Auto) 2.700 H, Neut % (Auto) 85.7 H, Lymph % (Auto) 7.3 L, Gillespie % (Auto) 3.9, Eos % (Auto) 0.1, Baso % (Auto) 0.3, Absolute Neuts (auto) 13.9 H, Absolute Lymphs (auto) 1.19, Nucleated RBC % 0, Platelet Estimate ADEQUATE, RBC Morphology N CHROM, Anisocytosis 1+ 04/06/22 08:20: PT 14.9, INR 1.2 04/06/22 08:20: Sodium 140, Potassium 3.3 L, Chloride 108 H, Carbon Dioxide 24.0, Anion Gap 8, BUN 6 L, Creatinine 0.75, Estim Creat Clear Calc 41.76, Est GFR (MDRD) Af Amer 99, Est GFR (MDRD) Non-Af 82, BUN/Creatinine Ratio 8.0 L, Glucose 174 H, Calcium 8.9, Total Bilirubin 0.30, AST 16, ALT 23, Alkaline Phosphatase 79, Troponin I High Sens 6, Total Protein 7.4, Albumin 3.8, Globulin 3.6, Albumin/Globulin Ratio 1.1, Lipase 180 04/06/22 17:45: POC Glucose 143 H 04/06/22 21:27: POC Glucose 139 H 04/07/22 00:53: POC Glucose 144 H 04/07/22 05:31: POC Glucose 142 H 04/07/22 05:52: PT 15.8 H, INR 1.3 04/07/22 05:52: WBC 22.6 H, RBC 4.59, Hgb 9.0 L, Hct 29.7 L, MCV 64.7 L, MCH 19.6 L, MCHC 30.3 L, RDW Std Deviation 46.3 H, RDW Coeff of Tammie 20.9 H, Plt Count 293, Immature Gran % (Auto) 0.700, Neut % (Auto) 84.3 H, Lymph % (Auto) 6.3 L, Gillespie % (Auto) 8.6, Eos % (Auto) 0.0, Baso % (Auto) 0.1, Absolute Neuts (auto) 19.1 H, Absolute Lymphs (auto) 1.42, Nucleated RBC % 0, Diff Path Review May foll, Polychromasia 2+, Anisocytosis 2+, Microcytosis 2+ 04/07/22 05:52: Sodium 140, Potassium 3.1 L, Chloride 110 H, Carbon Dioxide 25.0, Anion Gap 5, BUN 5 L, Creatinine 0.63, Estim Creat Clear Calc 41.76, Est GFR (MDRD) Af Amer 121, Est GFR (MDRD) Non-Af 100, BUN/Creatinine Ratio 7.9 L, Glucose 134 H, Calcium 8.4 L, Total Bilirubin 0.80, AST 44 H, ALT 40, Alkaline Phosphatase 73, Total Protein 6.2 L, Albumin 3.1 L, Globulin 3.1, Albumin/Globulin Ratio 1.0, Lipase 60 L Micro: Microbiology 04/06/22 08:20 Nasal Secretion SARS-CoV-2 Antigen (Rapid) - Final 04/06/22 08:00 Stool Stool Occult Blood (RAJ) - Final Radiography Diagnostic Testing: Radiology Impression Abdomen/Pelvis CT 04/06/22 08:04 IMPRESSION: Solitary gallstone in the neck of the gallbladder with mild distention of the gallbladder lumen. Correlation with ultrasound is recommended. Findings suggestive of a prior right hemicolectomy. Nonobstructive, considering the posterior lower pole calyx of the right kidney. Electronically Signed: Wade Lind MD at 10:02 EDT , Chest X-Ray 04/06/22 09:40 IMPRESSION: No acute abnormality is seen. Electronically Signed: Wade Lind MD at 10:04 EDT , Gallbladder Ultrasound 04/06/22 09:59 IMPRESSION: Solitary gallstone in the neck of the gallbladder with distention of the gallbladder. Small right renal cyst and nonobstructive right intrarenal calculus. Fatty infiltration of the liver. Electronically Signed: Wade Lind MD at 11:33 EDT , Rhythm Strip Rhythm Strip: Sinus Rhythm Rate: 65 Ectopy: None Physical Exam Const oriented x3 and no apparent distress Resp normal respiratory effort GI GI Narrative: Nondistended, soft, tender to palpation right upper quadrant Assessment & Plan Assessment/Plan (1) Acute calculous cholecystitis: PLAN: Patient hospital day 1 for admission for acute cholecystitis. She denies any significant abdominal discomfort at rest, but continues to have right upper quadrant tenderness on exam. Her white count is further elevated today. This seems to be in line with our diagnosis of acute cholecystitis. We were planning for laparoscopic cholecystectomy with probable intraoperative cholangiogram today, however, the operating room reports limited availability and we may be forced to put the surgery off until tomorrow. We will plan to notify the floor if the case is officially postponed so that patient can resume a diet. We will continue to hold any anticoagulation preoperatively. Neuro: As needed acetaminophen Pulm/CV: Incentive spirometer, hypertension to be addressed by hospitalist service FEN/GI: Patient require some electrolyte replacement today. We will likely reinstate diet and hold n.p.o. at midnight anticipation of case tomorrow. CMP does not show any remarkable changes Heme/ID: Patient's leukocytosis worsened today likely due to acute mich cystitis. Continue antibiotics and plan for laparoscopic cholecystectomy Endo: Diabetes under management of hospitalist service Proph: Hold enoxaparin until appropriate postop Dispo: Continue inpatient stay
[2022-04-07 08:20] LABS: Hemoglobin A1c 5.4 % (3.8-5.6)
[2022-04-07] MEDS: Potassium Chloride 10mEq/100mL 10 MEQ/100 ML IV.SOLN. 100 MEQ IV BOLUS ×4 (08:47→12:00)
[2022-04-07 09:00] VITALS: BP 163/89; PULSE 90; RESP 16; TEMP 36.9; O2SAT 97
[2022-04-07] MEDS: LORazepam 0.5 MG Tablet PO ×2 (10:01→21:55)
[2022-04-07] MEDS: Potassium Chloride Oral Tablet 20 MEQ PO (10:21)
[2022-04-07] MEDS: Losartan Potassium 25 MG Tablet PO (10:21)
[2022-04-07] MEDS: 0.9% Normal Saline 1,000 ML 100 ML IV ×2 (10:55→20:09)
--- NOTE | 2022-04-07 10:56 | PN.HOSP_ITS ---
Subjective Subjective Patient seen and examined. She says her abdominal pain has improved a bit, but is still present. She denies any fever, chills, nausea, vomiting or diarrhea. Review of systems is otherwise negative. Objective Data Objective Data Vital Signs: Vital Signs Temp Pulse Resp BP Pulse Ox 98.9 F 92 16 153/89 H 98 04/07/22 02:20 04/07/22 02:20 04/07/22 02:20 04/07/22 02:20 04/07/22 02:20 Oxygen Delivery Method Room Air Weight: 170 lb 1.6 oz Body Mass Index (BMI) 32.1 Intake & Output: Intake and Output for Last 24 Hours 04/05/22 04/06/22 04/07/22 23:59 23:59 23:59 Intake Total 1050 / 1050 2293.33 / 2293.33 Output Total 0 / 0 Balance 1050 / 1050 2293.33 / 2293.33 Lab / Micro Data Result Diagrams: 04/07/22 05:52 04/07/22 05:52 Labs: Laboratory Results - last 24 hr 04/06/22 17:45: POC Glucose 143 H 04/06/22 21:27: POC Glucose 139 H 04/07/22 00:53: POC Glucose 144 H 04/07/22 05:31: POC Glucose 142 H 04/07/22 05:52: PT 15.8 H, INR 1.3 04/07/22 05:52: WBC 22.6 H, RBC 4.59, Hgb 9.0 L, Hct 29.7 L, MCV 64.7 L, MCH 19.6 L, MCHC 30.3 L, RDW Std Deviation 46.3 H, RDW Coeff of Tammie 20.9 H, Plt Count 293, Immature Gran % (Auto) 0.700, Neut % (Auto) 84.3 H, Lymph % (Auto) 6. 3 L, [place] % (Auto) 8.6, Eos % (Auto) 0.0, Baso % (Auto) 0.1, Absolute Neuts ( auto) 19.1 H, Absolute Lymphs (auto) 1.42, Nucleated RBC % 0, Diff Path Review May , Polychromasia 2+, Anisocytosis 2+, Microcytosis 2+ 04/07/22 05:52: Sodium 140, Potassium 3.1 L, Chloride 110 H, Carbon Dioxide 25.0 , Anion Gap 5, BUN 5 L, Creatinine 0.63, Estim Creat Clear Calc 41.76, Est GFR (MDRD) Af Amer 121, Est GFR (MDRD) Non-Af 100, BUN/Creatinine Ratio 7.9 L, Glucose 134 H, Calcium 8.4 L, Total Bilirubin 0.80, AST 44 H, ALT 40, Alkaline Phosphatase 73, Total Protein 6.2 L, Albumin 3.1 L, Globulin 3.1, Albumin/Globulin Ratio 1.0, Lipase 60 L 04/07/22 05:52: Hemoglobin A1c 5.4 Micro: Microbiology 04/06/22 08:20 Nasal Secretion SARS-CoV-2 Antigen (Rapid) - Final 04/06/22 08:00 Stool Stool Occult Blood (RAJ) - Final Radiography Diagnostic Testing: Radiology Impression Gallbladder Ultrasound 04/06/22 09:59 IMPRESSION: Solitary gallstone in the neck of the gallbladder with distention of the gallbladder. Small right renal cyst and nonobstructive right intrarenal calculus. Fatty infiltration of the liver. Electronically Signed: Wade Lind MD at 11:33 EDT , Rhythm Strip Rhythm Strip: Sinus Rhythm Rate: 65 Ectopy: None Physical Exam Const alert, oriented x3 and no apparent distress General Appearance: cooperative HEENT normocephalic, head/scalp atraumatic and hearing grossly normal bilaterally Eyes PERRL, EOMs intact bilaterally and conjunctivae normal Neck no lymphadenopathy, supple and no JVD Resp normal respiratory effort, no retractions, no use of accessory muscles and clear to auscultation bilaterally Auscultation: crackles Cardio regular rate, regular rhythm, S1 normal heart sound, S2 normal heart sound and no murmurs GI normal to inspection, nondistended, normoactive bowel sounds, soft to palpation and non-tender Auscultation: hyperactive bowel sounds and hypoactive bowel sounds Extremity normal to inspection, full ROM and no clubbing, cyanosis or edema Neuro oriented x3, CN's II-XII intact bilaterally, moves all extremities, no focal motor deficits and no sensory deficits noted Sensorium / Orientation: awake and alert Motor Exam: strength 5/5 throughout Psych affect normal Assessment & Plan Assessment/Plan (1) Acute calculous cholecystitis: PLAN: Plan #Acute cholecystitis * has gallstone stuck in the neck of the gallbladder with mild distension of the gallbladder lumen * general surgery evaluated patient and she is admitted to the general surgery service * management as per primary team general surgery * currenlty NPO, pending surgery * #History of endometrial cancer * s/p robotic hysterectomy with bilateral salpingo-oophrectomy and lymph node sampling, followed by vaginal brachii therapy in 2014. * Says she had the surgery done at [facility] * also had exploratory laparotomy with repair of ventral hernia and debulking resection of t intra abdominal tumors, which were found to be metastatic adenocarcinoma with squamous differentiation. * on coumadin. unclear why. Records requested from [facility] #Hypertension: on valsartan #Hypothyroidism; on synthroid #TYpe 2 diabetes mellitus: ISS. Accuchecks ACHS #GERD:on PPI DVT prophylaxis: * on coumadin. Unclear why she is on coumadin; she says she doesnt know why she is on it, or who prescribed it. * coumadin on hold pending surgery. INR today is 2.3 * on lovenox 40mg daily. * Thank you for the courtesy of the consult. We will continue to follow with you. Charges/Coding Visit Charges Inpatient E&M: 83476 [facility] Hosp L3
[2022-04-07 11:55] LABS: Bedside Glucose 133 mg/dL (74-106)
--- NOTE | 2022-04-07 12:15 | CASEMGMT ---
RN MARS Face to Face with patient for initial transition planning/care coordination assessment. RN CM introduced self and role at [facility]. Patient lying in bed, alert and oriented. Patient willing to participate in assessment and is able to answer all questions appropriately. Care providers, pharmacy, and demographics verified. Patient wishes to discharge home, denies need for home health at this time. Patient states she has no further needs or concerns at this time. CM to follow for discharge planning needs that may arise. PCP: eMlvin Specialists: none Preferred [facility]acy: [facility] Insurance: [place] [facility] Prescription Benefit: yes Living Will/HPOA: none LNOK: brother Living Arrangements: patient lives with brother in a single story home. Patient is independent and able to ambulate stairs. Transportation: self, brother DME/HHC: patient states she has access to shower chair, raised toilet, cane, walker, and wheelchair. Patient denies previous HHC or SNF Disposition Plan: Patient to discharge home with family support and follow-up plans in place. Tiffany HUNTER, RN, CM
[2022-04-07 14:00] VITALS: BP 156/88; PULSE 80; RESP 17; TEMP 37.1; O2SAT 98
--- NOTE | 2022-04-07 15:30 | CHAPLAIN ---
Type of Pastoral Visit _x__ Initial Visit ___ Follow-up Visit ___ On-call Visit ___ General Patient Visit ___ Spiritual Assessment ___ Family Conference ___ Bereavement ___ Rapid Response ___ Code Blue ___ Other (describe below) Pastoral Care Referral From _x__ Patient ___ Family ___ Nurse ___ Physician ___ Administrative Specialist ___ Ferry Engineer ___ Other (describe below) Sacrament/Intervention _x__ Active listening ___ Anointing ___ Buddhism ___ Bereavement ___ Communion _x__ Loan exploration ___ _x__ Life review _x__ Prayer ___ Reconciliation ___ Sacrament of Sick _x__ Supportive presence ___ Wedding ___ Other (describe below) Pastoral Comments longer visit due to slowness of progress in visit as it is interrupted by phone and others in the medical team; pt admits to some anxiety about health and surgery; pt asks several times for prayer which is given; pt gives some life review and has faced significant changes in her life in recent years/months
[2022-04-07 17:00] LABS: Bedside Glucose 129 mg/dL (74-106)
[2022-04-07] MEDS: Pantoprazole Sodium 40 MG Tablet PO (17:06)
[2022-04-07 20:15] VITALS: BP 142/86; PULSE 82; RESP 16; TEMP 37.2; O2SAT 95
[2022-04-07 22:06] LABS: Bedside Glucose 134 mg/dL (74-106)
[2022-04-08] VITALS (13 sets, daily range): BP systolic 132–170; BP diastolic 74–90; PULSE 67–98; RESP 15–16; TEMP 36.2–37; O2SAT 92–98
--- NOTE | 2022-04-08 | GALL_PTH ---
PATIENT: NAEEM HIGHTOWER LOC: MS3 U#:[id number] AGE/SX: 66/F [facility] RE04/06/[address]: Dr. Bobby Wray MD : 1955 BED: 1 DIS: 04/09/2022 SPEC #: [id number] RECD: 04/08/22 15:08 STATUS: MILA MENA #: [id number] ANITA: 04/08/22 00:[address]: Bobby Wray DEPT: SURGICAL PATHOLOGY RECD BY: Bert Rubin ENTERED: 04/11/22 08:44 SP TYPE: BETHANY SUH DR: MD Dr. Gagandeep Espinoza MD Tissues: Gallbladder, NOS Procedures: Surgery Specimen Level III HEADER OPERATION: Laparoscopic cholecystectomy with IOC PRE-OP DIAGNOSIS: Acute calculous cholecystitis TISSUE SUBMITTED: Gallbladder and contents MICROSCOPIC DIAGNOSIS Gallbladder, cholecystectomy: Acute and chronic cholecystitis and cholelithiasis. Fragments of benign fat parenchyma. AM:vicky 04/12/2022 MICROSCOPIC DESCRIPTION Slides are reviewed. GROSS DESCRIPTION Received is one container labeled with the patient's name and designated gallbladder and contents. The specimen consists of a gallbladder measuring 10 cm in length and up to 5.5 cm in diameter. The external surface is pink-araujo, smooth and glistening for the most part. Focally it is granular, hemorrhagic and contains cautery artifact. The gallbladder contains hemorrhagic bile and one ovoid, brownish-black stone measuring 1.2 x 1 x 1 cm. Multiple fragments of blood clots are also noted in the gallbladder. The mucosa is congested and hemorrhagic without any mass lesions. The gallbladder wall measures up to 0.5 cm in thickness. Art Consultant sections from the gallbladder and the cystic duct are submitted in one cassette. / SJ:vicky 04/11/2022 TC:2 CPT: 62169
[2022-04-08] MEDS: 0.9% Normal Saline 1,000 ML 125 ML IV ×3 (05:06→21:59)
[2022-04-08 06:16] LABS: Bedside Glucose 118 mg/dL (74-106)
[2022-04-08 06:30] LABS: Absolute Lymphocyte Count 1.78 X10^3/uL (0.83-4.51); Absolute Neutrophil Count 13.9 X10^3/uL (2.0-7.7); Basophil# 0.03 X10^3/uL; Basophil% 0.2 % (0-1); Eosinophil# 0.04 X10^3/uL; Eosinophils% 0.2 % (0-5); Hematocrit 28.8 % (37-47); Hemoglobin 8.3 g/dL (12.0-15.0); Lymphocyte # 1.78 X10^3/ul (0.83-4.51); Lymphocyte % 10.1 % (19-41); Mean Corp Hgb Conc 28.8 g/dL (32-36); Mean Corpuscular Hgb 19.7 pg (27.0-32.0); Mean Corpuscular Volume 68.2 fL (81-99); Mean Platelet Vol. 11.1 fl (6.2-12.0); Monocyte# 1.74 X10^3/uL; Monocyte% 9.9 % (0-10); NRBC Flagged by Analyzer 0 % (0-5); Neutrophil # 13.93 X10^3/uL (2.7-7.7); Neutrophil % 79.1 % (47-70); POSITIVE DIFFERENTIAL YES; POSITIVE MORPHOLOGY YES; Platelet Count 238 K/mm3 (150-450); RBC Distribution Width CV 21.1 % (11.6-14.6); Red Blood Count 4.22 M/mm3 (4.2-5.4); White Blood Count 17.6 K/mm3 (4.4-11.0)
[2022-04-08 06:35] LABS: Differential Indicated SCAN CRITERIA MET
[2022-04-08 06:41] LABS: International Normalized Ratio 1.4; Prothrombin Time (Protime)PT. 16.7 SECONDS (11.7-14.9)
[2022-04-08 06:52] LABS: Anisocytosis 3+; Microcytosis 3+
[2022-04-08 06:53] LABS: Atypical Lymphocyte 1+ %
[2022-04-08 07:07] LABS: ALB/GLOB Ratio 0.8 RATIO (0.9-2.4); AST(SGOT) 58 U/L (15-37); Alanine Aminotransfer ALT/SGPT 65 U/L (13-56); Albumin, Serum 2.5 g/dL (3.2-5.0); Alkaline Phosphatase 71 U/L (45-117); Anion Gap 4 (5-15); BUN 6 mg/dL (7-18); BUN/Creat Ratio 11.3 RATIO (10-20); Calcium,Total 8.1 mg/dL (8.5-10.1); Chloride 112 mmol/L (98-107); Creatinine, Serum 0.53 mg/dL (0.55-1.02); EST Glomerular Filtration Rate 122 mL/min (>60); Est Glom Filt Rate - Afr Amer 148 mL/min (>60); Estimated Creatinine Clearance 41.76 ml/min; Globulin 3.1 g/dL (2.2-4.2); Glucose 112 mg/dL (74-106); Potassium 3.3 mmol/L (3.5-5.1); Protein, Total 5.6 g/dL (6.4-8.2); Sodium Level 140 mmol/L (136-145)
--- NOTE | 2022-04-08 07:27 | PCM.PN.SRG ---
Subjective Subjective Patient seen and examined during AM rounds. She is found resting in bed. She arouses easily and states that she is somewhat nervous for surgery but otherwise she is doing okay. Objective Data Objective Data Vital Signs: Vital Signs Temp Pulse Resp BP Pulse Ox 98.5 F 74 16 150/77 H 95 04/08/22 02:00 04/08/22 02:00 04/08/22 02:00 04/08/22 02:00 04/08/22 02:00 Oxygen Delivery Method Room Air Weight: 170 lb 1.6 oz Body Mass Index (BMI) 32.1 Intake & Output: Intake and Output for Last 24 Hours 04/06/22 04/07/22 04/08/22 23:59 23:59 23:59 Intake Total 1050 / 1050 3468.33 / 3468.33 1048.33 / 1048.33 Output Total 0 / 0 Balance 1050 / 1050 3468.33 / 3468.33 1048.33 / 1048.33 Lab / Micro Data Result Diagrams: 04/08/22 06:04 04/08/22 06:04 Labs: Laboratory Results - last 24 hr 04/07/22 05:52: Hemoglobin A1c 5.4 04/07/22 11:51: POC Glucose 133 H 04/07/22 16:52: POC Glucose 129 H 04/07/22 21:57: POC Glucose 134 H 04/08/22 05:09: POC Glucose 118 H 04/08/22 06:04: WBC 17.6 H, RBC 4.22, Hgb 8.3 L, Hct 28.8 L, MCV 68.2 L D, MCH 19.7 L, MCHC 28.8 L, RDW Std Deviation 50.0 H, RDW Coeff of Tammie 21.1 H, Plt Count 238, MPV 11.1, Immature Gran % (Auto) 0.500, Neut % (Auto) 79.1 H, Lymph % (Auto) 10.1 L, Whitfield % (Auto) 9.9, Eos % (Auto) 0.2, Baso % (Auto) 0.2, Absolute Neuts (auto) 13.9 H, Absolute Lymphs (auto) 1.78, Nucleated RBC % 0, Diff Path Review May foll, Atypical Lymphocytes 1+, Anisocytosis 3+, Microcytosis 3+ 04/08/22 06:04: PT 16.7 H, INR 1.4 04/08/22 06:04: Sodium 140, Potassium 3.3 L, Chloride 112 H, Carbon Dioxide 24.0, Anion Gap 4 L, BUN 6 L, Creatinine 0.53 L, Estim Creat Clear Calc 41.76, Est GFR (MDRD) Af Amer 148, Est GFR (MDRD) Non-Af 122, BUN/Creatinine Ratio 11.3, Glucose 112 H, Calcium 8.1 L, Total Bilirubin 0.80, AST 58 H, ALT 65 H, Alkaline Phosphatase 71, Total Protein 5.6 L, Albumin 2.5 L, Globulin 3.1, Albumin/Globulin Ratio 0.8 L Micro: Microbiology 04/06/22 08:20 Nasal Secretion SARS-CoV-2 Antigen (Rapid) - Final 04/06/22 08:00 Stool Stool Occult Blood (RAJ) - Final Rhythm Strip Rhythm Strip: Sinus Rhythm Rate: 65 Ectopy: None Physical Exam Const oriented x3 GI GI Narrative: Nondistended, soft, tender to palpation right upper quadrant, otherwise unremarkable Assessment & Plan Assessment/Plan (1) Acute calculous cholecystitis: PLAN: Patient hospital day 2 for admission for acute cholecystitis. She denies any significant abdominal discomfort at rest, but continues to have right upper quadrant tenderness on exam. Her white count down trended somewhat today. Planning for laparoscopic cholecystectomy with probable intraoperative cholangiogram today. Given that her hemoglobin has down trended somewhat, I have ordered a type and screen as a precautionary measure. Neuro: As needed acetaminophen Pulm/CV: Incentive spirometer, hypertension to be addressed by hospitalist service FEN/GI: Patient hypokalemic again today?require replacement, but will also check magnesium. N.p.o. for surgery. CMP shows mild elevation of liver enzymes so we will pursue cholangiogram Heme/ID: Further anemia today?we will obtain type and screen as a precautionary measure. Patient's leukocytosis improved today with antibiotics. Continue antibiotics and plan for laparoscopic cholecystectomy Endo: Diabetes under management of hospitalist service Proph: Hold enoxaparin until appropriate postop Dispo: Continue inpatient stay
[2022-04-08 07:59] LABS: Magnesium 2.1 mg/dL (1.6-2.6)
--- NOTE | 2022-04-08 09:30 | RAD_ITS ---
STUDY: INTRAOPERATIVE CHOLANGIOGRAM. REASON FOR EXAM: Female, 66 years old. ABD PAIN FLUOROSCOPY TIME (if supplied): ( 35 seconds ) minutes/seconds. A cine loop of 178 images was submitted. TECHNIQUE: An intraoperative cholangiogram was performed by the surgeon. Imaging was submitted. COMPARISON: None. FINDINGS: The common bile duct is not dilated. No intraluminal filling defect is seen. There is free flow of contrast into the duodenum. The visualized central intrahepatic biliary ducts are unremarkable. RAD/Cholangiogram/ O R,Initial IMPRESSION: Unremarkable intraoperative cholangiogram. Electronically Signed: Wade Lind MD at 12:54 EDT ,
--- NOTE | 2022-04-08 09:58 | NURSING ---
off unit via bed for surgery. ac staff notifed ahead of time that pt has 4 kriders ordered.
[2022-04-08] MEDS: Potassium Chloride 10mEq/100mL 10 MEQ/100 ML IV.SOLN. 100 MEQ IV BOLUS ×4 (10:02→13:05)
--- NOTE | 2022-04-08 10:08 | PN.HOSP_ITS ---
Subjective Subjective Patient seen and examined. She has no active complaints. She is due for laparoscopic cholecystectomy today. Patient expresses anxiety about the procedure and was reassured. She has remained hemodynamically stable, and review of systems is otherwise negative. Objective Data Objective Data Vital Signs: Vital Signs Temp Pulse Resp BP Pulse Ox 98.5 F 74 16 150/77 H 95 04/08/22 02:00 04/08/22 02:00 04/08/22 02:00 04/08/22 02:00 04/08/22 02:00 Oxygen Delivery Method Room Air Weight: 170 lb 1.6 oz Body Mass Index (BMI) 32.1 Intake & Output: Intake and Output for Last 24 Hours 04/06/22 04/07/22 04/08/22 23:59 23:59 23:59 Intake Total 1050 / 1050 3468.33 / 3468.33 1098.33 / 1098.33 Output Total 0 / 0 Balance 1050 / 1050 3468.33 / 3468.33 1098.33 / 1098.33 Lab / Micro Data Result Diagrams: 04/08/22 06:04 04/08/22 06:04 Labs: Laboratory Results - last 24 hr 04/07/22 11:51: POC Glucose 133 H 04/07/22 16:52: POC Glucose 129 H 04/07/22 21:57: POC Glucose 134 H 04/08/22 05:09: POC Glucose 118 H 04/08/22 06:04: WBC 17.6 H, RBC 4.22, Hgb 8.3 L, Hct 28.8 L, MCV 68.2 L D, MCH 19.7 L, MCHC 28.8 L, RDW Std Deviation 50.0 H, RDW Coeff of Tammie 21.1 H, Plt Count 238, MPV 11.1, Immature Gran % (Auto) 0.500, Neut % (Auto) 79.1 H, Lymph % (Auto) 10.1 L, Richardson % (Auto) 9.9, Eos % (Auto) 0.2, Baso % (Auto) 0.2, Absolute Neuts (auto) 13.9 H, Absolute Lymphs (auto) 1.78, Nucleated RBC % 0, Diff Path Review May foll, Atypical Lymphocytes 1+, Anisocytosis 3+, Microcytosis 3+ 04/08/22 06:04: PT 16.7 H, INR 1.4 04/08/22 06:04: Sodium 140, Potassium 3.3 L, Chloride 112 H, Carbon Dioxide 24.0, Anion Gap 4 L, BUN 6 L, Creatinine 0.53 L, Estim Creat Clear Calc 41.76, Est GFR (MDRD) Af Amer 148, Est GFR (MDRD) Non-Af 122, BUN/Creatinine Ratio 11.3, Glucose 112 H, Calcium 8.1 L, Total Bilirubin 0.80, AST 58 H, ALT 65 H, Alkaline Phosphatase 71, Total Protein 5.6 L, Albumin 2.5 L, Globulin 3.1, Albumin/Globulin Ratio 0.8 L 04/08/22 06:04: Magnesium 2.1 Micro: Microbiology 04/06/22 08:20 Nasal Secretion SARS-CoV-2 Antigen (Rapid) - Final 04/06/22 08:00 Stool Stool Occult Blood (RAJ) - Final Rhythm Strip Rhythm Strip: Sinus Rhythm Rate: 65 Ectopy: None Physical Exam Const alert, oriented x3 and no apparent distress General Appearance: cooperative HEENT normocephalic, head/scalp atraumatic and hearing grossly normal bilaterally Eyes PERRL, EOMs intact bilaterally and conjunctivae normal Neck no lymphadenopathy, supple and no JVD Resp normal respiratory effort, no retractions, no use of accessory muscles and clear to auscultation bilaterally Auscultation: crackles Cardio regular rate, regular rhythm, S1 normal heart sound, S2 normal heart sound and no murmurs GI normal to inspection, nondistended, normoactive bowel sounds, soft to palpation and non-tender Auscultation: hyperactive bowel sounds and hypoactive bowel sounds Extremity normal to inspection, full ROM and no clubbing, cyanosis or edema Neuro oriented x3, CN's II-XII intact bilaterally, moves all extremities, no focal motor deficits and no sensory deficits noted Sensorium / Orientation: awake and alert Motor Exam: strength 5/5 throughout Psych affect normal Assessment & Plan Assessment/Plan (1) Acute calculous cholecystitis: PLAN: Plan #Acute cholecystitis * has gallstone stuck in the neck of the gallbladder with mild distension of the gallbladder lumen * general surgery evaluated patient and she is admitted to the general surgery service * management as per primary team general surgery * cfor laparoscopic cholecystectomy today. Currently NPO * #History of endometrial cancer * s/p robotic hysterectomy with bilateral salpingo-oophrectomy and lymph node sampling, followed by vaginal brachii therapy in 2015. * Says she had the surgery done at [facility] * also had exploratory laparotomy with repair of ventral hernia and debulking resection of t intra abdominal tumors, which were found to be metastatic adenocarcinoma with squamous differentiation. * on coumadin. 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 * on coumadin * coumadin currently on hold as she is going for surgery * * #Anemia * hronic. hb is 8. * her baseline Hb is 8-9. Likely due to her chronic conditions including cancer. * DVT prophylaxis: * on coumadin, which is on hold as she is going for surgery today. INR is 1.4 today * on lovenox 40mg daily. * Charges/Coding Visit Charges Inpatient E&M: 00757 Subs Hosp L2
[2022-04-08] MEDS: Bupivacaine Mpf 0.5% 30 ML VIAL (10:17)
[2022-04-08 10:40] LABS: Pathologist Review Reviewed
--- NOTE | 2022-04-08 13:25 | OP.PCM_ITS ---
Report of Operation Date of Procedure: 04/08/22 Pre-Operative Diagnosis: 1. Acute calculus cholecystitis 2. History of uterine cancer on immunotherapy Post-Operative Diagnosis: Same Surgery/Procedure Performed:: Laparoscopic cholecystectomy with intraoperative cholangiogram Description of Surgical Findings:: ? Cholangiogram showing antegrade filling of the common bile duct through to the duodenum as well as retrograde filling into the right and left hepatic ducts ? Moderate to severely inflamed gallbladder with normal anatomy Surgeon: Bobby Wray foxing cutting machine operator: Luanne Heredia foxing cutting machine operator: Jeanette John Type of Anesthesia: General/Supplemental Anesthesiologist: Ryder Solis Estimated Blood Loss (mL): 75 Description of Procedure: After proper identification in the preoperative holding area the patient was brought to the operating room where she was positioned supine on the operating room table. Preoperatively SCDs were placed (antibiotics have been previously administered as part of continuous therapy on the floor). General anesthesia was then induced. Patient's abdomen was prepped and draped in usual sterile fashion. A formal timeout was conducted to confirm both patient and the procedure. Given the patient's extensive prior abdominal surgery history, procedure was begun with a subxiphoid incision which was extended deeply down to the level of the fascia. The fascia was elevated and incised, as well as the pe ritoneum. A finger sweep was performed to ensure there were no underlying adhesions and a 12 mm balloon trocar was inserted. Pneumoperitoneum was established at 15 mmHg. Unfortunately our initial exploration revealed that we were in a fatty falciform ligament and had not yet entered the peritoneum. Therefore the trocar was removed and the opening was probed bluntly which permitted entry into the true peritoneal cavity. Inspection of the peritoneum revealed no inadvertent injury to the viscera below. There was a single loop of small bowel that was tethered to the patient's midline. 3 additional trocars were placed in the supraumbilical (12 mm) and in the right upper quadrant (2 x 5 mm). There was no clear window between the small bowel and the abdominal wall to lyse the adhesion, so this loop of bowel was left in place. The gallbladder was visualized with moderate to severe inflammation and was taut with edema and could not be grasped. Therefore the gallbladder decompressed with an aspiration needle using the suction upper cutter machine. The gallbladder fundus was then grasped and elevated cephalad. Using careful dissection the peritoneum was opened and the structures of the hepatocystic triangle were delineated. We were quickly able to identify the cystic duct and the cystic artery (beneath a large node of Calot), however, the hepatocystic triangle otherwise was collapsed against the cystic plate with inflammation. To get a better understanding of the patient's anatomy, I performed a intraoperative cholangiogram. The cystic duct was singly clipped distally and partially divided, then A cholangiocatheter was fed into the proximal segment of the cystic duct and clamped into place. A cholangiogram was then obtained showing a standard length cystic duct flowing into a common bile duct with unobstructed antegrade flow of contrast into the duodenum. There was also retrograde flow through the common hepatic duct into the right and left hepatic ducts. Satisfied with this result, the cholangiocatheter was withdrawn and the cystic duct was triply clipped and fully divided. The same process was used for the cystic artery. The gallbladder was then removed from the gallbladder fossa with the use of electrocautery. As we proceeded to the cystic plate, there was a tubular structure that extended towards the gallbladder and also back towards the liver. I was concerned this represented a superficial right hepatic artery with a aberrant posterior cystic artery. Therefore, I was careful to dissect this structure as it entered the gallbladder and clipped it proximally and divided it at the level of the gallbladder?leaving the structure entering the liver untouched. With this complete, the gallbladder was then easily able to separate from the gallbladder fossa and selective electrocautery was used to obtain hemostasis in the gallbladder fossa. There is still some slight oozing near where the gallbladder infundibulum had been so I elected to place a small swatch of fibrillar hemostatic agent in this position. Then the gallbladder was fully removed from the gallbladder fossa and was placed in an Endo Catch bag and removed from the peritoneum. Morison's pouch was irrigated and the effluent was suctioned free of the peritoneum. Hemostasis was again confirmed. Patient's subxiphoid port site was closed with a Arnoldo Rose suture passer and 0 PDS in a [id number] fashion. Pneumoperitoneum was evacuated and the fascia of the supraumbilical 12 mm port site was closed with #1Vicryl in a [id number] fashion. A total of 28 mL of anesthetic was injected at the port sites for postoperative pain control. The skin of each port site was then closed in subcuticular fashion using 4-0 Monocryl. Steri- Strips and bandages were applied as dressings. Patient tolerated the procedure well without any apparent complications. On emergence from their anesthetic the patient was taken to PACU for ongoing recovery. Complications None Admit VTE Documentation VTE Mechan Device Prophylaxis: SCD's Procedures Digestive 40xxx-49xxx: 33365 Laparo cholecystectomy/graph
[2022-04-08 13:54] LABS: Pathologist Review Reviewed
[2022-04-08 15:10] LABS: Bedside Glucose 154 mg/dL (74-106)
--- NOTE | 2022-04-08 16:13 | DCINST_ITS ---
Discharge Instructions Activity Discharge Activity: May Not Drive (May not drive while taking narcotic pain medications) and May Shower (May begin showering 48hours postop. Please avoid baths or submerging surgical incisions before skin is completely healed.) May shower in (days): 2 May resume sexual activity in: 2 weeks Ice area for (Minutes): 20 Lifting Restrictions: Limit lifting to <15lbs for 2 weeks following surgery Dressing / Incision Call your doctor if your incision/area has: Sudden Increased Bleeding, Increased Pain/ Swelling, Increased Redness, Foul Smelling Discharge and Swelling at the incision site Call your doctor if you observe: Fever of 101 or Higher, Inability to urinate, Inability to have a bowel movement and Uncontrolled pain Suture Line Care: Avoid Pulling/Pushing Remove Dressing in: 2 days (Please leave steri strips (medical tape) in place until they fall off spontaneously or are removed at your follow-up appointment) Cleanse incision/area with: Keep Dressing Clean & Dry Follow Up Care Please Follow Up With: Bobby Wray MD When: 7-10 days postop Test Results: Test results from this visit will be discussed in further detail at your follow- up appointment, if applicable. Discharge Plan Admission Admit Date/Time: 04/06/22 17:39 Primary Reason for Your Visit: Acute cholecystitis Attending Provider: Bobby Wray Primary Care Provider: Gagandeep Charles Consulting Providers: Erica Edouard Instructions Patient Instructions: After Gallbladder Surgery Discharge Orders/Prescriptions Prescriptions: New oxycodone 5 mg Tablet 5 mg PO Q6H PRN PRN (Reason: Pain Score 6-10) 5 Days Qty: 20 0RF Continued valsartan 80 MG tablet 80 mg PO DAILY lorazepam 0.5 MG tablet 0.5 mg PO Q8H PRN PRN (Reason: Anxiety) lansoprazole 30 MG capsule 30 mg PO DAILY PRN (Reason: gerd) ondansetron 4 MG tablet 4 mg PO Q8H PRN PRN (Reason: Nausea) Qty: 10 0RF potassium chloride 20 mEq tablet,ER particles/crystals 20 meq PO DAILY Label Comments: take 1 tablet by mouth once daily nystatin 100,000 unit/gram cream 1 applic TOPICAL DAILY Label Comments: APPLY TOPICALLY TWICE DAILY NEEDED FOR VULVAR IRRITATION OR ITCHING No Action warfarin 2.5 MG tablet 2.5 mg PO DAILY Rx Instructions: . Referrals / Follow Up: Gagandeep Charles MD [Primary Care Provider] - Disposition Disposition (needs filled in before D/C Order can be placed): Home, Self Care
[2022-04-08] MEDS: Losartan Potassium 25 MG Tablet PO (16:35)
[2022-04-08] MEDS: 0.9% Saline Lock 10 ML Syringe IV (16:35)
[2022-04-08] MEDS: oxyCODONE 5 MG Tablet PO ×2 (16:36→22:36)
[2022-04-08] MEDS: Acetaminophen 500 MG Tablet PO ×2 (16:36→22:36)
[2022-04-08 16:45] LABS: Bedside Glucose 135 mg/dL (74-106)
[2022-04-08] MEDS: LORazepam 0.5 MG Tablet PO (21:52)
[2022-04-09 00:18] VITALS: BP 148/67; PULSE 75; RESP 16; TEMP 36.6; O2SAT 95
[2022-04-09 04:18] VITALS: BP 139/81; PULSE 78; RESP 16; TEMP 36.8; O2SAT 97
[2022-04-09] MEDS: Acetaminophen 500 MG Tablet PO (04:40)
[2022-04-09] MEDS: oxyCODONE 5 MG Tablet PO ×3 (04:41→16:03)
[2022-04-09 04:46] LABS: Bedside Glucose 110 mg/dL (74-106)
[2022-04-09] MEDS: 0.9% Normal Saline 1,000 ML 125 ML IV (06:00)
[2022-04-09 06:30] LABS: Bedside Glucose 117 mg/dL (74-106)
[2022-04-09 06:31] LABS: Absolute Lymphocyte Count 1.71 X10^3/uL (0.83-4.51); Basophil# 0.02 X10^3/uL; Basophil% 0.1 % (0-1); Eosinophil# 0.01 X10^3/uL; Eosinophils% 0.1 % (0-5); Hematocrit 29.2 % (37-47); Hemoglobin 8.6 g/dL (12.0-15.0); Lymphocyte # 1.71 X10^3/ul (0.83-4.51); Lymphocyte % 9.2 % (19-41); Mean Corp Hgb Conc 29.5 g/dL (32-36); Mean Corpuscular Hgb 19.5 pg (27.0-32.0); Mean Corpuscular Volume 66.2 fL (81-99); Monocyte# 1.72 X10^3/uL; Monocyte% 9.2 % (0-10); NRBC Flagged by Analyzer 0.1 % (0-5); Neutrophil # 14.99 X10^3/uL (2.7-7.7); Neutrophil % 80.5 % (47-70); POSITIVE DIFFERENTIAL YES; POSITIVE MORPHOLOGY YES; Platelet Count 253 K/mm3 (150-450); RBC Distribution Width CV 21.4 % (11.6-14.6); RBC Distribution Width SD 49.4 fl (35.1-43.9); Red Blood Count 4.41 M/mm3 (4.2-5.4); White Blood Count 18.6 K/mm3 (4.4-11.0)
[2022-04-09 06:39] LABS: Differential Indicated SCAN CRITERIA MET
[2022-04-09 06:54] LABS: Differential Comment SCANNED; Polychromasia 1+
[2022-04-09 06:55] LABS: Ovalocyte 1+
[2022-04-09 06:57] LABS: Anisocytosis 2+; Microcytosis 2+
[2022-04-09 06:58] LABS: ALB/GLOB Ratio 0.7 RATIO (0.9-2.4); AST(SGOT) 68 U/L (15-37); Alanine Aminotransfer ALT/SGPT 88 U/L (13-56); Albumin, Serum 2.6 g/dL (3.2-5.0); Alkaline Phosphatase 77 U/L (45-117); Anion Gap 5 (5-15); BUN 7 mg/dL (7-18); BUN/Creat Ratio 14.9 RATIO (10-20); Calcium,Total 8.4 mg/dL (8.5-10.1); Chloride 111 mmol/L (98-107); Creatinine, Serum 0.47 mg/dL (0.55-1.02); EST Glomerular Filtration Rate 141 mL/min (>60); Est Glom Filt Rate - Afr Amer 170 mL/min (>60); Estimated Creatinine Clearance 41.76 ml/min; Globulin 3.6 g/dL (2.2-4.2); Glucose 106 mg/dL (74-106); Potassium 3.6 mmol/L (3.5-5.1); Protein, Total 6.2 g/dL (6.4-8.2); Sodium Level 141 mmol/L (136-145)
--- NOTE | 2022-04-09 06:59 | PN.SURG_ITS ---
Subjective Subjective Patient notes that she tolerated clears. No nausea or vomiting overnight. Abdominal pain controlled on meds. Objective Data Objective Data Vital Signs: Vital Signs Temp Pulse Resp BP Pulse Ox 98.2 F 78 16 139/81 H 97 04/09/22 04:18 04/09/22 04:18 04/09/22 04:18 04/09/22 04:18 04/09/22 04:18 Oxygen Flow Rate (L/min) 2 Oxygen Delivery Method Room Air Weight: 170 lb 1.6 oz Body Mass Index (BMI) 32.1 Intake & Output: Intake and Output for Last 24 Hours 04/07/22 04/08/22 04/09/22 23:59 23:59 23:59 Intake Total 3468.33 / 3468.33 3504.58 / 3504.58 1050 / 1050 Output Total 700 / 700 Balance 3468.33 / 3468.33 2804.58 / 2804.58 1050 / 1050 Lab / Micro Data Result Diagrams: 04/09/22 05:58 04/09/22 05:58 Labs: Laboratory Results - last 24 hr 04/07/22 05:52: Diff Path Review Reviewed 04/08/22 06:04: Diff Path Review Reviewed 04/08/22 06:04: Sodium 140, Potassium 3.3 L, Chloride 112 H, Carbon Dioxide 24.0, Anion Gap 4 L, BUN 6 L, Creatinine 0.53 L, Estim Creat Clear Calc 41.76, Est GFR (MDRD) Af Amer 148, Est GFR (MDRD) Non-Af 122, BUN/Creatinine Ratio 11.3, Glucose 112 H, Calcium 8.1 L, Total Bilirubin 0.80, AST 58 H, ALT 65 H, Alkaline Phosphatase 71, Total Protein 5.6 L, Albumin 2.5 L, Globulin 3.1, Albumin/Globulin Ratio 0.8 L 04/08/22 06:04: Magnesium 2.1 04/08/22 07:35: Blood Type B POSITIVE, Antibody Screen NEGATIVE 04/08/22 14:40: POC Glucose 154 H 04/08/22 16:33: POC Glucose 135 H 04/08/22 21:50: POC Glucose 110 H 04/09/22 05:58: WBC 18.6 H, RBC 4.41, Hgb 8.6 L, Hct 29.2 L, MCV 66.2 L, MCH 19.5 L, MCHC 29.5 L, RDW Std Deviation 49.4 H, RDW Coeff of Tammie 21.4 H, Plt Count 253, Immature Gran % (Auto) 0.900, Neut % (Auto) 80.5 H, Lymph % (Auto) 9.2 L, Hitchcock % (Auto) 9.2, Eos % (Auto) 0.1, Baso % (Auto) 0.1, Absolute Neuts (auto) 15.0 H, Absolute Lymphs (auto) 1.71, Nucleated RBC % 0.1, Differential Comment SCANNED, Diff Path Review May foll, Polychromasia 1+, Anisocytosis 2+, Microcytosis 2+, Ovalocytes 1+ 04/09/22 05:58: Sodium 141, Potassium 3.6, Chloride 111 H, Carbon Dioxide 25.0, Anion Gap 5, BUN 7, Creatinine 0.47 L, Estim Creat Clear Calc 41.76, Est GFR (MDRD) Af Amer 170, Est GFR (MDRD) Non-Af 141, BUN/Creatinine Ratio 14.9, Glucose 106, Calcium 8.4 L, Total Bilirubin 0.50, AST 68 H, ALT 88 H, Alkaline Phosphatase 77, Total Protein 6.2 L, Albumin 2.6 L, Globulin 3.6, Albumin/Globulin Ratio 0.7 L 04/09/22 06:24: POC Glucose 117 H Micro: Microbiology 04/06/22 08:20 Nasal Secretion SARS-CoV-2 Antigen (Rapid) - Final 04/06/22 08:00 Stool Stool Occult Blood (RAJ) - Final Radiography Diagnostic Testing: Radiology Impression Cholangiogram 04/08/22 09:30 IMPRESSION: Unremarkable intraoperative cholangiogram. Electronically Signed: Wade Lind MD at 12:54 EDT , Rhythm Strip Rhythm Strip: Sinus Rhythm Rate: 65 Ectopy: None Physical Exam Const oriented x3 Resp normal respiratory effort Cardio regular rate and regular rhythm GI soft to palpation and non-tender Assessment & Plan Assessment/Plan (1) Acute calculous cholecystitis: PLAN: Patient doing well after laparoscopic cholecystectomy. I will advance diet to regular diet. If she tolerates that she may be discharged home later today. Resume Coumadin tomorrow. Ervin William MD Pager: [facility] [address] [place] [address] [address] [place] [address] Office:
--- NOTE | 2022-04-09 07:01 | DS.PCM_ITS ---
Providers Date of Admission: 04/06/22 Primary Care Physician: Dr. Gagandeep Charles MD Reason For Visit: ACUTE CHOLECYSTITIS Diagnosis Discharge Diagnosis (1) Acute calculous cholecystitis: Status: Acute Code(s): K80.00 - Calculus of gallbladder with acute cholecystitis without obstruction Medications at Discharge Home Medications lansoprazole 30 mg capsule,delayed release 30 mg PO DAILY PRN gerd 01/24/21 lorazepam 0.5 mg tablet 0.5 mg PO Q8H PRN PRN Anxiety 01/24/21 valsartan 80 mg tablet 80 mg PO DAILY htn 01/24/21 warfarin 2.5 mg tablet 2.5 mg PO DAILY 01/24/21 ondansetron 4 mg disintegrating tablet 4 mg PO Q8H PRN PRN Nausea #10 tabs 04/15/21 nystatin 100,000 unit/gram topical cream 1 applic topical DAILY skin 04/06/22 potassium chloride 20 mEq tablet,extended release(part/cryst) 20 meq PO DAILY 04/06/22 oxycodone 5 mg tablet 5 mg PO Q6H PRN PRN Pain Score 6-10 5 days #20 tabs 04/08/22 Hospital Course Operations cholecystecomy Summary of Care Provided Hospital Course: Patient was admitted and her Coumadin was held and then she was taken for laparoscopic cholecystectomy. She tolerated the procedure well. Following day she was advanced on her diet and will be discharged home once tolerating diet. Weight / BMI Weight Weight: 170 lb 1.6 oz Body Mass Index (BMI) 32.1 ABG / Lab / Microbiology Data Result Diagrams: 04/09/22 05:58 04/09/22 05:58 Laboratory: Laboratory Results - last 24 hr 04/07/22 05:52: Diff Path Review Reviewed 04/08/22 06:04: Diff Path Review Reviewed 04/08/22 06:04: Sodium 140, Potassium 3.3 L, Chloride 112 H, Carbon Dioxide 24.0, Anion Gap 4 L, BUN 6 L, Creatinine 0.53 L, Estim Creat Clear Calc 41.76, Est GFR (MDRD) Af Amer 148, Est GFR (MDRD) Non-Af 122, BUN/Creatinine Ratio 11.3, Glucose 112 H, Calcium 8.1 L, Total Bilirubin 0.80, AST 58 H, ALT 65 H, Alkaline Phosphatase 71, Total Protein 5.6 L, Albumin 2.5 L, Globulin 3.1, Albumin/Globulin Ratio 0.8 L 04/08/22 06:04: Magnesium 2.1 04/08/22 07:35: Blood Type B POSITIVE, Antibody Screen NEGATIVE 04/08/22 14:40: POC Glucose 154 H 04/08/22 16:33: POC Glucose 135 H 04/08/22 21:50: POC Glucose 110 H 04/09/22 05:58: WBC 18.6 H, RBC 4.41, Hgb 8.6 L, Hct 29.2 L, MCV 66.2 L, MCH 19.5 L, MCHC 29.5 L, RDW Std Deviation 49.4 H, RDW Coeff of Tammie 21.4 H, Plt Count 253, Immature Gran % (Auto) 0.900, Neut % (Auto) 80.5 H, Lymph % (Auto) 9.2 L, [place] % (Auto) 9.2, Eos % (Auto) 0.1, Baso % (Auto) 0.1, Absolute Neuts (auto) 15.0 H, Absolute Lymphs (auto) 1.71, Nucleated RBC % 0.1, Differential Comment SCANNED, Diff Path Review May foll, Polychromasia 1+, Anisocytosis 2+, Microcytosis 2+, Ovalocytes 1+ 04/09/22 05:58: Sodium 141, Potassium 3.6, Chloride 111 H, Carbon Dioxide 25.0, Anion Gap 5, BUN 7, Creatinine 0.47 L, Estim Creat Clear Calc 41.76, Est GFR (MDRD) Af Amer 170, Est GFR (MDRD) Non-Af 141, BUN/Creatinine Ratio 14.9, Glucose 106, Calcium 8.4 L, Total Bilirubin 0.50, AST 68 H, ALT 88 H, Alkaline Phosphatase 77, Total Protein 6.2 L, Albumin 2.6 L, Globulin 3.6, Albumin/Globulin Ratio 0.7 L 04/09/22 06:24: POC Glucose 117 H Microbiology: Microbiology 04/06/22 08:20 Nasal Secretion SARS-CoV-2 Antigen (Rapid) - Final 04/06/22 08:00 Stool Stool Occult Blood (RAJ) - Final Radiography Diagnostic Testing: Radiology Impression Cholangiogram 04/08/22 09:30 IMPRESSION: Unremarkable intraoperative cholangiogram. Electronically Signed: Wade Lind MD at 12:54 EDT , D/C Instructions Discharge Diet: Light diet - advance as tolerated May shower in (days): 1 Lifting Restricted to (Lbs): 20 Lifting Restrictions: 20 lbs until follow up Additional Activity Instructions: Resume coumadin monday Call your doctor if your incision/area has: Sudden Increased Bleeding, Increased Pain/ Swelling, Increased Redness, Foul Smelling Discharge and Swelling at the incision site Call your doctor if you observe: Fever of 101 or Higher, Inability to urinate, Inability to have a bowel movement and Uncontrolled pain Suture Line Care: Avoid Pulling/Pushing Change Dressing in: 2 days (Remove dressings in 2 days, remove steri strips in 7-10 days) Cleanse incision/area with: Soap & Water and Keep Dressing Clean & Dry Please Follow Up With: Bobby Wray MD When: 7-10 days postop Meaningful Use Info Meaningful Use Diagnoses (Choose all that apply): None applicable Discharge Plan Admission Admit Date/Time: 04/06/22 17:39 Primary Reason for Your Visit: Acute cholecystitis Attending Provider: Bobby Wray Primary Care Provider: Gagandeep Cahrles Consulting Providers: Erica Edouard Instructions Patient Instructions: After Gallbladder Surgery Discharge Orders/Prescriptions Prescriptions: New oxycodone 5 mg Tablet 5 mg PO Q6H PRN PRN (Reason: Pain Score 6-10) 5 Days Qty: 20 0RF Continued valsartan 80 MG tablet 80 mg PO DAILY lorazepam 0.5 MG tablet 0.5 mg PO Q8H PRN PRN (Reason: Anxiety) lansoprazole 30 MG capsule 30 mg PO DAILY PRN (Reason: gerd) ondansetron 4 MG tablet 4 mg PO Q8H PRN PRN (Reason: Nausea) Qty: 10 0RF potassium chloride 20 mEq tablet,ER particles/crystals 20 meq PO DAILY Label Comments: take 1 tablet by mouth once daily nystatin 100,000 unit/gram cream 1 applic TOPICAL DAILY Label Comments: APPLY TOPICALLY TWICE DAILY NEEDED FOR VULVAR IRRITATION OR ITCHING No Action warfarin 2.5 MG tablet 2.5 mg PO DAILY Rx Instructions: . Referrals / Follow Up: Gagandeep Charles MD [Primary Care Provider] - Disposition Disposition (needs filled in before D/C Order can be placed): Home, Self Care
[2022-04-09 07:59] VITALS: BP 165/86; PULSE 70; RESP 18; TEMP 36.6; O2SAT 96
[2022-04-09] MEDS: Potassium Chloride Oral Tablet 20 MEQ PO (08:04)
[2022-04-09] MEDS: Losartan Potassium 25 MG Tablet PO (08:04)
--- NOTE | 2022-04-09 10:17 | PN.HOSP_ITS ---
Subjective Subjective Patient seen and examined. She complained of feeling uncomfortable. She says she wasnt able to sleep much overnight because her IV machine kept beeping. Patient is due to discharge by general surgery the primary team the patient states she feels weak. She says she does not have anyone to help her at home. She is also refusing placement and says she has an admission lady who lives a few miles from her initial which also it seems she can help her at home. She has remained hemodynamically stable. Objective Data Objective Data Vital Signs: Vital Signs Temp Pulse Resp BP Pulse Ox 97.8 F 70 18 165/86 H 96 04/09/22 07:59 04/09/22 07:59 04/09/22 07:59 04/09/22 07:59 04/09/22 07:59 Oxygen Flow Rate (L/min) 2 Oxygen Delivery Method Room Air Weight: 170 lb 1.6 oz Body Mass Index (BMI) 32.1 Intake & Output: Intake and Output for Last 24 Hours 04/07/22 04/08/22 04/09/22 23:59 23:59 23:59 Intake Total 3468.33 / 3468.33 3504.58 / 3504.58 1050 / 1050 Output Total 700 / 700 Balance 3468.33 / 3468.33 2804.58 / 2804.58 1050 / 1050 Lab / Micro Data Result Diagrams: 04/09/22 05:58 04/09/22 05:58 Labs: Laboratory Results - last 24 hr 04/07/22 05:52: Diff Path Review Reviewed 04/08/22 06:04: Diff Path Review Reviewed 04/08/22 07:35: Blood Type B POSITIVE, Antibody Screen NEGATIVE 04/08/22 14:40: POC Glucose 154 H 04/08/22 16:33: POC Glucose 135 H 04/08/22 21:50: POC Glucose 110 H 04/09/22 05:58: WBC 18.6 H, RBC 4.41, Hgb 8.6 L, Hct 29.2 L, MCV 66.2 L, MCH 19.5 L, MCHC 29.5 L, RDW Std Deviation 49.4 H, RDW Coeff of Tammie 21.4 H, Plt Count 253, Immature Gran % (Auto) 0.900, Neut % (Auto) 80.5 H, Lymph % (Auto) 9.2 L, [place] % (Auto) 9.2, Eos % (Auto) 0.1, Baso % (Auto) 0.1, Absolute Neuts (auto) 15.0 H, Absolute Lymphs (auto) 1.71, Nucleated RBC % 0.1, Differential Comment SCANNED, Diff Path Review May foll, Polychromasia 1+, Anisocytosis 2+, Microcytosis 2+, Ovalocytes 1+ 04/09/22 05:58: Sodium 141, Potassium 3.6, Chloride 111 H, Carbon Dioxide 25.0, Anion Gap 5, BUN 7, Creatinine 0.47 L, Estim Creat Clear Calc 41.76, Est GFR (MDRD) Af Amer 170, Est GFR (MDRD) Non-Af 141, BUN/Creatinine Ratio 14.9, Glucose 106, Calcium 8.4 L, Total Bilirubin 0.50, AST 68 H, ALT 88 H, Alkaline Phosphatase 77, Total Protein 6.2 L, Albumin 2.6 L, Globulin 3.6, Albumin/Globulin Ratio 0.7 L 04/09/22 06:24: POC Glucose 117 H Micro: Microbiology 04/06/22 08:20 Nasal Secretion SARS-CoV-2 Antigen (Rapid) - Final 04/06/22 08:00 Stool Stool Occult Blood (RAJ) - Final Radiography Diagnostic Testing: Radiology Impression Cholangiogram 04/08/22 09:30 IMPRESSION: Unremarkable intraoperative cholangiogram. Electronically Signed: Wade Lind MD at 12:54 EDT , Rhythm Strip Rhythm Strip: Sinus Rhythm Rate: 65 Ectopy: None Physical Exam Const alert, oriented x3 and no apparent distress General Appearance: cooperative HEENT normocephalic, head/scalp atraumatic, hearing grossly normal bilaterally and moist oral mucous membranes Eyes PERRL, EOMs intact bilaterally and conjunctivae normal Neck no lymphadenopathy, supple and no JVD Resp normal respiratory effort, no retractions, no use of accessory muscles and clear to auscultation bilaterally Auscultation: crackles Cardio regular rate, regular rhythm, S1 normal heart sound, S2 normal heart sound and no murmurs GI normal to inspection, nondistended, normoactive bowel sounds, soft to palpation and non-tender GI Narrative: intact dressing over laparoscopic cholesytectomy site Auscultation: hyperactive bowel sounds and hypoactive bowel sounds Extremity normal to inspection, full ROM and no clubbing, cyanosis or edema Neuro oriented x3, CN's II-XII intact bilaterally, moves all extremities, no focal motor deficits and no sensory deficits noted Sensorium / Orientation: awake and alert Motor Exam: strength 5/5 throughout Psych affect normal Assessment & Plan Assessment/Plan (1) Acute calculous cholecystitis: PLAN: Plan #Acute cholecystitis * has gallstone stuck in the neck of the gallbladder with mild distension of the gallbladder lumen * s/p laparoscopic cholecystectomy. Today is pOD 1 * management as per primary team * * #History of endometrial cancer * s/p robotic hysterectomy with bilateral salpingo-oophrectomy and lymph node sampling, followed by vaginal brachii therapy in 2014. * Says she had the surgery done at [facility] * also had exploratory laparotomy with repair of ventral hernia and debulking resection of t intra abdominal tumors, which were found to be metastatic adenocarcinoma with squamous differentiation. * on coumadin. 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 * on coumadin * to resume coumadin today if ok with general surgery * WIll need follow up with PCP to ensure coumadin is in therapeutic range * #Anemia * chronic. hb is 8. * her baseline Hb is 8-9. Likely due to her chronic conditions including cancer. * DVT prophylaxis: * on coumadin. resume coumadin today and on discharge. * * Disposition: ok for dc from hospitalist standpoint. Charges/Coding Visit Charges Inpatient E&M: 09486 Subs Hosp L2
[2022-04-09 11:11] LABS: Bedside Glucose 91 mg/dL (74-106)
[2022-04-09 12:17] VITALS: BP 154/84; PULSE 75; RESP 20; TEMP 36.4; O2SAT 95
[2022-04-09 14:51] VITALS: BP 167/74; PULSE 76; RESP 16; TEMP 36.5; O2SAT 97
[2022-04-11 13:31] LABS: Pathologist Review Reviewed
== END 2022-04-09 16:18 | disposition home or self-care (01) | DRG 419 ==
LOC: ED 16:16 → MS3 17:13
PROVIDERS: Anesthesiology; Student in an Organized Health Care Education/Training Program; Admitting Provider Surgery; Emergency Provider Emergency Medicine; PCP Obstetrics & Gynecology Gynecologic Oncology; Visit Provider Surgery
PROC: (CPT 47610; principal; 2022-04-08 10:10)
DX: K80.12 Calculus of gallbladder with acute and chronic cholecystitis without obstruction (principal); E11.9 Type 2 diabetes mellitus without complications; E03.9 Hypothyroidism, unspecified; K21.9 Gastro-esophageal reflux disease without esophagitis; K82.8 Other specified diseases of gallbladder; I10 Essential (primary) hypertension; E87.6 Hypokalemia; Z79.01 Long term (current) use of anticoagulants; Z79.899 Other long term (current) drug therapy; Z85.42 Personal history of malignant neoplasm of other parts of uterus; Z90.710 Acquired absence of both cervix and uterus; Z79.890 Hormone replacement therapy
CPT/HCPCS: 47563; 00790; 36415; 71045; 74176; 74300; 76000; 76705; 80053; 81001; 82274; 82962; 83036; 83690; 83735; 84484; 85025; 85610; 86850; 86900; 86901; 87811; 88304; 93005; 96365; 96366; 96368; 96375; 96376; 99221; 99251; 99252; 99284; J7030; J7040; J7120; Q9967; A4216; G0378; G0463; J2405

== ENCOUNTER 2022-04-20 10:36 | Outpatient (RCR) | payer MEDICARE, SELFPAY ==
[2022-03-30 14:31] LABS: Absolute Lymphocyte Count 2.59 X10^3/uL (0.83-4.51); Absolute Neutrophil Count 3.4 X10^3/uL (2.0-7.7); Basophil# 0.04 X10^3/uL; Basophil% 0.5 % (0-1); Differential Indicated SCAN CRITERIA MET; Eosinophil# 0.73 X10^3/uL; Eosinophils% 9.7 % (0-5); Hematocrit 34.5 % (37-47); Hemoglobin 9.9 g/dL (12.0-15.0); Lymphocyte # 2.59 X10^3/ul (0.83-4.51); Lymphocyte % 34.3 % (19-41); Mean Corp Hgb Conc 28.7 g/dL (32-36); Mean Corpuscular Hgb 19.2 pg (27.0-32.0); Mean Corpuscular Volume 66.9 fL (81-99); Mean Platelet Vol. 11.1 fl (6.2-12.0); Monocyte# 0.79 X10^3/uL; Monocyte% 10.5 % (0-10); NRBC Flagged by Analyzer 0 % (0-5); POSITIVE MORPHOLOGY YES; Platelet Count 314 K/mm3 (150-450); RBC Distribution Width CV 20.6 % (11.6-14.6); RBC Distribution Width SD 47.9 fl (35.1-43.9); Red Blood Count 5.16 M/mm3 (4.2-5.4); White Blood Count 7.6 K/mm3 (4.4-11.0)
[2022-03-30 14:39] LABS: Prothrombin Time (Protime)PT. 52.6 SECONDS (11.7-14.9)
[2022-03-30 14:45] LABS: Platelet Estimate ADEQUATE (ADEQ)
[2022-03-30 14:46] LABS: Microcytosis 1+
[2022-03-30 15:09] LABS: ALB/GLOB Ratio 1.3 RATIO (0.9-2.4); AST(SGOT) 12 U/L (15-37); Alanine Aminotransfer ALT/SGPT 21 U/L (13-56); Albumin, Serum 3.9 g/dL (3.2-5.0); Alkaline Phosphatase 66 U/L (45-117); Anion Gap 8 (5-15); BUN 6 mg/dL (7-18); Chloride 109 mmol/L (98-107); Creatinine, Serum 0.67 mg/dL (0.55-1.02); EST Glomerular Filtration Rate 94 mL/min (>60); Est Glom Filt Rate - Afr Amer 114 mL/min (>60); Globulin 3.1 g/dL (2.2-4.2); Glucose 101 mg/dL (74-106); Potassium 3.4 mmol/L (3.5-5.1); Sodium Level 143 mmol/L (136-145); Thyroid Stim Hormone (TSH) 0.37 uIU/mL (0.358-3.74)
[2022-03-30 15:46] LABS: International Normalized Ratio 5.9
[2022-04-20 11:15] LABS: International Normalized Ratio 2.2; Prothrombin Time (Protime)PT. 24.1 SECONDS (11.7-14.9)
== END 2022-04-21 23:59 ==
LOC: PAVLAB 10:36
PROVIDERS: PCP Obstetrics & Gynecology Gynecologic Oncology; Referring Provider Family Medicine; Visit Provider Family Medicine
DX: C54.1 Malignant neoplasm of endometrium (principal); K55.069 Acute infarction of intestine, part and extent unspecified; Z79.899 Other long term (current) drug therapy; E07.9 Disorder of thyroid, unspecified; Z51.11 Encounter for antineoplastic chemotherapy
CPT/HCPCS: 36415; 80053; 84443; 85025; 85610

== ENCOUNTER 2022-05-11 10:00 | Outpatient (RCR) | payer MEDICARE, SELFPAY ==
[2022-05-11 10:26] LABS: Absolute Lymphocyte Count 2.86 X10^3/uL (0.83-4.51); Absolute Neutrophil Count 4.9 X10^3/uL (2.0-7.7); Basophil# 0.05 X10^3/uL; Basophil% 0.5 % (0-1); Eosinophil# 1.03 X10^3/uL; Eosinophils% 10.7 % (0-5); Hematocrit 34.5 % (37-47); Hemoglobin 9.9 g/dL (12.0-15.0); Lymphocyte # 2.86 X10^3/ul (0.83-4.51); Lymphocyte % 29.6 % (19-41); Mean Corp Hgb Conc 28.7 g/dL (32-36); Mean Corpuscular Hgb 19.8 pg (27.0-32.0); Mean Platelet Vol. 10.9 fl (6.2-12.0); Monocyte# 0.74 X10^3/uL; Monocyte% 7.7 % (0-10); NRBC Flagged by Analyzer 0 % (0-5); Neutrophil # 4.94 X10^3/uL (2.7-7.7); Neutrophil % 51.2 % (47-70); POSITIVE MORPHOLOGY YES; Platelet Count 267 K/mm3 (150-450); RBC Distribution Width SD 52.5 fl (35.1-43.9); White Blood Count 9.7 K/mm3 (4.4-11.0)
[2022-05-11 10:33] LABS: International Normalized Ratio 2.3; Prothrombin Time (Protime)PT. 24.6 SECONDS (11.7-14.9)
[2022-05-11 10:47] LABS: Differential Indicated SCAN CRITERIA MET
[2022-05-11 10:56] LABS: Anisocytosis 2+; Differential Comment SCANNED; Microcytosis 2+
[2022-05-11 11:04] LABS: ALB/GLOB Ratio 1.1 RATIO (0.9-2.4); AST(SGOT) 13 U/L (15-37); Alanine Aminotransfer ALT/SGPT 19 U/L (13-56); Albumin, Serum 3.5 g/dL (3.2-5.0); Alkaline Phosphatase 71 U/L (45-117); Anion Gap 7 (5-15); BUN 7 mg/dL (7-18); BUN/Creat Ratio 9.5 RATIO (10-20); Calcium,Total 8.6 mg/dL (8.5-10.1); Chloride 110 mmol/L (98-107); Creatinine, Serum 0.74 mg/dL (0.55-1.02); EST Glomerular Filtration Rate 84 mL/min (>60); Est Glom Filt Rate - Afr Amer 102 mL/min (>60); Globulin 3.3 g/dL (2.2-4.2); Glucose 119 mg/dL (74-106); Potassium 3.7 mmol/L (3.5-5.1); Protein, Total 6.8 g/dL (6.4-8.2); Sodium Level 142 mmol/L (136-145); Thyroid Stim Hormone (TSH) 0.28 uIU/mL (0.358-3.74)
== END 2022-05-22 23:59 ==
LOC: PAVLAB 10:00
PROVIDERS: PCP Obstetrics & Gynecology Gynecologic Oncology; Referring Provider Family Medicine; Visit Provider Family Medicine
DX: C54.1 Malignant neoplasm of endometrium (principal); K55.069 Acute infarction of intestine, part and extent unspecified; Z79.899 Other long term (current) drug therapy
CPT/HCPCS: 36415; 80053; 84443; 85025; 85610

== ENCOUNTER 2022-06-22 10:53 | Outpatient (RCR) | payer MEDICARE, SELFPAY ==
[2022-06-22 11:25] LABS: Absolute Lymphocyte Count 2.51 X10^3/uL (0.83-4.51); Absolute Neutrophil Count 4.8 X10^3/uL (2.0-7.7); Basophil% 1.1 % (0-1); Eosinophil# 0.99 X10^3/uL; Eosinophils% 10.7 % (0-5); Hematocrit 34.9 % (37-47); Hemoglobin 10.1 g/dL (12.0-15.0); Lymphocyte # 2.51 X10^3/ul (0.83-4.51); Mean Corp Hgb Conc 28.9 g/dL (32-36); Mean Corpuscular Hgb 19.9 pg (27.0-32.0); Mean Corpuscular Volume 68.8 fL (81-99); Mean Platelet Vol. 10.3 fl (6.2-12.0); Monocyte# 0.81 X10^3/uL; Monocyte% 8.7 % (0-10); NRBC Flagged by Analyzer 0 % (0-5); Neutrophil # 4.84 X10^3/uL (2.7-7.7); Neutrophil % 52.1 % (47-70); POSITIVE MORPHOLOGY YES; Platelet Count 366 K/mm3 (150-450); RBC Distribution Width CV 20.5 % (11.6-14.6); RBC Distribution Width SD 49.2 fl (35.1-43.9); Red Blood Count 5.07 M/mm3 (4.2-5.4); White Blood Count 9.3 K/mm3 (4.4-11.0)
[2022-06-22 11:31] LABS: Differential Indicated SCAN CRITERIA MET
[2022-06-22 11:34] LABS: International Normalized Ratio 2.6; Prothrombin Time (Protime)PT. 27.5 SECONDS (11.7-14.9)
[2022-06-22 11:48] LABS: AST(SGOT) 16 U/L (15-37); Alanine Aminotransfer ALT/SGPT 17 U/L (13-56); Albumin, Serum 3.5 g/dL (3.2-5.0); Alkaline Phosphatase 85 U/L (45-117); Anion Gap 7 (5-15); BUN 6 mg/dL (7-18); BUN/Creat Ratio 8.1 RATIO (10-20); Calcium,Total 8.8 mg/dL (8.5-10.1); Chloride 111 mmol/L (98-107); Creatinine, Serum 0.74 mg/dL (0.55-1.02); EST Glomerular Filtration Rate 83 mL/min (>60); Est Glom Filt Rate - Afr Amer 101 mL/min (>60); Globulin 3.4 g/dL (2.2-4.2); Glucose 115 mg/dL (74-106); Potassium 3.5 mmol/L (3.5-5.1); Protein, Total 6.9 g/dL (6.4-8.2); Sodium Level 143 mmol/L (136-145); Thyroid Stim Hormone (TSH) 0.33 uIU/mL (0.358-3.74)
[2022-06-22 12:14] LABS: Differential Comment SCANNED; Hypochromasia 2+; Microcytosis 2+
== END 2022-06-22 23:59 ==
LOC: PAVLAB 10:53
PROVIDERS: PCP Obstetrics & Gynecology Gynecologic Oncology; Referring Provider Family Medicine; Visit Provider Family Medicine
DX: C54.1 Malignant neoplasm of endometrium (principal); K55.069 Acute infarction of intestine, part and extent unspecified; E07.9 Disorder of thyroid, unspecified; Z79.899 Other long term (current) drug therapy
CPT/HCPCS: 36415; 80053; 84443; 85025; 85610

== ENCOUNTER 2022-08-02 10:43 | Outpatient (RCR) | payer MEDICARE, SELFPAY ==
[2022-08-02 11:25] LABS: Absolute Neutrophil Count 4.6 X10^3/uL (2.0-7.7); Basophil# 0.06 X10^3/uL; Basophil% 0.7 % (0-1); Eosinophil# 0.72 X10^3/uL; Hematocrit 34.2 % (37-47); Mean Corp Hgb Conc 29.2 g/dL (32-36); Mean Corpuscular Hgb 20.6 pg (27.0-32.0); Mean Corpuscular Volume 70.4 fL (81-99); Mean Platelet Vol. 10.3 fl (6.2-12.0); Monocyte# 0.87 X10^3/uL; Monocyte% 9.7 % (0-10); NRBC Flagged by Analyzer 0 % (0-5); Neutrophil % 51.2 % (47-70); Platelet Count 349 K/mm3 (150-450); RBC Distribution Width CV 19.1 % (11.6-14.6); RBC Distribution Width SD 47.5 fl (35.1-43.9); Red Blood Count 4.86 M/mm3 (4.2-5.4)
[2022-08-02 11:41] LABS: International Normalized Ratio 1.7; Prothrombin Time (Protime)PT. 19.7 SECONDS (11.7-14.9)
[2022-08-02 12:18] LABS: AST(SGOT) 10 U/L (15-37); Alanine Aminotransfer ALT/SGPT 21 U/L (13-56); Albumin, Serum 3.5 g/dL (3.2-5.0); Alkaline Phosphatase 83 U/L (45-117); Anion Gap 8 (5-15); BUN 8 mg/dL (7-18); BUN/Creat Ratio 12.3 RATIO (10-20); Chloride 110 mmol/L (98-107); Creatinine, Serum 0.65 mg/dL (0.55-1.02); EST Glomerular Filtration Rate 96 mL/min (>60); Est Glom Filt Rate - Afr Amer 117 mL/min (>60); Globulin 3.5 g/dL (2.2-4.2); Glucose 105 mg/dL (74-106); Potassium 3.6 mmol/L (3.5-5.1); Sodium Level 143 mmol/L (136-145); Thyroid Stim Hormone (TSH) 0.91 uIU/mL (0.358-3.74)
== END 2022-08-22 23:59 ==
LOC: PAVLAB 10:43
PROVIDERS: PCP Obstetrics & Gynecology Gynecologic Oncology; Referring Provider Family Medicine; Visit Provider Family Medicine
DX: C54.1 Malignant neoplasm of endometrium (principal); K55.069 Acute infarction of intestine, part and extent unspecified; E07.9 Disorder of thyroid, unspecified; Z79.899 Other long term (current) drug therapy; Z51.11 Encounter for antineoplastic chemotherapy
CPT/HCPCS: 36415; 80053; 84443; 85025; 85610

== ENCOUNTER 2022-09-19 13:05 | Outpatient (RCR) | payer MEDICARE, SELFPAY ==
[2022-09-19 13:28] LABS: Absolute Lymphocyte Count 1.99 X10^3/uL (0.83-4.51); Absolute Neutrophil Count 4.5 X10^3/uL (2.0-7.7); Basophil# 0.03 X10^3/uL; Basophil% 0.4 % (0-1); Eosinophil# 0.31 X10^3/uL; Eosinophils% 4.1 % (0-5); Hematocrit 33.2 % (37-47); Hemoglobin 9.8 g/dL (12.0-15.0); Lymphocyte # 1.99 X10^3/ul (0.83-4.51); Lymphocyte % 26.6 % (19-41); Mean Corp Hgb Conc 29.5 g/dL (32-36); Mean Corpuscular Hgb 20.8 pg (27.0-32.0); Mean Corpuscular Volume 70.5 fL (81-99); Mean Platelet Vol. 10.5 fl (6.2-12.0); Monocyte# 0.64 X10^3/uL; Monocyte% 8.5 % (0-10); NRBC Flagged by Analyzer 0 % (0-5); Neutrophil % 60.1 % (47-70); Platelet Count 349 K/mm3 (150-450); RBC Distribution Width CV 18.9 % (11.6-14.6); RBC Distribution Width SD 45.7 fl (35.1-43.9); Red Blood Count 4.71 M/mm3 (4.2-5.4); White Blood Count 7.5 K/mm3 (4.4-11.0)
[2022-09-19 13:32] LABS: International Normalized Ratio 3.3; Prothrombin Time (Protime)PT. 33.2 SECONDS (11.7-14.9)
[2022-09-19 13:52] LABS: AST(SGOT) 21 U/L (15-37); Alanine Aminotransfer ALT/SGPT 28 U/L (13-56); Albumin, Serum 3.6 g/dL (3.2-5.0); Alkaline Phosphatase 85 U/L (45-117); Anion Gap 7 (5-15); BUN 10 mg/dL (7-18); BUN/Creat Ratio 12.9 RATIO (10-20); Calcium,Total 9.3 mg/dL (8.5-10.1); Chloride 106 mmol/L (98-107); Creatinine, Serum 0.78 mg/dL (0.55-1.02); EST Glomerular Filtration Rate 79 mL/min (>60); Est Glom Filt Rate - Afr Amer 95 mL/min (>60); Globulin 3.5 g/dL (2.2-4.2); Glucose 183 mg/dL (74-106); Potassium 3.3 mmol/L (3.5-5.1); Protein, Total 7.1 g/dL (6.4-8.2); Sodium Level 141 mmol/L (136-145); Thyroid Stim Hormone (TSH) 0.44 uIU/mL (0.358-3.74)
== END 2022-09-21 23:59 ==
LOC: PAVLAB 13:05
PROVIDERS: PCP Obstetrics & Gynecology Gynecologic Oncology; Referring Provider Family Medicine; Visit Provider Family Medicine
DX: C54.1 Malignant neoplasm of endometrium (principal); K55.069 Acute infarction of intestine, part and extent unspecified; E07.9 Disorder of thyroid, unspecified; Z79.899 Other long term (current) drug therapy; Z51.11 Encounter for antineoplastic chemotherapy
CPT/HCPCS: 36415; 80053; 84443; 85025; 85610

== ENCOUNTER 2022-10-06 11:52 | Outpatient (RCR) | payer MEDICARE, SELFPAY ==
[2022-10-06 12:20] LABS: INR Fingerstick 2.3; Prothrombin Time Fingerstick 27.3 SEC (11.7-14.9)
== END 2022-10-06 18:00 | disposition home or self-care (01) ==
LOC: LAB 11:52
PROVIDERS: PCP Obstetrics & Gynecology Gynecologic Oncology; Referring Provider Family Medicine; Visit Provider Family Medicine
DX: Z79.01 Long term (current) use of anticoagulants
CPT/HCPCS: 36416; 85610

== ENCOUNTER 2022-11-02 11:30 | Outpatient (RCR) | payer MEDICARE, SELFPAY ==
[2022-11-02 11:59] LABS: Absolute Lymphocyte Count 2.24 X10^3/uL (0.83-4.51); Absolute Neutrophil Count 3.8 X10^3/uL (2.0-7.7); Basophil# 0.05 X10^3/uL; Basophil% 0.7 % (0-1); Eosinophil# 0.37 X10^3/uL; Eosinophils% 5.1 % (0-5); Hematocrit 33.8 % (37-47); Hemoglobin 10.2 g/dL (12.0-15.0); Lymphocyte # 2.24 X10^3/ul (0.83-4.51); Lymphocyte % 31.2 % (19-41); Mean Corp Hgb Conc 30.2 g/dL (32-36); Mean Corpuscular Hgb 20.8 pg (27.0-32.0); Mean Corpuscular Volume 68.8 fL (81-99); Mean Platelet Vol. 10.1 fl (6.2-12.0); Monocyte# 0.66 X10^3/uL; Monocyte% 9.2 % (0-10); NRBC Flagged by Analyzer 0 % (0-5); Neutrophil # 3.83 X10^3/uL (2.7-7.7); Neutrophil % 53.2 % (47-70); Platelet Count 315 K/mm3 (150-450); RBC Distribution Width CV 19.2 % (11.6-14.6); RBC Distribution Width SD 46.7 fl (35.1-43.9); Red Blood Count 4.91 M/mm3 (4.2-5.4); White Blood Count 7.2 K/mm3 (4.4-11.0)
[2022-11-02 12:03] LABS: International Normalized Ratio 1.8; Prothrombin Time (Protime)PT. 20.9 SECONDS (11.7-14.9)
[2022-11-02 13:39] LABS: Glucose 110 mg/dL (74-106)
[2022-11-02 13:40] LABS: AST(SGOT) 11 U/L (15-37); Alanine Aminotransfer ALT/SGPT 18 U/L (13-56); Albumin, Serum 3.5 g/dL (3.2-5.0); Alkaline Phosphatase 77 U/L (45-117); BUN 7 mg/dL (7-18); BUN/Creat Ratio 10.3 RATIO (10-20); Calcium,Total 8.8 mg/dL (8.5-10.1); Chloride 110 mmol/L (98-107); Creatinine, Serum 0.68 mg/dL (0.55-1.02); EST Glomerular Filtration Rate 92 mL/min (>60); Est Glom Filt Rate - Afr Amer 112 mL/min (>60); Globulin 3.4 g/dL (2.2-4.2); Potassium 3.5 mmol/L (3.5-5.1); Protein, Total 6.9 g/dL (6.4-8.2); Sodium Level 142 mmol/L (136-145)
[2022-11-02 13:41] LABS: Anion Gap 5 (5-15); Thyroid Stim Hormone (TSH) 0.68 uIU/mL (0.358-3.74)
== END 2022-11-02 13:00 | disposition home or self-care (01) ==
LOC: LAB 11:30
PROVIDERS: PCP Obstetrics & Gynecology Gynecologic Oncology; Referring Provider Family Medicine; Visit Provider Family Medicine
DX: C54.1 Malignant neoplasm of endometrium (principal); K55.069 Acute infarction of intestine, part and extent unspecified; E07.9 Disorder of thyroid, unspecified; Z79.899 Other long term (current) drug therapy
CPT/HCPCS: 36415; 80053; 84443; 85025; 85610

== ENCOUNTER → 2022-11-25 | Outpatient (CLI) | payer MEDICARE, SELFPAY ==
[2022-11-23 12:50] LABS: Anion Gap 7 (5-15); BUN 7 mg/dL (7-18); BUN/Creat Ratio 9.1 RATIO (10-20); Calcium,Total 8.8 mg/dL (8.5-10.1); Chloride 111 mmol/L (98-107); Creatinine, Serum 0.77 mg/dL (0.55-1.02); EST Glomerular Filtration Rate 79 mL/min (>60); Est Glom Filt Rate - Afr Amer 96 mL/min (>60); Glucose 125 mg/dL (74-106); Potassium 3.7 mmol/L (3.5-5.1); Sodium Level 144 mmol/L (136-145)
--- NOTE | 2022-11-25 18:30 | CT_ITS ---
EXAM: CT ABDOMEN AND PELVIS WITH INTRAVENOUS CONTRAST CLINICAL INDICATION: PAIN TECHNIQUE: Helically acquired images were obtained of the abdomen and pelvis with intravenous contrast. This CT exam was performed using one or more of the following dose reduction techniques: automated exposure control, adjustment of the mA and/or kV according to patient size, and/or use of iterative reconstruction technique. This report was created using [employer] report generation technology. CONTRAST: Oral and amp; IV Readi-CAT and amp; 100mL Isovue-370 COMPARISON: 11/06/2021 FINDINGS: LOWER THORAX: Unremarkable. Lung bases are clear. No cardiomegaly. No significant pericardial effusion. ABDOMEN: LIVER: Unremarkable. Homogeneous. No focal mass. GALLBLADDER AND BILE DUCTS: Cholecystectomy. No intra- or extrahepatic biliary ductal dilation. PANCREAS: Unremarkable. No focal cystic or solid mass. SPLEEN: Unremarkable. Normal size without focal cystic or solid mass. ADRENALS: Unremarkable. No nodules. KIDNEYS AND URETERS: Stable nonobstructing stone measuring 7.5 mm in the right kidney. Normal renal size and position. STOMACH AND BOWEL: Surgical changes at the GE junction which may indicate a Vania fundoplication. No stomach or bowel distention. No focal inflammatory change. PELVIS: APPENDIX: The appendix is normal. BLADDER: Unremarkable. REPRODUCTIVE: Hysterectomy. ABDOMEN and PELVIS: INTRAPERITONEAL SPACE: Unremarkable. No ascites or other fluid collection. No free air. BONES/JOINTS: Degenerative changes of the spine. No suspicious lytic or blastic abnormality. SOFT TISSUES: Unremarkable. No discrete abdominal or pelvic wall hernia. VASCULATURE: Unremarkable. Abdominal aorta is non-dilated. LYMPH NODES: Unremarkable. No enlarged lymph nodes. CT/Abdomen/Pelvis WITH Contrast IMPRESSION: 1. No acute abnormalities identified in the abdomen/pelvis. 2. Stable nonobstructing stone measuring 7.5 mm in the right kidney. Electronically Signed: Odilno Donahue MD at 1:36 EST ,
== END | disposition home or self-care (01) ==
PROVIDERS: PCP Obstetrics & Gynecology Gynecologic Oncology
DX: C54.1 Malignant neoplasm of endometrium (principal); R10.9 Unspecified abdominal pain
CPT/HCPCS: 36415; 74177; 80048; Q9967

== ENCOUNTER 2022-12-14 15:38 | Outpatient (RCR) | payer MEDICARE, SELFPAY ==
[2022-12-14 11:56] LABS: International Normalized Ratio 2.8; Prothrombin Time (Protime)PT. 29.5 SECONDS (11.7-14.9)
[2022-12-14 11:58] LABS: Absolute Lymphocyte Count 2.05 X10^3/uL (0.83-4.51); Absolute Neutrophil Count 3.6 X10^3/uL (2.0-7.7); Basophil# 0.06 X10^3/uL; Basophil% 0.8 % (0-1); Eosinophil# 0.84 X10^3/uL; Eosinophils% 11.7 % (0-5); Hematocrit 35.2 % (37-47); Hemoglobin 10.2 g/dL (12.0-15.0); Lymphocyte # 2.05 X10^3/ul (0.83-4.51); Lymphocyte % 28.4 % (19-41); Mean Corpuscular Hgb 20.4 pg (27.0-32.0); Mean Corpuscular Volume 70.4 fL (81-99); Mean Platelet Vol. 11.3 fl (6.2-12.0); Monocyte# 0.63 X10^3/uL; Monocyte% 8.7 % (0-10); NRBC Flagged by Analyzer 0 % (0-5); POSITIVE MORPHOLOGY YES; Platelet Count 278 K/mm3 (150-450); RBC Distribution Width CV 20.7 % (11.6-14.6); White Blood Count 7.2 K/mm3 (4.4-11.0)
[2022-12-14 12:12] LABS: AST(SGOT) 10 U/L (15-37); Alanine Aminotransfer ALT/SGPT 19 U/L (13-56); Albumin, Serum 3.4 g/dL (3.2-5.0); Alkaline Phosphatase 79 U/L (45-117); Anion Gap 8 (5-15); BUN 10 mg/dL (7-18); BUN/Creat Ratio 14.4 RATIO (10-20); Calcium,Total 8.8 mg/dL (8.5-10.1); Chloride 112 mmol/L (98-107); Creatinine, Serum 0.69 mg/dL (0.55-1.02); EST Glomerular Filtration Rate 90 mL/min (>60); Est Glom Filt Rate - Afr Amer 108 mL/min (>60); Globulin 3.4 g/dL (2.2-4.2); Glucose 122 mg/dL (74-106); Potassium 3.6 mmol/L (3.5-5.1); Protein, Total 6.8 g/dL (6.4-8.2); Sodium Level 145 mmol/L (136-145); Thyroid Stim Hormone (TSH) 0.29 uIU/mL (0.358-3.74)
[2022-12-14 12:20] LABS: Differential Indicated SCAN CRITERIA MET
[2022-12-14 13:08] LABS: Anisocytosis 2+; Differential Comment SCANNED; Microcytosis 1+; Ovalocyte RARE
== END 2022-12-20 23:59 ==
LOC: PAVLAB 15:38
PROVIDERS: PCP Obstetrics & Gynecology Gynecologic Oncology; Referring Provider Family Medicine; Visit Provider Family Medicine
DX: C54.1 Malignant neoplasm of endometrium (principal); Z79.899 Other long term (current) drug therapy; Z79.01 Long term (current) use of anticoagulants
CPT/HCPCS: 36415; 80053; 84443; 85025; 85610

== ENCOUNTER 2023-02-09 10:04 | Outpatient (RCR) | payer MEDICARE, SELFPAY ==
[2023-01-25 10:22] LABS: Absolute Lymphocyte Count 2.26 X10^3/uL (0.83-4.51); Absolute Neutrophil Count 3.7 X10^3/uL (2.0-7.7); Basophil# 0.05 X10^3/uL; Basophil% 0.7 % (0-1); Eosinophil# 0.57 X10^3/uL; Eosinophils% 7.8 % (0-5); Hemoglobin 10.1 g/dL (12.0-15.0); Lymphocyte # 2.26 X10^3/ul (0.83-4.51); Mean Corp Hgb Conc 28.9 g/dL (32-36); Mean Corpuscular Hgb 20.3 pg (27.0-32.0); Mean Corpuscular Volume 70.3 fL (81-99); Mean Platelet Vol. 10.6 fl (6.2-12.0); Monocyte# 0.74 X10^3/uL; Monocyte% 10.2 % (0-10); NRBC Flagged by Analyzer 0 % (0-5); Neutrophil # 3.65 X10^3/uL (2.7-7.7); POSITIVE MORPHOLOGY YES; Platelet Count 358 K/mm3 (150-450); RBC Distribution Width CV 20.5 % (11.6-14.6); RBC Distribution Width SD 50.4 fl (35.1-43.9); Red Blood Count 4.98 M/mm3 (4.2-5.4); White Blood Count 7.3 K/mm3 (4.4-11.0)
[2023-01-25 10:28] LABS: Differential Indicated SCAN CRITERIA MET
[2023-01-25 10:32] LABS: International Normalized Ratio 1.7
[2023-01-25 10:43] LABS: ALB/GLOB Ratio 1.1 RATIO (0.9-2.4); AST(SGOT) 13 U/L (15-37); Alanine Aminotransfer ALT/SGPT 19 U/L (13-56); Albumin, Serum 3.5 g/dL (3.2-5.0); Alkaline Phosphatase 74 U/L (45-117); Anion Gap 7 (5-15); BUN 7 mg/dL (7-18); BUN/Creat Ratio 9.8 RATIO (10-20); Calcium,Total 8.9 mg/dL (8.5-10.1); Chloride 111 mmol/L (98-107); Creatinine, Serum 0.71 mg/dL (0.55-1.02); EST Glomerular Filtration Rate 87 mL/min (>60); Est Glom Filt Rate - Afr Amer 105 mL/min (>60); Globulin 3.2 g/dL (2.2-4.2); Glucose 106 mg/dL (74-106); Potassium 3.5 mmol/L (3.5-5.1); Protein, Total 6.7 g/dL (6.4-8.2); Sodium Level 143 mmol/L (136-145); Thyroid Stim Hormone (TSH) 0.26 uIU/mL (0.358-3.74)
[2023-01-25 11:05] LABS: Microcytosis 2+
[2023-02-09 10:21] LABS: Prothrombin Time Fingerstick 22.1 SEC (11.7-14.9)
== END 2023-02-19 23:59 ==
LOC: PAVLAB 10:04
PROVIDERS: PCP Obstetrics & Gynecology Gynecologic Oncology; Referring Provider Family Medicine; Visit Provider Family Medicine
DX: C54.1 Malignant neoplasm of endometrium (principal); Z79.01 Long term (current) use of anticoagulants; Z79.899 Other long term (current) drug therapy; Z51.11 Encounter for antineoplastic chemotherapy; E07.9 Disorder of thyroid, unspecified
CPT/HCPCS: 36415; 36416; 80053; 84443; 85025; 85610

== ENCOUNTER → 2023-08-02 | Outpatient (CLI) | payer MEDICARE, SELFPAY | END | disposition home or self-care (01) | LOC: LABSPEC 12:49 | PROVIDERS: Referring Provider Surgery; Visit Provider Surgery | DX: R19.7 Diarrhea, unspecified (principal); K58.9 Irritable bowel syndrome, unspecified | CPT/HCPCS: 87177; 87209; 87493; 87506 ==

== ENCOUNTER 2023-10-12 10:00 | Outpatient (RCR) | payer MEDICARE, SELFPAY ==
[2023-10-12 10:58] LABS: International Normalized Ratio 3.8; Prothrombin Time (Protime)PT. 37.8 SECONDS (11.7-14.9)
== END 2023-10-22 18:00 | disposition home or self-care (01) ==
LOC: LAB 10:00
PROVIDERS: Referring Provider Family Medicine; Visit Provider Family Medicine
DX: Z79.899 Other long term (current) drug therapy; K55.069 Acute infarction of intestine, part and extent unspecified; C54.1 Malignant neoplasm of endometrium
CPT/HCPCS: 36415; 85610

== ENCOUNTER 2023-10-24 14:21 | Outpatient (RCR) | payer MEDICARE, SELFPAY ==
[2023-10-24 15:30] LABS: International Normalized Ratio 3.1; Prothrombin Time (Protime)PT. 32.6 SECONDS (11.7-14.9)
== END 2023-10-24 18:00 | disposition home or self-care (01) ==
LOC: LAB 14:21
PROVIDERS: Referring Provider Family Medicine; Visit Provider Family Medicine
DX: Z79.899 Other long term (current) drug therapy; K55.069 Acute infarction of intestine, part and extent unspecified
CPT/HCPCS: 36415; 85610

== ENCOUNTER 2023-12-20 10:56 | Outpatient (RCR) | payer MEDICARE, SELFPAY ==
[2023-11-28 07:31] LABS: INR Fingerstick 3.3; Prothrombin Time Fingerstick 32.5 SEC (11.7-14.9)
[2023-12-20 11:04] LABS: INR Fingerstick 3.3; Prothrombin Time Fingerstick 32.5 SEC (11.7-14.9)
== END 2023-12-21 18:00 | disposition home or self-care (01) ==
LOC: LAB 10:56
PROVIDERS: Referring Provider Family Medicine; Visit Provider Family Medicine
DX: C54.1 Malignant neoplasm of endometrium (principal); Z79.01 Long term (current) use of anticoagulants; Z79.899 Other long term (current) drug therapy
CPT/HCPCS: 36416; 85610

== ENCOUNTER 2024-01-09 12:41 | Outpatient (RCR) | payer MEDICARE, SELFPAY ==
[2024-01-09 12:50] LABS: Prothrombin Time Fingerstick 20.6 SEC (11.7-14.9)
== END 2024-01-20 18:00 | disposition home or self-care (01) ==
LOC: LAB 12:41
PROVIDERS: Referring Provider Family Medicine; Visit Provider Family Medicine
DX: C54.1 Malignant neoplasm of endometrium (principal); Z79.01 Long term (current) use of anticoagulants; Z79.899 Other long term (current) drug therapy
CPT/HCPCS: 36416; 85610

== ENCOUNTER 2024-02-15 10:24 | Outpatient (RCR) | payer MEDICARE, SELFPAY ==
[2024-01-26 13:47] LABS: INR Fingerstick 2.1
[2024-02-15 10:30] LABS: INR Fingerstick 2.3; Prothrombin Time Fingerstick 23.9 SEC (11.7-14.9)
== END 2024-02-20 23:07 | disposition home or self-care (01) ==
LOC: LAB 10:24
PROVIDERS: Referring Provider Family Medicine; Visit Provider Family Medicine
DX: C54.1 Malignant neoplasm of endometrium (principal); Z79.899 Other long term (current) drug therapy
CPT/HCPCS: 36416; 85610

== ENCOUNTER → 2024-04-22 | Outpatient (CLI) | payer MEDICARE, SELFPAY ==
--- NOTE | 2024-04-22 19:20 | CT_ITS ---
EXAM: CT CHEST, ABDOMEN AND PELVIS WITH INTRAVENOUS CONTRAST CLINICAL INDICATION: CANCER TECHNIQUE: Helically acquired images were obtained of the chest, abdomen and pelvis with intravenous contrast. This CT exam was performed using one or more of the following dose reduction techniques: automated exposure control, adjustment of the mA and/or kV according to patient size, and/or use of iterative reconstruction technique. CONTRAST: Oral and amp; IV Readi-CAT and amp; 100mL Isovue-370 COMPARISON: CT abdomen and pelvis 11/25/2022 FINDINGS: CHEST: LUNGS AND PLEURAL SPACES: Normal. No mass. No consolidation or edema. No pleural effusion or thickening. No pneumothorax. HEART: Mild coronary artery calcification. No pericardial effusion. Normal heart size. MEDIASTINUM: Surgical changes of fundoplication again noted associated with small hiatal hernia. No mediastinal or hilar adenopathy. Esophagus is unremarkable. THYROID: Normal. No thyroid nodules or calcification. ABDOMEN: LIVER: Mild hepatic steatosis. GALLBLADDER AND BILE DUCTS: Cholecystectomy clips are in place. PANCREAS: Normal. No focal cystic or solid mass. SPLEEN: Normal. Normal size without focal cystic or solid mass. ADRENALS: Normal. No nodules. KIDNEYS AND URETERS: Nonobstructive stone or stones again noted within the inner pole calyx of the right kidney. Punctate stone noted within the lower pole of the left kidney. STOMACH AND BOWEL: Normal. No bowel obstruction or ileus. No focal inflammatory change. PELVIS: APPENDIX: Appendix is visualized and normal in appearance. BLADDER: Normal. REPRODUCTIVE: Hysterectomy noted. CHEST, ABDOMEN and PELVIS: INTRAPERITONEAL SPACE: Normal. No ascites or other fluid collection. No free air. BONES/JOINTS: No suspicious lytic or blastic abnormality. SOFT TISSUES: Normal. No discrete abdominal or pelvic wall hernia. VASCULATURE: No aortic aneurysm or dissection. LYMPH NODES: Normal. No enlarged lymph nodes. CT/CT Chest, Abd, Pel w/Contrast IMPRESSION: 1. No acute cardiopulmonary abnormality. 2. Mild hepatic steatosis. 3. Bilateral nephrolithiasis. 4. Small hiatal hernia associated with fundoplication. 5. No evidence of metastatic disease within the chest abdomen and pelvis. Electronically Signed: Jairo Traylor MD at 16:57 EDT ,
[2024-04-22 19:36] LABS: CREATININE FINGERSTICK < 1.0 mg/dL (0.55-1.02)
== END | disposition home or self-care (01) ==
DX: Z01.89 Encounter for other specified special examinations (principal); C54.1 Malignant neoplasm of endometrium
CPT/HCPCS: 71260; 74177; Q9967; A4216

== ENCOUNTER 2024-05-10 13:38 | Outpatient (RCR) | payer MEDICARE, SELFPAY ==
[2024-04-23 16:49] LABS: INR Fingerstick 1.9; Prothrombin Time Fingerstick 20.5 SEC (11.7-14.9)
[2024-05-06 10:42] LABS: INR Fingerstick 1.7; Prothrombin Time Fingerstick 18.1 SEC (11.7-14.9)
[2024-05-10 13:46] LABS: INR Fingerstick 2.6; Prothrombin Time Fingerstick 26.8 SEC (11.7-14.9)
== END 2024-05-22 18:00 | disposition home or self-care (01) ==
LOC: LAB 13:38
PROVIDERS: Referring Provider Family Medicine; Visit Provider Family Medicine
DX: Z79.899 Other long term (current) drug therapy; C54.1 Malignant neoplasm of endometrium
CPT/HCPCS: 36416; 85610

== ENCOUNTER 2024-06-18 11:27 | Outpatient (RCR) | payer MEDICARE, SELFPAY ==
[2024-06-18 11:38] LABS: INR Fingerstick 3.3; Prothrombin Time Fingerstick 32.7 SEC (11.7-14.9)
== END 2024-06-18 18:00 | disposition home or self-care (01) ==
LOC: LAB 11:27
PROVIDERS: PCP Family Medicine; Referring Provider Family Medicine; Visit Provider Family Medicine
DX: Z79.899 Other long term (current) drug therapy (principal)
CPT/HCPCS: 36416; 85610

== ENCOUNTER 2024-07-22 12:16 | Outpatient (RCR) | payer MEDICARE, SELFPAY ==
[2024-07-16 10:55] LABS: INR Fingerstick 4.6; Prothrombin Time Fingerstick 44.1 SEC (11.7-14.9)
[2024-07-16 11:42] LABS: International Normalized Ratio 4.5; Prothrombin Time (Protime)PT. 42.4 SECONDS (11.7-14.9)
[2024-07-22 12:28] LABS: INR Fingerstick 1.8; Prothrombin Time Fingerstick 19.3 SEC (11.7-14.9)
== END 2024-07-22 18:00 | disposition home or self-care (01) ==
LOC: LAB 12:16
PROVIDERS: PCP Family Medicine; Referring Provider Family Medicine; Visit Provider Family Medicine
DX: Z79.899 Other long term (current) drug therapy (principal); Z79.01 Long term (current) use of anticoagulants
CPT/HCPCS: 36416; 85610

== ENCOUNTER 2024-08-08 11:09 | Outpatient (RCR) | payer MEDICARE, SELFPAY ==
[2024-08-09 15:58] LABS: INR Fingerstick 2.7; Prothrombin Time Fingerstick 28.4 SEC (11.7-14.9)
[2024-08-22 12:07] LABS: INR Fingerstick 2.7; Prothrombin Time Fingerstick 28.4 SEC (11.7-14.9)
== END 2024-08-08 18:00 | disposition home or self-care (01) ==
LOC: LAB 11:09
PROVIDERS: PCP Family Medicine; Referring Provider Family Medicine; Visit Provider Family Medicine
DX: Z79.899 Other long term (current) drug therapy (principal); C54.1 Malignant neoplasm of endometrium
CPT/HCPCS: 36416; 85610

== ENCOUNTER 2024-09-12 10:56 | Outpatient (RCR) | payer MEDICARE, SELFPAY ==
[2024-09-12 11:37] LABS: International Normalized Ratio 2.7; Prothrombin Time (Protime)PT. 28.3 SECONDS (11.7-14.9)
[2024-09-13 04:08] LABS: Cancer Antigen 125 18.3 U/mL (0.0-38.1)
== END 2024-09-21 18:00 | disposition home or self-care (01) ==
LOC: LAB 10:56
PROVIDERS: PCP Family Medicine; Referring Provider Family Medicine; Visit Provider Family Medicine
DX: Z79.899 Other long term (current) drug therapy (principal); C54.1 Malignant neoplasm of endometrium
CPT/HCPCS: 36415; 85610; 86304

== ENCOUNTER 2024-10-24 10:56 | Outpatient (RCR) | payer MEDICARE, SELFPAY ==
[2024-10-24 11:30] LABS: Prothrombin Time Fingerstick 31.2 SEC (11.7-14.9)
== END 2024-10-24 18:00 | disposition home or self-care (01) ==
LOC: LAB 10:56
PROVIDERS: PCP Family Medicine; Referring Provider Family Medicine; Visit Provider Family Medicine
DX: Z79.899 Other long term (current) drug therapy (principal); K55.069 Acute infarction of intestine, part and extent unspecified
CPT/HCPCS: 36416; 85610

== ENCOUNTER 2024-12-09 13:17 | Outpatient (RCR) | payer MEDICARE, SELFPAY ==
[2024-12-02 11:07] LABS: INR Fingerstick 4.5; Prothrombin Time Fingerstick 44.5 SEC (11.7-14.9)
[2024-12-02 11:45] LABS: Prothrombin Time (Protime)PT. 40.5 SECONDS (11.7-14.9)
[2024-12-02 12:01] LABS: International Normalized Ratio 4.1
[2024-12-09 13:27] LABS: INR Fingerstick 2.8; Prothrombin Time Fingerstick 29.4 SEC (11.7-14.9)
== END 2024-12-20 18:00 | disposition home or self-care (01) ==
LOC: LAB 13:17
PROVIDERS: PCP Family Medicine; Referring Provider Family Medicine; Visit Provider Family Medicine
DX: Z86.718 Personal history of other venous thrombosis and embolism; C54.1 Malignant neoplasm of endometrium; Z79.01 Long term (current) use of anticoagulants; I82.90 Acute embolism and thrombosis of unspecified vein; Z79.899 Other long term (current) drug therapy
CPT/HCPCS: 36416; 85610

== ENCOUNTER 2025-02-04 12:50 | Outpatient (RCR) | payer MEDICARE, SELFPAY ==
[2025-02-04 13:30] LABS: INR Fingerstick 2.2
== END 2025-02-19 18:00 | disposition home or self-care (01) ==
LOC: LAB 12:50
PROVIDERS: PCP Family Medicine; Referring Provider Family Medicine; Visit Provider Family Medicine
DX: Z86.718 Personal history of other venous thrombosis and embolism (principal); Z79.01 Long term (current) use of anticoagulants
CPT/HCPCS: 36416; 85610

== ENCOUNTER 2025-03-20 12:04 | Outpatient (RCR) | payer MEDICARE, SELFPAY ==
[2025-03-13 10:42] LABS: International Normalized Ratio 1.9; Prothrombin Time (Protime)PT. 22.5 SECONDS (11.7-14.9)
[2025-03-18 12:08] LABS: Cancer Antigen 125 2303 19.9 U/mL (0.0-38.1)
[2025-03-20 12:21] LABS: INR Fingerstick 1.8; Prothrombin Time Fingerstick 20.2 SEC (11.7-14.9)
== END 2025-03-20 18:00 | disposition home or self-care (01) ==
LOC: LAB 12:04
PROVIDERS: PCP Family Medicine; Referring Provider Obstetrics & Gynecology Gynecologic Oncology; Visit Provider Family Medicine
DX: Z86.718 Personal history of other venous thrombosis and embolism; Z79.01 Long term (current) use of anticoagulants; C54.1 Malignant neoplasm of endometrium; Z79.899 Other long term (current) drug therapy
CPT/HCPCS: 36415; 36416; 85610; 86304

== ENCOUNTER 2025-04-08 15:10 | Outpatient (RCR) | payer MEDICARE, SELFPAY ==
[2025-04-08 15:26] LABS: INR Fingerstick 2.5; Prothrombin Time Fingerstick 26.4 SEC (11.7-14.9)
== END 2025-04-08 18:00 | disposition home or self-care (01) ==
LOC: LAB 15:10
PROVIDERS: PCP Family Medicine; Referring Provider Obstetrics & Gynecology Gynecologic Oncology; Visit Provider Family Medicine
DX: C54.1 Malignant neoplasm of endometrium (principal); Z86.718 Personal history of other venous thrombosis and embolism
CPT/HCPCS: 36416; 85610

== ENCOUNTER 2025-05-28 13:55 | Outpatient (RCR) | payer MEDICARE, SELFPAY ==
[2025-05-28 14:07] LABS: INR Fingerstick 2.3
== END 2025-05-28 18:00 | disposition home or self-care (01) ==
LOC: LAB 13:55
PROVIDERS: PCP Family Medicine; Referring Provider Obstetrics & Gynecology Gynecologic Oncology; Visit Provider Family Medicine
DX: Z86.718 Personal history of other venous thrombosis and embolism; Z79.01 Long term (current) use of anticoagulants; I82.90 Acute embolism and thrombosis of unspecified vein; Z79.899 Other long term (current) drug therapy; C54.1 Malignant neoplasm of endometrium
CPT/HCPCS: 36416; 85610

== ENCOUNTER → 2025-07-01 | Outpatient (CLI) | payer MEDICARE, SELFPAY ==
[2025-07-01 17:48] LABS: Anion Gap 14 (5-15); BUN 11 mg/dL (4-19); BUN/Creat Ratio 12.3 RATIO (10-20); Calcium,Total 9.0 mg/dL (7.6-11.0); Carbon Dioxide 21.5 mmol/L (21.0-32.0); Chloride 102 mmol/L (98-108); Glucose 103 mg/dL (70-99); Potassium 3.3 mmol/L (3.3-5.1)
== END | disposition home or self-care (01) ==
LOC: MTLAB 11:41
PROVIDERS: PCP Family Medicine; Referring Provider Urology; Visit Provider Urology
DX: R31.9 Hematuria, unspecified (principal)
CPT/HCPCS: 36415; 80048

== ENCOUNTER → 2025-07-01 | Outpatient (CLI) | payer MEDICARE, SELFPAY ==
--- NOTE | 2025-07-01 | CYSPIN_PTH ---
PATIENT: NA[facility] HIGHTOWER [facility] U[facility][id number] AGE/SX: 69/F ROOM: RE07/01/[address]: Dr. Porsha Mason MD : 1955 BED: DIS: 07/01/2025 SPEC #: [id number] RECD: 07/01/25 16:57 STATUS: MILA RENiki #: [id number] ANITA: 07/01/25 00:[address]: Porsha Mason DEPT: CYTOLOGY RECD BY: Devante Mayo ENTERED: 07/02/25 08:26 SP TYPE: CYSPIN FL ANGELI DR: Dr. Kavya Law MD Tissues: A - Urine Procedures: Pap Stain (control) Special Stain Group II Cytospin Fluid HEADER OPERATION: Not noted PRE-OP DIAGNOSIS: Gross hematuria TISSUE SUBMITTED: A- Urine for cytology - voided DIAGNOSIS CYTOLOGY A. Urine, voided (cytospin): - No malignant cells identified. - Acute inflammation. CYTOLOGY STUDY Slides are reviewed. CYTOLOGY GROSS A. Received is 5 ml of [id number] fluid labeled with the patient's name and and designated per the requisition as urine. Submitted for cytology preparation. 07/02/2025 CPT: 79729
[2025-07-01 16:58] LABS: Cytology, Body Fluid / CSF SEE PATHOLOGY REPORT
== END | disposition home or self-care (01) ==
LOC: LABSPEC 16:55
PROVIDERS: PCP Family Medicine; Visit Provider Urology
DX: R31.0 Gross hematuria (principal)
CPT/HCPCS: 88108; 88313

== ENCOUNTER 2025-07-02 12:06 | Outpatient (RCR) | payer MEDICARE, SELFPAY ==
[2025-07-02 12:18] LABS: INR Fingerstick 7.5
[2025-07-02 13:01] LABS: Prothrombin Time (Protime)PT. 52.2 SECONDS (11.7-14.9)
== END 2025-07-22 18:00 | disposition home or self-care (01) ==
LOC: LAB 12:06
PROVIDERS: PCP Family Medicine; Referring Provider Obstetrics & Gynecology Gynecologic Oncology; Visit Provider Family Medicine
DX: Z86.718 Personal history of other venous thrombosis and embolism; Z79.01 Long term (current) use of anticoagulants
CPT/HCPCS: 36415; 36416; 85610